=== PATIENT | male | born 1940 | race Caucasian/White ===

== ENCOUNTER → 2017-12-05 11:03 | Outpatient (CLI) | payer MEDICARE, OTHER, SELFPAY | PROVIDERS: Family Provider Family Medicine; PCP Family Medicine; Visit Provider Nurse Practitioner Acute Care | DX: G47.33 Obstructive sleep apnea (adult) (pediatric) (principal) | CPT/HCPCS: 98960; G0463 ==

== ENCOUNTER 2017-12-20 13:00 | Outpatient (RCR) | payer MEDICARE, OTHER, SELFPAY ==
--- NOTE | 2017-12-01 09:19 | HP.OTEVAL ---
Patient's Visit Information JADE CHAVIRA is a 77 year old M, referred to Occupational Therapy by Kell Crenshaw, JENC,POWER TOOL REPAIR TECHNICIAN.GUNNAR, with a diagnosis of left hand weakness. 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 pt unable to identify objects given to him for stereognosis - In-Hand Manipulation Finger to Palm Translation: Normal - Right, Severe - Left, Unable - Left Palm to Finger Translation: Normal - Right, Unable - Left Shift: Normal - Right, Severe - Left - DASH-Disabilities of Arm, Shoulder& Hand DASH Sum: 90 - Goals Goal:: pt will demo a increase in left installation service representative to 55# or greater to increase ind. with BADLS and IADSL. Pt will demo a increase in left later/tripod pinch by 4# to increase ind with bathing-dressing and work tasks by d/c Goal:: pt will demo the ability to manipulate fasteners at a PRASANTH level with ad. as needed by d/c Goal:: pt will demo understanding of visual compensation for lack of sensation of left hand for increase ind. with BADLS and IADLS by d/c - Rehabilitation General Assessment: pt demo decreased strenght in LUE due to hx of CVA- pt also demo decrease sensation limiting pts ability to hold onto objects. Therpay will challenge pts strength and ed. pt on visual compensatory raza. when using left hand with BADLS Rehabilitation Potential: Good - Anticipated Interventions Anticipated Interventions: Strengthening, Sensory Retraining, Modalities, Fine Motor Coord/Charles, Neuro Reeducation, Sensory Stimulation, Education re assistive Equipment - Visit Plan Frequency: 1-2x /Week Duration: 4 Weeks General Plan: OT will initiate increase in left UE strengthening to increase pts ind. with BADLS and IADLS- therapy will ed. pt on ad. eq and viusal compensation with BADLS and IADLS. TEXT: Thank you for the opportunity to evaluate your patient. For Medicare and Medicare HMO plans, please review the plan of care and approve it. It will need to be FAXED BACK to us at [phone] for Medicare purposes. Please let me know if there are questions or concerns regarding this plan of care. Physician Signature: Date:
--- NOTE | 2018-03-27 14:55 | HP.OT.NRP ---
HP - Discharge Summary - Patient Information JADE CHAVIRA was seen in my office for initial evaluation on 11/28/17. The following Plan of Care was established for this patient: Initial Frequency: 1-2x /Week Initial Duration: 4 Weeks Plan: cont POC - Anticipated Interventions Anticipated Interventions: Strengthening, Sensory Retraining, Modalities, Fine Motor Coord/Charles, Neuro Reeducation, Sensory Stimulation, Education re assistive Equipment, Education re Life-long lymphedema Management This patient was last seen in our office 12/20/17. Pertinent comments regarding their Occupational therapy will appear below: Pt was seen for 6 visits- pts states she did not see any changes in his abilities or sensation. pt d/c due to lack of progress At this point I will be discontinuing this patient from occupational therapy. I would be happy to see this patient again in the future if found appropriate by the physician. Thank you! Ritika Gipson, OTR/L, CHT
== END 2017-12-20 19:00 | disposition home or self-care (01) ==
LOC: OT 13:00
PROVIDERS: Family Provider Family Medicine; PCP Family Medicine; Visit Provider Nurse Practitioner Acute Care
DX: R53.1 Weakness (principal)
CPT/HCPCS: 97110; 97166; 97530

== ENCOUNTER 2018-02-25 16:34 | Emergency (ER) | payer MEDICARE, OTHER, SELFPAY ==
[2018-02-25 16:35] VITALS: BP 148/64; PULSE 79; RESP 18; TEMP 37.2; O2SAT 99; BMI 20.7
--- NOTE | 2018-02-25 17:00 | RAD_ITS ---
XR Hand Min 3 Views INDICATION: FALL RILEY, BRUISING AND SWELLING LEFT 3-5 METACARPAL AREA, UNABLE TO REMOVE RING COMPARISON: None TECHNIQUE: 3 views of the left hand FINDINGS: The osseous structures are intact and well aligned. Interphalangeal joint spaces are decreased with marginal osteophytes. Degenerative joint space narrowing is also present at the carpal bones and radiocarpal joint. No evidence of acute fracture. RAD/Hand Min 3 Views IMPRESSION: Degenerative changes. No evidence of acute fracture. at 1743 Reported and signed by: Lila Katz MD Electronically Signed: Lila Katz MD at 17:41 EDT Tel , Service support ,
--- NOTE | 2018-02-25 18:17 | ED.VISSUMM ---
- ER Visit Summary Date of Service: 02/25/18 Chief Complaint: Left hand swollen History of Present Illness: The patient is a [address] Rina Gupta. Reports that he has a history of a stroke and since that time his had problems with his balance. States that 2 days ago he lost his balance and fell. Cut himself his left hand. Reports that his left hand is now swollen. He has a dull pain that is 4-10 with movement 2 out of 10 at rest. He denies any blow to the head or loss of consciousness. No neck, back, shoulder, wrist, or hip pain. Review of systems: General: No fever, chills, cold sweats. Cardiovascular: No chest pain, palpitations. Respiratory: No cough, shortness of breath, dyspnea on exertion. Gastrointestinal: No abdominal pain, nausea, vomiting, diarrhea, melena, or hematochezia. Genitourinary: No dysuria, frequency, hematuria. Skin: No rash. Neuro: No headache, numbness, weakness. Physical Examination: Vitals: Stable. Afebrile. Neck: No vertebral tenderness. Full ROM without difficulty. Cleared by NEXUS criteria. Back: No vertebral tenderness. General: A&O x 3. NAD. Cardiovascular exam: Regular rate and rhythm, no murmur, rub or gallop. Respiratory exam: Chest nontender. No crepitus. Clear to auscultation bilaterally. No wheezes or stridor. Abdominal exam: Soft, nontender, nondistended, normal bowel sounds. No pain in RUQ or LUQ specifically. No peritoneal signs. Extremity: Moderate soft tissue swelling and contusion to the dorsum of his left hand. It is minimally tender to palpation. He is neurovascular intact distally. Test Results: X-ray is negative. Emergency Department Course and Treatment: Patient refused pain medications. Treatment Plan: Patient be discharged instructions to ice and elevate the area. Follow-up his primary care physician 1 week if not improving. Return to the emergency department for any worsening symptoms. Disposition: To home in improved and stable condition. Impression: 1. Mechanical fall. 2. Left hand contusion. This note was generated with [employer] software. It may contain incorrect words, spelling, and punctuation that were not noted in review of the chart prior to signing ED Disposition - Plan for ED Patient: Disposition: Home or Assisted Living Chief Complaint: Upper Extremity Injury Instructions: ED Contusion Hand Referrals: London Gupta MD [Primary Care Provider] - 1 Week if not improving
[2018-02-25 18:37] VITALS: PULSE 82; RESP 17; O2SAT 97
== END 2018-02-25 18:38 | disposition home or self-care (01) ==
LOC: ED 17:21
PROVIDERS: Emergency Provider Emergency Medicine; Family Provider Family Medicine; PCP Family Medicine
DX: S60.222A Contusion of left hand, initial encounter (principal); I69.998 Other sequelae following unspecified cerebrovascular disease; I62.9 Nontraumatic intracranial hemorrhage, unspecified; I25.10 Atherosclerotic heart disease of native coronary artery without angina pectoris; M35.3 Polymyalgia rheumatica; Z79.02 Long term (current) use of antithrombotics/antiplatelets; Z79.4 Long term (current) use of insulin; Z79.899 Other long term (current) drug therapy; W18.30XA Fall on same level, unspecified, initial encounter; Y93.89 Activity, other specified; Y92.89 Other specified places as the place of occurrence of the external cause; Y99.8 Other external cause status
CPT/HCPCS: 73130; 99282

== ENCOUNTER → 2018-10-03 10:05 | Outpatient (CLI) | payer MEDICARE, OTHER, SELFPAY ==
[2018-09-24 11:35] VITALS: BMI 21.9
[2018-10-03 11:41] LABS: Absolute Lymphocyte Count 0.86 X10^3/ul (0.83-4.51); Absolute Neutrophil Count 4.4 X10^3/uL (2.0-7.7); Basophil# 0.02 X10^3/uL; Basophil% 0.3 % (0-1); Eosinophil# 0.14 X10^3/uL; Eosinophils% 2.4 % (0-5); Hematocrit 40.7 % (40-54); Hemoglobin 13.9 g/dl (13.0-16.5); Lymphocyte # 0.86 X10^3/ul (4.0); Lymphocyte % 14.6 % (19-41); Mean Corp Hgb Conc 34.2 g/gl (32-36); Mean Corpuscular Hgb 30.8 pg (27.0-32.0); Mean Corpuscular Volume 90.2 fL (80-94); Monocyte# 0.41 X10^3/uL; Neutrophil # 4.44 X10^3/uL (2.7-7.7); Neutrophil % 75.4 % (47-70); Platelet Count 177 K/mm3 (150-450); RBC Distribution Width SD 42.3 fl (35.1-43.9); Red Blood Count 4.51 M/mm3 (4.6-6.2); White Blood Count 5.9 K/mm3 (4.4-11.0)
[2018-10-03 11:45] LABS: POSITIVE COUNT NO; POSITIVE DIFFERENTIAL NO; POSITIVE MORPHOLOGY NO
[2018-10-03 12:06] LABS: ALB/GLOB Ratio 1.1 RATIO (0.9-2.4); AST(SGOT) 23 U/L (15-37); Alanine Aminotransfer ALT/SGPT 23 U/L (16-61); Albumin, Serum 3.5 g/dL (3.2-5.0); Alkaline Phosphatase 98 U/L (45-117); Anion Gap 8 (5-15); BUN 21 mg/dL (7-18); BUN/Creat Ratio 22.1 RATIO (10-20); Bilirubin, Direct 0.19 mg/dL (0.00-0.30); Calcium,Total 8.8 mg/dL (8.5-10.1); Chloride 101 mmol/L (98-107); Cholesterol 161 mg/dL (200); Creatinine, Serum 0.95 mg/dL (0.70-1.30); EST Glomerular Filtration Rate 81 mL/min (>60); Est Glom Filt Rate - Afr Amer 98 mL/min (>60); Globulin 3.3 g/dL (2.2-4.2); Glucose 97 mg/dL (74-106); High Density Lipoprotein 50 mg/dL; Potassium 4.3 mmol/L (3.5-5.1); Protein, Total 6.8 g/dL (6.4-8.2); Sodium Level 139 mmol/L (136-145); Triglycerides 90 mg/dL; Very Low Density Lipoprotein 18 mg/dL (5-40)
--- OUTSIDE RECORDS SUMMARY | 2018-11-28 18:35 | XMS RPT_ITS ---
:1940 Author Organization OHIP Support Name Relationship Address Phone CAIT DAVID Unavailable [address] + [place] [phone] CAIT, ADRYAN Unavailable Unavailable + S Unavailable Unavailable Unavailable CAIT, DAVID Unavailable [address] + [place] [phone] CAITMIKE GABRIELITH Unavailable NA + [place], [place] R Unavailable Unavailable Unavailable CAIT, DAVID Unavailable [address] + [place] [phone] CAITMIKE GABRIELITH Unavailable NA + [place], [place] R Unavailable Unavailable Unavailable CAIT, DAVID Unavailable [address] + [place] [address] CAITMIKE GABRIELITH Unavailable NA + [place], [place] R Unavailable Unavailable Unavailable CAIT, DAVID Unavailable [address] + [place] [address] CAIT, ADRYAN Unavailable NA + [place], [place] R Unavailable Unavailable Unavailable CAIT, DAVID Unavailable [address] + [place] [phone] CAIT, ADRYAN Unavailable NA + [place], [place] R Unavailable Unavailable Unavailable CAIT, DAVID Unavailable [address] + [place] [phone] CAITMIKE GABRIELITH Unavailable NA + [place], [place] R Unavailable Unavailable Unavailable CAIT, DAVID Unavailable [address] + [place] [phone] CAITMIKE GABRIELITH Unavailable / + [place] [phone] R Unavailable Unavailable Unavailable CAIT, DAVID Unavailable [address] + [place] [address] ADRYAN CHAVIRA Unavailable / + [place] [address] R Unavailable Unavailable Unavailable Care Team Providers Name Role Phone Kell Crenshaw LONG TERM CARE PHARMACIST-C Attending Unavailable Alonso, London Primary Care Unavailable Den, Kell LONG TERM CARE PHARMACIST-C Referring Unavailable DenKell LONG TERM CARE PHARMACIST-C Attending Unavailable Alonso, London Primary Care Unavailable Den, Radiant LONG TERM CARE PHARMACIST-C Referring Unavailable Yunior Payton Attending Unavailable Ritika Cruz Attending Unavailable Alonso, London Referring Unavailable Alonso, London Primary Care Unavailable Kell Crenshaw LONG TERM CARE PHARMACIST-C Attending Unavailable Alonso, London Primary Care Unavailable Edgardo Flynn Attending Unavailable Alonso, London Referring Unavailable Alonso, London Primary Care Unavailable Dm Grajeda Attending Unavailable Ritika Cruz Attending Unavailable Alonso, London Referring Unavailable Ritika Cruz M Attending Unavailable Ritika Cruz Referring Unavailable Alonso, London Primary Care Unavailable PROBLEMS PROBLEMS DATE TYPE CONDITION / CODE ATTENDING STATUS SOURCE 10/03/2018 Unknown I25.810 - Cruz, Active [place] [facility] coronary artery Hospital bypass graft(s) Repository without angina pectoris / I25.810(ICD-10) 10/03/2018 Unknown I10 - Essential Cruz, Active [place] (primary) [facility] hypertension / Hospital I10(ICD-10) Repository 10/03/2018 Unknown E78.5 - Cruz, Active [place] Hyperlipidemia, [facility] unspecified / Hospital E78.5(ICD-10) Repository 10/03/2018 Unknown G45.9 - Transient Cruz, Active [place] cerebral ischemic [facility] attack, unspecified / Hospital G45.9(ICD-10) Repository 03/28/2018 Unknown R53.1 - Weakness / DenKell Active [place] R53.1(ICD-10) LONG TERM CARE PHARMACIST-C [facility] Hospital Repository PROCEDURES PROCEDURES No Procedure Records FoundRESULTS RESULTS CBC W/DIFF, AUTOMATED Collected: 10/03/2018 Status: F Source: [place] 10:19 AM [facility] REPOSITORY Order Comment: CANT ORDER LIVER AND CMP TOGETHER BID ORDERED TYPE CODE TESTS RESULT OUT OF RANGE REFERENCE UNITS LAB L100.1000 4.4-11.0 K/mm3 Normal WBC 5.9 LAB L100.1200 4.6-6.2 M/mm3 Low RBC 4.51 LAB L100.1300 13.0-16.5 g/dl Normal HGB 13.9 LAB L100.1400 40-54 % Normal HCT 40.7 LAB L100.1500 80-94 fL Normal MCV 90.2 LAB L100.1600 27.0-32.0 pg Normal MCH 30.8 LAB L100.1700 32-36 g/gl Normal MCHC 34.2 LAB L100.1810 11.6-14.6 % Normal RDW CV 13.0 LAB L100.1820 35.1-43.9 fl Normal RDW SD 42.3 LAB L100.1900 150-450 K/mm3 Normal PLT 177 LAB L100.2000 6.2-12.0 fl Normal MPV 10.0 LAB L100.2100 47-70 % High NEUT% 75.4 LAB L100.2200 19-41 % Low LY% 14.6 LAB L100.2300 0-10 % Normal MONO% 7.0 LAB L100.2400 0-5 % Normal EO% 2.4 LAB L100.2500 0-1 % Normal BASO% 0.3 LAB L100.2550 0.0-0.9 % Normal IM GRAN % 0.300 Result Comment: IG% - Immature Granulocytes (promyelocytes, myelocytes and metamyelocytes) > 1% indicates that a LEFT SHIFT is Present. LAB L100.2620 2.0-7.7 X10 3/uL Normal Absolute Neut 4.4 LAB L100.2720 0.83-4.51 X10 3/ul Normal Absolute Lymph 0.86 Performed By: #### L100.0100 #### [facility] [address] [place], [address] COMPREHENSIVE METABOLIC Collected: 10/03/2018 Status: F Source: [place] 10:19 AM [facility] REPOSITORY Order Comment: CANT ORDER LIVER AND CMP TOGETHER BID ORDERED TYPE CODE TESTS RESULT OUT OF RANGE REFERENCE UNITS LAB L501.0100 74-106 mg/dL Normal GLU 97 Result Comment: Please note revised GLUCOSE reference range effective 2017. LAB L501.1000 7-18 mg/dL High BUN 21 LAB L501.1100 0.70-1.30 mg/dL Normal CREAT,SERUM 0.95 Result Comment: The validity of the calculated GFR AND GFRAA in patients over 70 years has not been determined. Clinical correlation is essential. LAB L501.1110 >60 mL/min Normal EST GFR 81 Result Comment: Non- GFR Calc LAB L501.1115 >60 mL/min Normal EST GFR - AA 98 Result Comment: GFR Calc LAB L501.1300 10-20 RATIO High BUN/CRE 22.1 LAB L501.1500 6.4-8.2 g/dL T Normal PROT 6.8 LAB L501.1800 3.2-5.0 g/dL Normal ALB 3.5 LAB L501.1950 2.2-4.2 g/dL Normal GLOB 3.3 LAB L501.2000 0.9-2.4 RATIO Normal A/G 1.1 LAB L501.2200 8.5-10.1 mg/dL CA Normal 8.8 LAB L501.4100 15-37 U/L Normal AST 23 LAB L501.4305 45-117 U/L Normal ALK P 98 LAB L501.4405 16-61 U/L Normal ALT 23 LAB L501.4600 0.20-1.00 mg/dL T Normal BILI 0.90 LAB L501.5300 136-145 mmol/L NA Normal 139 LAB L501.5600 3.5-5.1 mmol/L K Normal 4.3 LAB L501.5900 98-107 mmol/L CL Normal 101 LAB L501.6100 21.0-32.0 mmol/L Normal CO2 30.0 LAB L501.6200 5-15 Normal GAP 8 Performed By: #### L500.4050, L500.4100, L501.4700 #### [facility] [address] [place], [place], [id number] LIPID PROFILE Collected: 10/03/2018 Status: F Source: [place] 10:19 AM [facility] REPOSITORY Order Comment: CANT ORDER LIVER AND CMP TOGETHER BID ORDERED TYPE CODE TESTS RESULT OUT OF RANGE REFERENCE UNITS LAB L501.4900 200 mg/dL Normal CHOL 161 Result Comment: <200 mg/dL Desirable 200-240 mg/dL Borderline >240 mg/dL High Risk LAB L501.5000 mg/dL Normal TRIG 90 Result Comment: The drugs N-Acetylcysteine and Metamizole may falsely depress this assay. Serum Triglycerides Reference Interval Normal <150 mg/dL Borderline high 150 - 199 mg/dL High 200 - 499 mg/dL Very High > or = 500 mg/dL LAB L501.6400 mg/dL Normal HDL 50 Result Comment: The drugs N-Acetylcysteine and Metamizole may falsely depress this assay. Reference Range HDL <40 mg/dL Low HDL Cholesterol HDL >or= 60 mg/dL High HDL Cholesterol LAB L501.6500 0-130 mg/dL Normal LDL 93 LAB L501.6600 5-40 mg/dL Normal VLDL 18 Performed By: #### L500.4050, L500.4100, L501.4700 #### [facility] [address] [place], [address] BILIRUBIN, DIRECT Collected: 10/03/2018 Status: F Source: [place] 10:19 AM [facility] REPOSITORY Order Comment: CANT ORDER LIVER AND CMP TOGETHER BID ORDERED TYPE CODE TESTS RESULT OUT OF RANGE REFERENCE UNITS LAB L501.4700 0.00-0.30 mg/dL Normal D BILI 0.19 Performed By: #### L500.4050, L500.4100, L501.4700 #### [facility] [address] [place], [address] CARDIOLOGY VISIT Observed: 09/24/2018 Status: F Source: [place] REPORT 1:08 PM [facility] REPOSITORY [facility] [address] [place] [address] OFFICE VISIT Date of Service: 09/24/18 MR#: [id number] Acct: [id number] Name: JADE CHAVIRA Rep #: [id number] : 1940 Provider: Ritika Cruz Age/Sex: 78/M Location: [facility] Status: Signed HPI HPI Details: JADE CHAVIRA, is a 78 M who presents to the office today for a cardiovascular followup. Patient has a history of coronary artery disease with bypass surgery in 2013. He had an WOLF to the LAD, SVG sequential to the intermediate ramus and circumflex OM system, he had an SVG to the RCA. He also has a history of hyperlipidemia.TIA and diabetes. He does not have any chest discomfort/heaviness/tightness. 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 He does not have any worsening symptoms of shortness of breath. He denies any PND. He does not have any orthopnea. He does not have any symptoms of congestive heart failure. He does not have any palpitations that he is aware of. He does not have any lightheadedness or dizziness. He does not have any near-syncope or syncope. He does not have any lower extremity edema. He does not have any symptoms of claudication. Intake Vital Signs09/24/18 Height 5 ft 9 in 09/24/18 Weight: 149 lb 09/24/18 Body Mass Index (BMI) 21.9 09/24/18 Blood Pressure 134/78 H 09/24/18 Blood Pressure Location Lt brachial Intake Visit Reasons: 9 M Oil Paint Shader Required: No Accompanied by: Is patient in pain?: No Allergies codeine Allergy (Verified 09/24/18 11:36) Hives gabapentin Allergy (Verified 09/24/18 11:36) Rash hydrocodone bitartrate [From Vicodin] Allergy (Verified 09/24/18 11:36) Rash oxycodone [From OxyContin] Allergy (Verified 09/24/18 11:36) Rash oxycodone HCl [From Percocet] Allergy (Verified 09/24/18 11:36) Hives Penicillins [PCN] Allergy (Verified 09/24/18 11:36) Rash Sulfa (Sulfonamide Antibiotics) Allergy (Verified 09/24/18 11:36) Rash tramadol Allergy (Verified 09/24/18 11:36) Unknown glyburide Adverse Reaction (Verified 09/24/18 11:36) Diarrhea metformin Adverse Reaction (Verified 09/24/18 11:36) Diarrhea Medications Multivitamin [Daily Multiple Vitamin] 1 ea PO DAILY 01/05/16 [History Confirmed 09/24/18] Clopidogrel Bisulfate [Plavix] 75 mg PO DAILY #90 tab 02/01/16 [Rx Confirmed 09/24/18] Pramipexole Di-HCl [Mirapex] 0.5 mg PO QHS 08/20/16 [History Confirmed 09/24/18] Calcium Carbonate/Vitamin D3 [Calcium 600-Vit D3 200 Tablet] 2 ea PO DAILY 09/28/16 [History Confirmed 09/24/18] Insulin Glargine [Lantus SoloStar Pen] 8 units SC DAILY 09/28/16 [History Confirmed 09/24/18] alfalfa tablet 1 tab PO .QD 11/29/17 [History Confirmed 09/24/18] carvedilol 3.125 mg tablet 3.125 mg PO BID #180 tab 12/13/17 [Rx Confirmed 09/24/18] prednisone 5 mg tablet 5 mg PO DAILY tab 12/13/17 [History Confirmed 09/24/18] PFSH Medical History Premature ventricular contractions (Chronic) TIA (transient ischemic attack) (Chronic) DM type 2 (diabetes mellitus, type 2) (Chronic) CAD (coronary artery disease) (Chronic) CVA (cerebral vascular accident) (Chronic) Dyslipidemia (Chronic) Surgical History Presence of aortocoronary bypass graft (Chronic) Family History Father No problems noted. Social History Smoking Status: Never smoker alcohol intake: never substance use type: does not use caffeine: No what type of physical activity do you participate in: other details: PT frequency: 1-2 times per week duration: 30-45 minutes/day seatbelt use: always do you feel safe at home: Yes ROS Const Const: Negative for weakness, fatigue, fever(s) or headache(s) Eyes Eyes: Negative for blind spots, loss of peripheral vision or transient loss of vision ENT ENT: Negative for headache(s), dizziness, tinnitus or Nosebleed/epistaxis Cardio Chest Pain: No Palpitations: No Edema: None Muscle aches with walking: None Resp Respiratory: Negative for SOB with activity, SOB at rest, SOB orthopnea\SOB lying down or Cough GI GI: Negative nausea, vomiting, heartburn or vomiting blood/hematemesis : Negative for hematuria Musc Musc: Negative for muscle aches/ myalgia Neuro Neuro: Negative for weakness, headache(s), dizziness, near syncope, syncope, lightheadedness or orthostatic symptoms Randal Hematologic/Lymphatic: Negative for easy bleeding Endo Endo: Negative for fatigue Cardiology Exam Const Appearance: cooperative, no acute distress and well developed Orientation: alert, awake and oriented x3 Head Head: normocephalic and atraumatic Mouth: moist mucous membranes Eyes General: appearance normal, both eyes and all related structures Conjunctivae: conjunctivae normal Pupils: PERRL EOM: EOM intact bilaterally Neck Neck: normal visual inspection, no lymphadenopathy and no JVD Carotids: Negative bruit Neck Mass: Negative Neck mass Chest Chest inspection: normal inspection of the chest, symmetric chest movement and midline sternotomy incision Auscultation: Bilateral: Clear to Auscultation Cardio Palpation: normal PMI Rate: regular rate Rhythm: regular rhythm Heart sounds: S1 normal and S2 normal; negative rub, gallop or murmur GI GI: normal to inspection, soft, no hepatosplenomegaly and bowel sounds present; negative tender Neuro General: alert, awake, oriented x3, CN's II-XI intact bilaterally and moves all extremities left sided weakness Extremities Pulses: Normal: Right Posterior Tibial Pulse, Left Posterior Tibial Pulse, Right Radial Pulse, Left Radial Pulse Lower Extremity Edema: None: Bilateral Psych Psychological: normal affect Supplemental Info MARIA GUADALUPE in 2016 demonstrated Segmental dysfunction with preserved ejection fraction (see wall motion). The estimated ejection fraction is 55 %. Sigmoid septum. The left atrium is mildly enlarged. Mild diffuse mitral valve thickening. Mild-Moderate (1-2+) mitral valve insufficiency. Mild tricuspid valve insufficiency. Mild diffuse aortic valve thickening. Mild (1+) pulmonic valve insufficiency. Bubble contrast study negative for right to left interatrial shunt. Mild atherosclerosis of the descending aorta. No obvious intracardiac mass lesion / thrombus identified. Assessment AND Plan 1. CAD (coronary artery disease) I25.810 CABG LAD to WOLF, SVG to RCA, SVG to lateral and ramus branches of CFX 06/19 Plan Stable, from a cardiac standpoint patient does not have any symptoms of angina. We recommend that they continue with current aggressive medical management and risk factor modification. Orders Orders: 2. Transient cerebral ischemia, unspecified type G45.9 Plan Patient has not had any further recurrence. We will continue with current medications. Orders Orders: 3. HTN (hypertension) I10 Plan Blood pressure is well controlled on current medications, we do not recommend any changes at this time. Orders Orders: 4. Dyslipidemia E78.5 Plan Patient is currently not on any lipid-lowering medication. He will continue with his current dietary control. We will continue to monitor with periodic lipids. Orders Orders: Plan Detail Additional Comments Thank you for allowing us to participate in patient's plan of care, if you have any questions please do not hesitate to call. This note was generated using a voice recognition system and there may be incorrect words, spelling or punctuation errors that were not noted when reviewing the office note prior to saving. Follow Up 6 Months (MMM) 1 Year (PFM) Coding Level of Care Code Off vis,est,level 3 Diagnoses CAD (coronary artery disease) I25.810 Coronary Disease-Associated Artery/Lesion type: bypass graft [place] vs. transplanted heart: [place] heart Associated angina: angina presence unspecified Transient cerebral ischemia, unspecified type G45.9 Transient cerebral ischemia type: unspecified HTN (hypertension) I10 Hypertension type: essential hypertension Hypertension goal: less than 140/90 Dyslipidemia E78.5 Coding Level of Care Code Off vis,est,level 3 Diagnoses CAD (coronary artery disease) I25.810 Coronary Disease-Associated Artery/Lesion type: bypass graft [place] vs. transplanted heart: [place] heart Associated angina: angina presence unspecified Transient cerebral ischemia, unspecified type G45.9 Transient cerebral ischemia type: unspecified HTN (hypertension) I10 Hypertension type: essential hypertension Hypertension goal: less than 140/90 Dyslipidemia E78.5 09/24/18 1308 <Electronically signed by Ritika MENG> Date Ritika MENG Cosigner Signature: Date (if applicable) CC: [place] Gupta MD OT D/C OF NON Observed: 03/27/2018 Status: F Source: [place] [facility] PT 3:48 PM [facility] REPOSITORY [facility] Occupational Therapy [facility] [place] [address] Fax REHABILITATION SERVICES DISCHARGE SUMMARY MR#: [id number] Acct: [id number] Name: JADE CHAVIRA Rep #: [id number] : 1940 77 From: Ritika Gipson OTR/Yahir, CHT Referring Dr.: VIVEK Crenshaw Status: REG RCR Eval Date: Discharge Date: HP - Discharge Summary - Patient Information JADE CHAVIRA was seen in my office for initial evaluation on 11/28/17. The following Plan of Care was established for this patient: Initial Frequency: 1-2x /Week Initial Duration: 4 Weeks Plan: cont POC - Anticipated Interventions Anticipated Interventions: Strengthening, Sensory Retraining, Modalities, Fine Motor Coord/Charles, Neuro Reeducation, Sensory Stimulation, Education re assistive Equipment, Education re Life-long lymphedema Management This patient was last seen in our office 12/20/17. Pertinent comments regarding their Occupational therapy will appear below: Pt was seen for 6 visits- pts states she did not see any changes in his abilities or sensation. pt d/c due to lack of progress At this point I will be discontinuing this patient from occupational therapy. I would be happy to see this patient again in the future if found appropriate by the physician. Thank you! Ritika Gipson OTR/Yahir, CHT <Electronically signed by Ritika GREY/Yahir, CHT> 03/27/18 1548 CC: VIVEK Crenshaw; London Gupta MK Signed EMERGENCY DEPARTMENT Observed: 02/26/2018 Status: F Source: [place] SUMMARY 12:16 AM [facility] Medical Records Department [address] [place] [address] Emergency Department Summary 02/25/18 1817 MR#: [id number] Acct: [id number] Name: JADE CHAVIRA Rep #: [id number] : 1940 77 From: Dm Grajeda MD PCP: London Gupta Status: DEP ER - ER Visit Summary Date of Service: 02/25/18 Chief Complaint: Left hand swollen History of Present Illness: The patient is a [address] Rina Gupta. Reports that he has a history of a stroke and since that time his had problems with his balance. States that 2 days ago he lost his balance and fell. Cut himself his left hand. Reports that his left hand is now swollen. He has a dull pain that is 4-10 with movement 2 out of 10 at rest. He denies any blow to the head or loss of consciousness. No neck, back, shoulder, wrist, or hip pain. Review of systems: General: No fever, chills, cold sweats. Cardiovascular: No chest pain, palpitations. Respiratory: No cough, shortness of breath, dyspnea on exertion. Gastrointestinal: No abdominal pain, nausea, vomiting, diarrhea, melena, or hematochezia. Genitourinary: No dysuria, frequency, hematuria. Skin: No rash. Neuro: No headache, numbness, weakness. Physical Examination: Vitals: Stable. Afebrile. Neck: No vertebral tenderness. Full ROM without difficulty. Cleared by NEXUS criteria. Back: No vertebral tenderness. General: A AND O x 3. NAD. Cardiovascular exam: Regular rate and rhythm, no murmur, rub or gallop. Respiratory exam: Chest nontender. No crepitus. Clear to auscultation bilaterally. No wheezes or stridor. Abdominal exam: Soft, nontender, nondistended, normal bowel sounds. No pain in RUQ or LUQ specifically. No peritoneal signs. Extremity: Moderate soft tissue swelling and contusion to the dorsum of his left hand. It is minimally tender to palpation. He is neurovascular intact distally. Test Results: X-ray is negative. Emergency Department Course and Treatment: Patient refused pain medications. Treatment Plan: Patient be discharged instructions to ice and elevate the area. Follow-up his primary care physician 1 week if not improving. Return to the emergency department for any worsening symptoms. Disposition: To home in improved and stable condition. Impression: 1. Mechanical fall. 2. Left hand contusion. This note was generated with [employer] dictation software. It may contain incorrect words, spelling, and punctuation that were not noted in review of the chart prior to signing ED Disposition - Plan for ED Patient: Disposition: Home or Assisted Living Chief Complaint: Upper Extremity Injury Instructions: ED Contusion Hand Referrals: London Gupta MD [Primary Care Provider] - 1 Week if not improving What to do if you have Problems For any increased pain, shortness of breath, bleeding, nausea or vomiting, chest pain, or any unexpected problems, contact your Primary Care Provider. Call [facility] ([phone]) or report to the closest Emergency Room. Call 911 if necessary. 02/26/18 0016 <Electronically signed by Dm Grajeda MD> Date Dm Grajeda MD Cosigner Signature (If Indicated): Date CC: London Gupta HAND MIN 3 VIEWS Observed: 02/25/2018 Status: F Source: [place] 5:01 PM [facility] REPOSITORY [facility] Imaging Services [address] [place] [address] Hand Min 3 Views MR#: [id number] Acct: [id number] Name: JADE CHAVIRA Rep #: [id number] : 1940 M 77 From: Lila Katz MD PCP: London Gupta Status: REG ER Study: Hand Min 3 Views Date of Exam: 02/25/18 Exam# [id number] Ordering Dr: Dm Grajeda MD XR Hand Min 3 Views INDICATION: FALL MONDAY, BRUISING AND SWELLING LEFT 3-5 METACARPAL AREA, UNABLE TO REMOVE RING COMPARISON: None TECHNIQUE: 3 views of the left hand FINDINGS: The osseous structures are intact and well aligned. Interphalangeal joint spaces are decreased with marginal osteophytes. Degenerative joint space narrowing is also present at the carpal bones and radiocarpal joint. No evidence of acute fracture. RAD/Hand Min 3 Views IMPRESSION: Degenerative changes. No evidence of acute fracture. at 1743 Reported and signed by: Lila Katz MD Electronically Signed: Lila Katz MD at 17:41 EDT Tel , Service support , CC: Dm Grajeda MD; London Gupta Allergist/Pediatric Pulmonologist: Signed CARDIOLOGY VISIT Observed: 12/14/2017 Status: F Source: [place] REPORT 11:18 AM [facility] REPOSITORY [facility] [address] [place] [address] OFFICE VISIT Date of Service: 12/13/17 MR#: [id number] Acct: [id number] Name: JADE CHAVIRA Rep #: [id number] : 1940 Provider: Ritika Cruz Age/Sex: 77/M Location: [facility] Status: Signed HPI HPI Details: JADE CHAVIRA, is a 77 M who presents to the office today for a cardiovascular followup. Patient has a history of coronary artery disease with bypass surgery in 2013. He had an WOLF to the LAD, SVG sequential to the intermediate ramus and circumflex OM system, he had an SVG to the RCA. He also has a history of hyperlipidemia and diabetes. MARIA GUADALUPE in 2016 demonstrated Segmental dysfunction with preserved ejection fraction (see wall motion). The estimated ejection fraction is 55 %. Sigmoid septum. The left atrium is mildly enlarged. Mild diffuse mitral valve thickening. Mild-Moderate (1-2+) mitral valve insufficiency. Mild tricuspid valve insufficiency. Mild diffuse aortic valve thickening. Mild (1+) pulmonic valve insufficiency. Bubble contrast study negative for right to left interatrial shunt. Mild atherosclerosis of the descending aorta. No obvious intracardiac mass lesion / thrombus identified. From a cardiac standpoint, patient is doing well. He does not have any chest discomfort/heaviness/tightness. His exercise tolerance is stable for his age. 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 He does not have any worsening symptoms of shortness of breath. He denies any PND. He does not have any orthopnea. He does not have any symptoms of congestive heart failure. He does not have any palpitations that he is aware of. He does not have any lightheadedness or dizziness. He does not have any near-syncope or syncope. He does not have any lower extremity edema. He does not have any symptoms of claudication. Intake Vital Signs12/13/17 Weight: 151 lb 12/13/17 Blood Pressure 110/70 12/13/17 Blood Pressure Location Lt brachial 12/13/17 Blood Pressure Position Sitting Intake Visit Reasons: 6 M FU Oil Paint Shader Required: No Accompanied by: Is patient in pain?: No Allergies codeine Allergy (Verified 12/12/17 23:27) Hives gabapentin Allergy (Verified 12/12/17 23:27) Rash hydrocodone bitartrate [From Vicodin] Allergy (Verified 12/12/17 23:27) Rash oxycodone [From OxyContin] Allergy (Verified 12/12/17 23:27) Rash oxycodone HCl [From Percocet] Allergy (Verified 12/12/17 23:27) Hives Penicillins [PCN] Allergy (Verified 12/12/17 23:27) Rash Sulfa (Sulfonamide Antibiotics) Allergy (Verified 12/12/17 23:27) Rash tramadol Allergy (Verified 12/12/17 23:27) Unknown glyburide Adverse Reaction (Verified 12/12/17 23:27) Diarrhea metformin Adverse Reaction (Verified 12/12/17 23:27) Diarrhea Medications Multivitamin [Daily Multiple Vitamin] 1 ea PO DAILY 01/05/16 [History Confirmed 11/29/17] Clopidogrel Bisulfate [Plavix] 75 mg PO DAILY #90 tab 02/01/16 [Rx Confirmed 11/29/17] Pramipexole Di-HCl [Mirapex] 0.5 mg PO QHS 08/20/16 [History Confirmed 11/29/17] Calcium Carbonate/Vitamin D3 [Calcium 600-Vit D3 200 Tablet] 2 ea PO DAILY 09/28/16 [History Confirmed 12/13/17] Insulin Glargine [Lantus SoloStar Pen] 12 units SC DAILY 09/28/16 [History Confirmed 12/13/17] Acetaminophen [Tylenol Tablet] 650 mg PO Q6H #90 tab 10/14/16 [Rx Confirmed 12/13/17] alfalfa tablet tab PO .QD 11/29/17 [History Confirmed 11/29/17] carvedilol 3.125 mg tablet 3.125 mg PO BID #180 tab 12/13/17 [Rx Confirmed 12/13/17] prednisone 5 mg tablet 7.5 mg PO DAILY tab 12/13/17 [History Confirmed 12/13/17] Ejection fraction %: 55 to 59 PFSH Medical History Premature ventricular contractions (Chronic) TIA (transient ischemic attack) (Chronic) DM type 2 (diabetes mellitus, type 2) (Chronic) CAD (coronary artery disease) (Chronic) CVA (cerebral vascular accident) (Chronic) Dyslipidemia (Chronic) Surgical History Presence of aortocoronary bypass graft (Chronic) Family History Father No problems noted. Social History Smoking Status: Never smoker alcohol intake: never substance use type: does not use caffeine: No what type of physical activity do you participate in: other details: PT frequency: 1-2 times per week duration: 30-45 minutes/day seatbelt use: always do you feel safe at home: Yes ROS Const Const: Negative for weakness, fatigue, fever(s) or headache(s) Eyes Eyes: Negative for blind spots, loss of peripheral vision or transient loss of vision ENT ENT: Negative for headache(s), Negative for dizziness, Negative for tinnitus, Negative for Nosebleed/epistaxis Cardio Chest Pain: No Palpitations: Positive for No Edema: None Muscle aches with walking: None Resp Respiratory: Negative for SOB with activity, SOB at rest or SOB orthopnea\SOB lying down GI GI: Negative nausea, vomiting, heartburn or vomiting blood/hematemesis : Negative for hematuria Musc Musc: Negative for muscle aches/ myalgia Neuro Neuro: Negative for weakness, Negative for headache(s), Negative for dizziness, Negative for near syncope, Negative for syncope, Negative for lightheadedness Randal Hematologic/Lymphatic: Negative for easy bleeding Endo Endo: Negative for fatigue Cardiology Exam Const Appearance: cooperative, no acute distress and well developed Orientation: alert, awake and oriented x3 Head Head: normocephalic and atraumatic Mouth: moist mucous membranes Eyes General: appearance normal, both eyes and all related structures Conjunctivae: conjunctivae normal Pupils: PERRL EOM: EOM intact bilaterally Neck Neck: normal visual inspection, no lymphadenopathy and no JVD Carotids: Negative bruit Neck Mass: Negative Neck mass Chest Chest inspection: normal inspection of the chest, symmetric chest movement and midline sternotomy incision Auscultation: Bilateral: Clear to Auscultation Cardio Palpation: normal PMI Rate: regular rate Rhythm: regular rhythm Heart sounds: S1 normal and S2 normal; negative rub, gallop or murmur GI GI: normal to inspection, soft, no hepatosplenomegaly and bowel sounds present; negative tender Neuro General: alert, awake, oriented x3, CN's II-XI intact bilaterally and moves all extremities Extremities Pulses: Normal: Right Posterior Tibial Pulse, Left Posterior Tibial Pulse, Right Radial Pulse, Left Radial Pulse Lower Extremity Edema: None: Bilateral Psych Psychological: normal affect Assessment AND Plan 1. CAD (coronary artery disease) I25.810 CABG LAD to WOLF, SVG to RCA, SVG to lateral and ramus branches of CFX 06/19 Plan - YUSRA Montes De Oca Stable, from a cardiac standpoint patient does not have any symptoms of angina. We recommend that they continue with current aggressive medical management and risk factor modification. 2. Dyslipidemia E78.5 Plan - YUSRA Montes De Oca Recent lipid profile demonstrates total cholesterol 184, HDL 56, LDL 99. We will continue to monitor through routine labs. 3. Transient cerebral ischemia, unspecified type G45.9 Plan - YUSRA Montes De Oca Patient has not had any further recurrence. We will continue with current medications. Plan Detail Other Medications New: Additional Comments - YUSRA Montes De Oca The above patient was discussed with Dr. Flynn, he agrees with plan of care. Thank you for allowing us to participate in patient's plan of care, if you have any questions please do not hesitate to call. This note was generated using a voice recognition system and there may be incorrect words, spelling or punctuation errors that were not noted when reviewing the office note prior to saving. Follow Up 9 Months (PFM) Coding Level of Care Code Off vis,est,level 3 Diagnoses CAD (coronary artery disease) I25.810 Associated angina: angina presence unspecified Coronary Disease-Associated Artery/Lesion type: bypass graft [place] vs. transplanted heart: [place] heart Dyslipidemia E78.5 Transient cerebral ischemia, unspecified type G45.9 Transient cerebral ischemia type: unspecified Coding Level of Care Code Off vis,est,level 3 Diagnoses CAD (coronary artery disease) I25.810 Associated angina: angina presence unspecified Coronary Disease-Associated Artery/Lesion type: bypass graft [place] vs. transplanted heart: [place] heart Dyslipidemia E78.5 Transient cerebral ischemia, unspecified type G45.9 Transient cerebral ischemia type: unspecified 12/13/17 1150 <Electronically signed by Ritika MENG> Date Ritika MENG 12/14/17 1118<Electronically signed by Edgardo Flynn MD> Cosigner Signature: Date (if applicable) Edgardo Flynn MD CC: London Gupta OT GENERAL EVALUATION Observed: 12/01/2017 Status: F Source: [place] 9:25 AM [facility] REPOSITORY [facility] Occupational Therapy Health[address] [place] [address] Fax REHABILITATION SERVICES INITIAL EVALUATION MR#: [id number] Acct: [id number] Name: JADE CHAVIRA Rep #: [id number] : 1940 77 From: Ritika GREY/L, CHT Referring Dr.: VIVEK Crenshaw Status: REG RCR Insurance: MEDICARE PART A B Eval Date: STANDARD LIFE ACCIDENT Patient's Visit Information JADE CHAVIRA is a 77 year old M, referred to Occupational Therapy by JEN IreneC,LONG TERM CARE PHARMACIST.ALBERTO, with a diagnosis of left hand weakness. 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 pt unable to identify objects given to him for stereognosis - In-Hand Manipulation Finger to Palm Translation: Normal - Right, Severe - Left, Unable - Left Palm to Finger Translation: Normal - Right, Unable - Left Shift: Normal - Right, Severe - Left - DASH-Disabilities of Arm, Shoulder AND Hand DASH Sum: 90 - Goals Goal:: pt will demo a increase in left modern dancer to 55# or greater to increase ind. with BADLS and IADSL. Pt will demo a increase in left later/tripod pinch by 4# to increase ind with bathing-dressing and work tasks by d/c Goal:: pt will demo the ability to manipulate fasteners at a PRASANTH level with ad. as needed by d/c Goal:: pt will demo understanding of visual compensation for lack of sensation of left hand for increase ind. with BADLS and IADLS by d/c - Rehabilitation General Assessment: pt demo decreased strenght in LUE due to hx of CVA- pt also demo decrease sensation limiting pts ability to hold onto objects. Therpay will challenge pts strength and ed. pt on visual compensatory raza. when using left hand with BADLS Rehabilitation Potential: Good - Anticipated Interventions Anticipated Interventions: Strengthening, Sensory Retraining, Modalities, Fine Motor Coord/Charles, Neuro Reeducation, Sensory Stimulation, Education re assistive Equipment - Visit Plan Frequency: 1-2x /Week Duration: 4 Weeks General Plan: OT will initiate increase in left UE strengthening to increase pts ind. with BADLS and IADLS- therapy will ed. pt on ad. eq and viusal compensation with BADLS and IADLS. TEXT: Thank you for the opportunity to evaluate your patient. For Medicare and Medicare HMO plans, please review the plan of care and approve it. It will need to be FAXED BACK to us at [phone] for Medicare purposes. Please let me know if there are questions or concerns regarding this plan of care. Physician Signature: Date: <Electronically signed by Ritika GREY/Yahir, CHT> 12/01/17 0925 CC: VIVEK Crenshaw; London Gupta MK Signed For Medicare only, by signing this I certify the plan of care. Physicians Signature Date ALLERGIES ALLERGIES DATE TYPE / CODE NAME / CODE REACTION SEVERITY SOURCE 09/24/2018 Drug hydrocodone Rash Unknown [place] Allergy/416 bitartrate/[id number] [facility] 044656([place] [address] 09/24/2018 Drug oxycodone Hives Unknown [place] Allergy/416 HCl/[id number](RXN Community 592141([facility] ED [facility]) Repository 09/24/2018 Drug Penicillins/U59256 Rash Unknown [place] Allergy/416 0476(RXNORM) [facility] 176333([facility] ED CT) Repository 09/24/2018 Drug Sulfa (Sulfonamide Rash Unknown [place] Allergy/416 Antibiotics)/F0010 Community 441120([facility] 16[facility] Rep[facility] 09/24/2018 Drug glyburide/Y4702280 Diarrhea Unknown [place] Allergy/416 12(RXNORM) Community 339335([facility] ED CT) Repository 09/24/2018 Drug codeine/[id number] Hives Unknown [place] Allergy/416 (RXNORM) Community 950449([facility] ED CT) Repository 09/24/2018 Drug oxycodone/V4531059 Rash Unknown [place] Allergy/416 58(RXNORM) [facility] 922100([facility] ED CT) Repository 09/24/2018 Drug tramadol/[id number] Unknown Unknown [place] Allergy/416 0(RXNORM) Community 289126([facility] ED CT) Repository 09/24/2018 Drug gabapentin/O490966 Rash Unknown [place] Allergy/416 415(RXNORM) Community 448426([facility] ED CT) Repository 09/24/2018 Drug metformin/M1225149 Diarrhea Unknown [place] Allergy/416 34(RXNORM) [facility] 368985([facility] ED CT) Repository ENCOUNTERS ENCOUNTERS ADMIT/DISCHARGE ACCOUNT ADMITTING ENCOUNTER LOCATION SOURCE NUMBER CLASS 10/03/2018 [id number] Ambulatory [place] 9 [facility] ing:LAB Repository 09/24/2018 [id number] Ambulatory BMSBuilding:B [place] 4 [facility] Repository 09/24/2018/ [id number] Ambulatory BMSBuilding:B [place] 8 5 [facility] Repository 02/25/2018/ [id number] Emergency [place] 8 1 [facility] ing:ED Repository 12/20/2017/ [id number] Ambulatory [place] 8 9 [facility] ing:OT Repository 12/20/2017 [id number] Ambulatory [place] 3 [facility] ing:SL Repository 12/13/2017/ [id number] Ambulatory BMSBuilding:B [place] 8 3 [facility] Repository 12/12/2017 [id number] Ambulatory BMSBuilding:B [place] 9 [facility] Repository 12/05/2017 [id number] Ambulatory [place] 8 [facility] ing:SL Repository PAYERS PAYERS ENCOUNTER GUARANTOR PAYER SUBSCRIBER SOURCE 10/03/2018 JADE [id number] Primary JADE D [place] TR Insurance:MEDICARE EBERLYDOB: [address], PART A BPolicy [id number] [place] [address]Ucg: Number: Repository [id number] () Date:2018-10-03 10/03/2018 Secondary JADE D [place] Insurance:STANDARD EBERLYDOB: [facility] LIFE ACCIDENTPolicy [id number] Hospital Number: Repository [id number] Date:0780-62-86[address]X [address]KLLCURT[address] [address]MC: 10/03/2018 Tertiary NOT GIVENUNK [place] Insurance:SELF PAY [facility] Number: Effective Repository Date:2018-10-03 09/24/2018 JADE D [id number] Primary JADE D [place] TR Insurance:MEDICARE EBERLYDOB: [address] [id number] [place] [address]Uad: Number: Repository [id number] (HP) Date:2017-12-13 09/24/2018 Secondary JADE D [place] Insurance:STANDARD EBERLYDOB: [facility] 2084-26-17QUY Hospital Number: Repository [id number] Date:3736-32-81[address], [place] [address]GG: 09/24/2018 Tertiary NOT GIVENUNK [place] Insurance:SELF PAY [facility] Number: Effective Repository Date:2017-12-13 09/24/2018 JADE D [id number] Primary JADE D [place] TR Insurance:MEDICARE EBERLYDOB: [address] [id number] [place] [address]Yyl: Number: Repository [id number] (HP) Date:2018-02-12 09/24/2018 Secondary JADE D [place] Insurance:STANDARD EBERLYDOB: [facility] [id number] Hospital Number: Repository [id number] Date:5873-09-31[address], [place] [address]AI: 09/24/2018 Tertiary NOT GIVENUNK [place] Insurance:SELF PAY [facility] Number: Effective Repository Date:2018-09-24 02/25/2018 JADE D [id number] Primary JADE D [place] TR Insurance:MEDICARE EBERLYDOB: [address] [id number] [place] [address]Kgz: Number: Repository [id number] (HP) Date:2018-02-25 02/25/2018 Secondary JADE D [place] Insurance:STANDARD EBERLYDOB: Community LIFE ACCIDENTPolicy [id number] Hospital Number: Repository [id number] Date:9930-57-76[address], [place] [address]DY: 02/25/2018 Tertiary NOT GIVENUNK [place] Insurance:SELF PAY [facility] Number: Effective Repository Date:2018-02-25 12/20/2017 JADE [place] [id number] Primary JADE D [place] TR Insurance:MEDICARE EBERLYDOB: [address] [id number] [address]Tel: Number: Repository [id number] (HP) Date:2003-04-06 12/20/2017 Secondary JADE D [place] Insurance:STANDARD EBERLYDOB: [facility] [id number] Hospital Number: Repository [id number] Date:7574-01-90QV [address], [place] [address]LN: 12/20/2017 Tertiary NOT GIVENUNK [place] Insurance:SELF PAY [facility] Number: Effective Repository Date:2017-11-24 12/20/2017 JADE D [id number] Primary JADE D [place] TR Insurance:MEDICARE EBERLYDOB: [address] [id number] [facility] [address]Spc: Number: Repository [id number] (HP) Date:2017-12-19 12/20/2017 Secondary JADE D [place] Insurance:STANDARD EBERLYDOB: [facility] [id number] Hospital Number: Repository [id number] Date:8362-82-60FS [address]KK[place], [place] [address]PS: 12/20/2017 Tertiary NOT GIVENUNK [place] Insurance:SELF PAY [facility] Number: Effective Repository Date:2017-12-19 12/13/2017 JADE D [id number] Primary JADE D [place] TR Insurance:MEDICARE EBERLYDOB: [address] [id number] Mexico Rehabilitation Center [address]Bic: Number: Repository [id number] (HP) Date:2017-10-10 12/13/2017 Secondary JADE D [place] Insurance:STANDARD EBERLYDOB: [facility] [id number] Hospital Number: Repository [id number] Date:6816-98-73[address]LHGCURTIS PÉREZ [address]EJ: 12/13/2017 Tertiary NOT GIVENUNK [place] Insurance:SELF PAY [facility] Number: Effective Repository Date:2017-10-10 12/12/2017 Jade D [id number] Primary Jade D [place] Tr Insurance:MEDICARE EberlyDOB: [address] PART A [facility] [id number] Mexico Rehabilitation Center [address]Ese: Number: Repository [id number] (HP) Date:2017-12-12 12/12/2017 Secondary Jade D [place] Insurance:STANDARD EberlyDOB: [facility] [id number] Hospital Number: Repository [id number] Date:3933-92-19[address] [address]LR: 12/12/2017 Tertiary NOT GIVENUNK [place] Insurance:SELF PAY [facility] Number: Effective Repository Date:2017-12-12 12/05/2017 Jade D [id number] Primary Jade D [place] Tr Insurance:MEDICARE EberlyDOB: [address] PART A [facility] [id number] [place] [address]Ntb: Number: Repository [id number] (HP) Date:2017-11-27 12/05/2017 Secondary Jade D [place] Insurance:STANDARD EberlyDOB: [facility] [id number] Hospital Number: Repository [id number] Date:3462-03-47OD [address]USR CURTIS LOPEZ [address]XL: 12/05/2017 Tertiary NOT GIVENUNK [place] Insurance:SELF PAY [facility] Number: Effective Repository Date:2017-11-27
== END ==
PROVIDERS: Family Provider Family Medicine; PCP Family Medicine; Referring Provider Physician Assistant Medical; Visit Provider Physician Assistant Medical
DX: I10 Essential (primary) hypertension (principal); I25.810 Atherosclerosis of coronary artery bypass graft(s) without angina pectoris; E78.5 Hyperlipidemia, unspecified; G45.9 Transient cerebral ischemic attack, unspecified
CPT/HCPCS: 36415; 80053; 80061; 82248; 85025

== ENCOUNTER → 2019-01-10 10:52 | Outpatient (CLI) | payer MEDICARE, OTHER, SELFPAY ==
[2019-01-10 10:47] VITALS: BMI 21.9
--- NOTE | 2019-01-10 10:54 | RAD_ITS ---
STUDY: X-RAY CHEST REASON FOR EXAM: Male, 78 years old. Several month history of wheezing. TECHNIQUE: PA and lateral views of the chest. COMPARISON: Comparison is made with prior study dated March 28, 2016. FINDINGS: There is elevation of the right hemidiaphragm. The lungs are clear and expanded. There is no demonstrated pleural abnormality. Sternal cerclage wires and vascular clips are present from a prior sternotomy and coronary artery bypass graft procedure (CABG). Normal mediastinum and wilber. Normal visualized pulmonary arteries. There is atherosclerotic calcification of the aortic arch with tortuosity. There are degenerative changes of the visualized thoracic spine. Normal visualized ribs, clavicles, and shoulders. There is no demonstrated abnormality of the visualized soft tissue structures of the upper abdomen. RAD/Chest PA and Lateral IMPRESSION: Stable elevation of the right hemidiaphragm. No acute abnormality is seen. Electronically Signed: Mil Munoz, at 11:29 EST , Service support ,
== END ==
PROVIDERS: Family Provider Family Medicine; PCP Family Medicine; Referring Provider Physician Assistant; Visit Provider Physician Assistant
DX: R05 Cough (principal)
CPT/HCPCS: 71046

== ENCOUNTER 2019-03-18 16:53 | Observation (INO) | payer MEDICARE, OTHER, SELFPAY ==
[2019-01-10 10:47] VITALS: BMI 21.9
[2019-03-18] VITALS (11 sets, daily range): BP systolic 155–178; BP diastolic 81–106; PULSE 70–82; RESP 14–24; TEMP 36.4–36.5; O2SAT 96–98; BMI 21.4; BMI 22.4
--- NOTE | 2019-03-18 17:09 | ED.RN ---
lt sided deficits from previous stroke.
--- NOTE | 2019-03-18 17:34 | RAD_ITS ---
STUDY: X-RAY CHEST REASON FOR EXAM: Male, 78 years old. There are no symptoms. TECHNIQUE: Single AP portable view of the chest. COMPARISON: PA and lateral chest x-ray January 10, 2019. FINDINGS: Minor elevation of the right diaphragm unchanged. Small calcified granuloma versus pulmonary vessel seen end-on again noted in the inferolateral right base. No new consolidating infiltrate. The lungs are clear and expanded. There is no demonstrated pleural abnormality. Normal size heart. Sternal cerclage wires and vascular clips are present from a prior sternotomy and coronary artery bypass graft procedure (CABG). Normal mediastinum and wilber. Normal visualized pulmonary arteries. There is stable minor atherosclerotic calcification of the aortic arch. There are stable degenerative changes of the visualized thoracic spine. 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 Surgical clips of prior cholecystectomy again project in the right upper quadrant of the abdomen. RAD/Chest 1 View IMPRESSION: Stable x-ray examination of the chest since March 2016, as described. Electronically Signed: Kem Bland MD at 18:07 EDT , Service support ,
--- NOTE | 2019-03-18 17:34 | CT_ITS ---
STUDY: CT BRAIN WITHOUT CONTRAST REASON FOR EXAM: Male, 78 years old. Fall one week ago. Now with dizziness. RADIATION DOSAGE (If Supplied By Facility): CTDIvol = ( 44.99 ) mGy, DLP = ( 779.24 ) mGycm TECHNIQUE: Transaxial CT imaging of the brain was performed without administration of intravenous contrast material. Individualized dose optimization techniques were used for this CT. COMPARISON: Noncontrast CT brain April 17, 2017. FINDINGS: Normal soft tissue structures. Normal calvarium. There are atherosclerotic calcifications of the cavernous segments of the bilateral internal carotid arteries. There is mild cerebral atrophy with widening of the extra-axial spaces and ventricular dilatation. There are areas of decreased attenuation within the white matter tracts of the supratentorial brain, more conspicuous than on previous exam, consistent with microvascular disease changes. Old lacunar infarct now present in the right periventricular white matter extending into the neck of the caudate nucleus and upper margin of the right lentiform nucleus. Normal left basal ganglia and bilateral thalami. Normal brainstem. Stable old infarct in the posterior left cerebral hemisphere. There is no intracranial hemorrhage. There are no findings of an acute ischemic infarction. Normal visualized paranasal sinuses. CT/Brain/Head without Contrast IMPRESSION: 1. Chronic involutional changes of the brain, with progression of chronic microvascular ischemic change since previous study. 2. Additional small zone of chronic ischemic change now present, extending from the neck of the right caudate nucleus through the supraventricular white matter into the upper right lentiform nucleus. 3. Stable old infarct in the posterior left cerebral hemisphere. Electronically Signed: Kem Bland MD at 18:45 EDT , Service support ,
--- NOTE | 2019-03-18 17:34 | EKG12_ITS ---
Test Reason : NEURO Blood Pressure : / mmHG Vent. Rate : 078 BPM Atrial Rate : 078 BPM P-R Int : 184 ms QRS Dur : 124 ms QT Int : 384 ms P-R-T Axes : 050 -27 045 degrees QTc Int : 437 ms Sinus rhythm with marked sinus arrhythmia Non-specific intra-ventricular conduction delay Borderline ECG Confirmed by HILARY SOL, LUIS ARMANDO ([id number]), greeting card editor LIZ ANTON ([id number]) on 03/20/2019 1:34:37 PM Referred By: Raymundo Farrell Confirmed By:LUIS ARMANDO RICHARD MD
--- NOTE | 2019-03-18 17:35 | ED.VISSUMM ---
- ER Visit Summary Date of Service: 03/18/19 Chief Complaint: Stroke-like symptoms History of Present Illness: The patient is a 78 M presenting with strokelike symptoms. Patient states he had a stroke 3 years ago and has had similar complaints since yesterday. He states when he tries to walk he feels off balance. He states he is falling to the left side. He is having trouble getting words out. He fell a week ago. He was not seen after the fall. He is on Plavix. Denies chest pain or shortness of breath. Denies other complaints. Physical Examination: Vitals are stable. Patient is afebrile. Alert no acute distress. HEENT exam ecchymosis mid forehead Neck is supple , nontender Lungs are clear and equal bilaterally. Heart is regular rate and rhythm. Abdomen is soft nontender nondistended. Extremities are unremarkable. Skin is warm and dry. No focal neurologic deficit. NIH 0 Remainder of exam is unremarkable. Emergency Department Course and Treatment: CBC, chemistries unremarkable other than glucose 170, BUN 30. Troponin is negative. Chest x-ray shows no acute process. CT head shows chronic involutional changes of the brain, with progression of chronic microvascular ischemic change since previous study. Additional small zone of chronic ischemic change now present, extending from the neck of the right caudate nucleus through the supraventricular white matter into the upper right lentiform nucleus. Stable old infarct in the posterior left cerebral hemisphere. Discussed with the hospitalist for admission. Disposition: Admission Impression: Ataxia, expressive aphasia This note was generated with [employer] dictation software. It may contain incorrect words, spelling, and punctuation that were not noted in review of the chart prior to signing ED Disposition - Plan for ED Patient: Referrals: London Gupta MD [Primary Care Provider] -
[2019-03-18 17:51] LABS: Bedside Glucose 173 mg/dL (70-110)
[2019-03-18 18:13] LABS: Absolute Lymphocyte Count 0.78 X10^3/ul (0.83-4.51); Absolute Neutrophil Count 4.2 X10^3/uL (2.0-7.7); Basophil# 0.02 X10^3/uL; Basophil% 0.4 % (0-1); Eosinophil# 0.09 X10^3/uL; Eosinophils% 1.7 % (0-5); Hemoglobin 13.1 g/dl (13.0-16.5); Lymphocyte # 0.78 X10^3/ul (4.0); Lymphocyte % 14.4 % (19-41); Mean Corp Hgb Conc 33.6 g/gl (32-36); Mean Corpuscular Hgb 29.4 pg (27.0-32.0); Mean Corpuscular Volume 87.6 fL (80-94); Mean Platelet Vol. 9.6 fl (6.2-12.0); Monocyte# 0.31 X10^3/uL; Monocyte% 5.7 % (0-10); Neutrophil # 4.21 X10^3/uL (2.7-7.7); Neutrophil % 77.4 % (47-70); POSITIVE COUNT NO; POSITIVE DIFFERENTIAL NO; POSITIVE MORPHOLOGY NO; Platelet Count 211 K/mm3 (150-450); RBC Distribution Width CV 13.3 % (11.6-14.6); RBC Distribution Width SD 42.7 fl (35.1-43.9); Red Blood Count 4.45 M/mm3 (4.6-6.2); White Blood Count 5.4 K/mm3 (4.4-11.0)
[2019-03-18 18:35] LABS: Anion Gap 3 (5-15); BUN 30 mg/dL (7-18); BUN/Creat Ratio 26.8 RATIO (10-20); Calcium,Total 8.8 mg/dL (8.5-10.1); Chloride 107 mmol/L (98-107); Creatinine, Serum 1.12 mg/dL (0.70-1.30); EST Glomerular Filtration Rate 67 mL/min (>60); Est Glom Filt Rate - Afr Amer 81 mL/min (>60); Estimated Creatinine Clearance 48.94 ml/min; Glucose 170 mg/dL (74-106); Potassium 4.2 mmol/L (3.5-5.1); Sodium Level 140 mmol/L (136-145)
[2019-03-18 18:42] LABS: Prothrombin Time (Protime)PT. 13.4 SECONDS (11.7-14.9)
[2019-03-18 18:43] LABS: Partial Thromboplast Time 28.1 Seconds (24.1-36.2)
--- NOTE | 2019-03-18 18:44 | ED.RN ---
three zero nih's, ok to d/c per .
--- NOTE | 2019-03-18 20:03 | HP.PCM_ITS ---
Problem List (1) Stroke-like symptoms Status: Acute History of Present Illness Date of Admission: 03/18/19 Chief Complaint: IMBALANCE AND WORD FINDING DIFFICULTY The patient is a 78 year old M with a significant history of CAD s/p CABG; HTN; DM; CVA and restless leg syndrome who presents with word finding difficulty; and imbalance of his feet. His symptoms started a day before presentation. Also per his family he is having difficulty in writing. Per patient his symptoms is reminiscent of a stroke he had 3 years ago. Past Medical History Past Medical History (Chronic Problems): Chronic Problems (Last Reviewed 03/18/19 @ 20:41 by Raymundo Farrell MD) Presence of aortocoronary bypass graft (Chronic) CABG LAD to WOLF, SVG to RCA, SVG to lateral and ramus branches of CFX 8/14 Abnormal result of cardiovascular function study (Chronic) Stress test Premature ventricular contractions (Chronic) Encounter for long-term (current) use of other medications (Chronic) TIA (transient ischemic attack) (Chronic) Osteoporosis (Chronic) Hip pain, chronic (Chronic) DM type 2 (diabetes mellitus, type 2) (Chronic) CAD (coronary artery disease) (Chronic) CABG LAD to WOLF, SVG to RCA, SVG to lateral and ramus branches of CFX 8/14 S/P CABG x 4 (Chronic) HTN (hypertension) (Chronic) PMR (polymyalgia rheumatica) (Chronic) CVA (cerebral vascular accident) (Chronic) January of 2016 with extension in March of 2016 Rib fractures (Chronic) anterior left 4th and 5th ribs Left acetabular fracture (Chronic) Dyslipidemia (Chronic) Normochromic normocytic anemia (Chronic) Steroid dependent (Chronic) Medical History: Medical History (Last Reviewed 03/18/19 @ 20:41 by Raymundo Farrell MD) Premature ventricular contractions (Chronic) I49.3 TIA (transient ischemic attack) (Chronic) G45.9 DM type 2 (diabetes mellitus, type 2) (Chronic) E11.9 CAD (coronary artery disease) (Chronic) I25.10 CABG LAD to WOLF, SVG to RCA, SVG to lateral and ramus branches of CFX 8/14 CVA (cerebral vascular accident) (Chronic) I63.9 January of 2016 with extension in March of 2016 Dyslipidemia (Chronic) E78.5 Difficulty balancing R29.818 Fatigue R53.83 Heart disease I51.9 SOB (shortness of breath) R06.02 Shoulder pain M25.519 Allergies codeine Allergy (Verified 03/18/19 16:56) Hives gabapentin Allergy (Verified 03/18/19 16:56) Rash hydrocodone bitartrate [From Vicodin] Allergy (Verified 03/18/19 16:56) Rash oxycodone [From OxyContin] Allergy (Verified 03/18/19 16:56) Rash oxycodone HCl [From Percocet] Allergy (Verified 03/18/19 16:56) Hives Penicillins [PCN] Allergy (Verified 03/18/19 16:56) Rash Sulfa (Sulfonamide Antibiotics) Allergy (Verified 03/18/19 16:56) Rash tramadol Allergy (Verified 03/18/19 16:56) Unknown glyburide Adverse Reaction (Verified 03/18/19 16:56) Diarrhea metformin Adverse Reaction (Verified 03/18/19 16:56) Diarrhea Home Medications: Ambulatory Orders Medication Instructions Recorded Insulin Glargine [Lantus SoloStar 7 units SC DAILY 09/28/16 Pen] alfalfa tablet 1 tab PO BID 11/29/17 Calcium Carbonate/Vitamin D3 1 tab PO BID MDD bones 03/18/19 [Calcium 600-Vit D3 200 Tablet] Carvedilol [Coreg] 3.125 mg PO BID 03/18/19 Clopidogrel Bisulfate [Plavix] 75 mg PO DAILY 03/18/19 Multivitamin [Daily Татьяна] 1 tab PO DAILY 03/18/19 Pramipexole Di-HCl [Mirapex] 1.5 mg PO QHS 03/18/19 Prednisone 5 mg PO DAILY 03/18/19 Surgical History: Surgical History (Last Reviewed 03/18/19 @ 20:41 by Raymundo Farrell MD) Presence of aortocoronary bypass graft (Chronic) Z95.1 CABG LAD to WOLF, SVG to RCA, SVG to lateral and ramus branches of CFX 06/19 Surgical History: cholecystectomy, coronary bypass surgery, total hip arthroplasty - left x 2, - - right partial lung removal Psychiatric History: No pertinent psych hx Lives: Spouse/ Significant Other Smoking Status: Never smoker Alcohol: None - *Family History Maternal Family History: Family History (Last Updated 03/18/19 @ 20:41 by Raymundo Farrell MD) Father No problems noted. Sister Leukemia Paternal Family History: Family History (Last Updated 03/18/19 @ 20:41 by Raymundo Farrell MD) Father No problems noted. Sister Leukemia Review of Systems Constitutional: Reports: Fatigue. Denies: Chills, Fever, Weight Change HEENT: Denies: Head Aches, Sinus Congestion, Sinus Drainage Cardiovascular: Denies: Chest Pain, Palpitations Respiratory: Denies: Cough, Shortness of breath at rest, Sputum production Gastrointestinal: Denies: Abdominal Pain, Nausea, Vomiting Genitourinary: Denies: Dysuria Musculoskeletal: Denies: Joint Pain, Joint Tenderness Skin: Denies: Rash, Wounds Neurological: Reports: Change in Speech - Now resolved, Incoordination. Denies: Focal weakness, Numbness, Tingling Psychiatric: Denies: Anxiety, Depression, Homicidal Ideations, Suicidal Ideations Hematologic/ Lymphatic: Denies: Easy Bruising, Easy Bleeding VTE Information - Inpt Only VTE Present on Admission: No VTE Mechan Device Prophylaxis: None VTE Pharm Prophylaxis ordered?: Yes Patient Problems: Active and Suspected Problems (Last Reviewed 03/18/19 @ 20:41 by Raymundo Farrell MD) Stroke-like symptoms (Acute) - Physical Exam General: Alert, Oriented x3, Cooperative HEENT: Atraumatic, PERRLA, EOMI, Normocephalic Neck: Supple, No JVD, Negative Carotid Bruits Lungs: Clear to auscultation, Normal air movement Cardiovascular: Regular rate, No murmurs Abdomen: Bowel Sounds Present, Soft, Non Tender Extremities: No edema, Capillary Refill Less than 3 Seconds Skin: No rashes, No breakdown Musculoskeletal: No Tenderness to Palpation of Joints or Extremities Neurological: Cranial nerves II-XII grossly intact, Motor Exam 5/5 strength t hroughout, - - No dysmetria Psych/Mental Status: Normal Affect, Appropriate Vital Signs Temp Pulse Resp BP Pulse Ox 97.7 F L 81 22 H 163/97 H 98 03/18/19 16:54 03/18/19 18:30 03/18/19 18:30 03/18/19 18:04 03/18/19 19:04 Oxygen Delivery Method Room Air Weight: 65.771 kg Body Mass Index (BMI) 21.4 Finger Stick Blood Glucose 173 Laboratory Tests Past 24 Hrs 03/18/19 03/18/19 03/18/19 17:58 17:58 17:58 WBC 5.4 RBC 4.45 L Hgb 13.1 Hct 39.0 L MCV 87.6 MCH 29.4 MCHC 33.6 RDW 13.3 RDW Differential 42.7 Plt Count 211 MPV 9.6 Immature Gran % (Auto) 0.400 Neut % (Auto) 77.4 H Lymph % (Auto) 14.4 L [place] % (Auto) 5.7 Eos % (Auto) 1.7 Baso % (Auto) 0.4 Absolute Neuts (auto) 4.2 Absolute Lymphs (auto) 0.78 L Total Counted Not Reportable PT 13.4 INR 1.0 APTT 28.1 Sodium 140 Potassium 4.2 Chloride 107 Carbon Dioxide 30.0 Anion Gap 3 L BUN 30 H Creatinine 1.12 Estim Creat Clear Calc 48.94 Est GFR (MDRD) Af Amer 81 Est GFR (MDRD) Non-Af 67 BUN/Creatinine Ratio 26.8 H Glucose 170 H Calcium 8.8 Troponin I < 0.015 POC Glucose 03/18/19 17:47 POC Glucose 173 H Assessment/Plan All Active Problems (Last Reviewed 03/18/19 @ 20:41 by Raymundo Farrell MD) Stroke-like symptoms (Acute) Bronchitis (Acute) Nausea & vomiting (Resolved) numbness on left side of neck (Resolved) The patient is a 78 year old M with a significant history of CAD s/p CABG; HTN; DM; CVA and restless leg syndrome who presents with word finding difficulty; and imbalance of his feet and difficulty writing. Stroke-like symptoms NINDS NIH Scale was 0 CT of the head showed chronic involutional changes of the brain; with additional small zone of chronic ischemic change now presents. Also with stable old infarcts in posterior left cerebral hemisphere. -Check Hba1c, Lipid level Physical therapy, occupational therapy to work with patient. N.p.o. until beds ortiz swallow eval. Patient on Plavix but not on aspirin. He stated that he was told not to be taking aspirin. We will start patient on aspirin for now since on Plavix he has continued to have ischemic changes. Not on statin. Will start patient on Lipitor. 40mg daily. Patient is a known patient of Dr. Sanders will consult Dr. Sanders, neurologist. Patient is outside window of permissive hypertension. MRI/MRAM of head; brain; and neck. Echocardiogram ordered. Diabetes mellitus On presentation his blood glucose was within goal. Continue home Lantus. Accu-Chek q. before meals at bedtime. Hypertension On presentation his blood pressure was not within goal. Coreg continued Trend blood pressure and adjust blood pressure medication PMR Low-dose prednisone continued. DVT prophylaxis Subcutaneous heparin. Code Visit OBSV E&M: 19038 Initial observation care L3
--- NOTE | 2019-03-18 20:55 | ECHOCS_ITS ---
Reason For Study: TIA/CVA Procedure This was a 2D Doppler, Color Flow transthoracic echocardiogram. The study was technically difficult. Contrast injection was performed. Exam performed portable in patient room. Left Ventricle Normal LV size. Sigmoid septum. Segmental dysfunction with preserved ejection fraction (see wall motion). The estimated ejection fraction is 60 %. No evidence for diastolic dysfunction. Infero- Basal: Akinetic. Mid-Inferior: Hypokinetic. Mid-inferoseptal : Hypokinetic. Mid-anteroseptal : Hypokinetic. Right Ventricle Normal RV size. Normal systolic function. Atria Normal left atrium. Normal right atrium. No doppler evidence for ASD. Mitral Valve There is no mitral annular calcification. Anterior leaflet diffuse mitral valve thickening. Trivial mitral valve insufficiency. Tricuspid Valve Normal tricuspid valve. Trivial tricuspid valve insufficiency. Right ventricular systolic pressure estimated to be 21 mmHg. Aortic Valve Trisinus/trileaflet aortic valve. Mild focal aortic valve thickening. Pulmonic Valve The pulmonic valve is not well visualized. Trivial pulmonic valve insufficiency. Great Vessels Normal sized aortic root. Pericardium/Pleural No pericardial effusion. Medication Diluted definity 3ml given slow IV push to enhance endocardial definition. MMode/2D Measurements & Calculations LVIDd: 4.2 cm IVSd: 1.2 cm Ao root diam: 3.1 cm LVIDs: 3.0 cm LVPWd: 1.0 cm RVDd: 4.1 cm FS: 28.1 % LAV(MOD-bp): 31.6 ml LVAd ap4: 35.3 cm2 SV(MOD-sp4): 63.9 ml LAV(MOD-bp) Indexed: 17.5 ml/m2 EDV(MOD-sp4): 116.2 ml LAV(MOD-sp2): 47.3 ml EDV(sp4-el): 127.2 ml LAV(MOD-sp4): 20.6 ml LVAs ap4: 21.6 cm2 ESV(MOD-sp4): 52.3 ml ESV(sp4-el): 54.5 ml EF(MOD-sp4): 55.0 % EF(sp4-el): 57.1 % SV(sp4-el): 72.7 ml LA A4 area: 10.8 cm2 LA dimension(2D): 3.2 cm RA A4 area: 10.0 cm2 Time Measurements MV dec time: 0.16 sec Doppler Measurements & Calculations MV E max carlos alberto: 49.5 cm/sec Lat Peak E' Carlos Alberto: 14.7 cm/sec Med Peak E' Carlos Alberto: 6.0 cm/sec MV A max carlos alberto: 69.5 cm/sec E/E' lat: 3.4 E/E' med: 8.2 MV E/A: 0.71 Ao V2 max: 124.5 cm/sec LV V1 max: 79.6 cm/sec PA V2 max: 87.9 cm/sec Ao max P.2 mmHg LV V1 max P.5 mmHg PI dec slope: 114.4 cm/sec2 TR max carlos alberto: 214.0 cm/sec TR max P.3 mmHg Interpretation Summary The study was technically difficult. Contrast injection was performed. Segmental dysfunction with preserved ejection fraction (see wall motion). The estimated ejection fraction is 60 %. Sigmoid septum. Anterior leaflet diffuse mitral valve thickening. Trivial mitral valve insufficiency. Trivial tricuspid valve insufficiency. Mild focal aortic valve thickening. Trivial pulmonic valve insufficiency. Right ventricular systolic pressure estimated to be 21 mmHg. No evidence for diastolic dysfunction. Ordering Physician: Raymundo Farrell Referring Physician: DAX CASTAÑEDA Performed By: Erinn Vásquez RDCS
[2019-03-18 21:25] LABS: Hemoglobin A1c 7.2 % (4.2-6.3)
[2019-03-18] MEDS: Carvedilol 3.125 MG TABLET PO (22:03)
[2019-03-18] MEDS: Atorvastatin Calcium 40 MG Tablet PO (22:03)
[2019-03-18] MEDS: Pramipexole Di-HCl 0.5 MG Tablet 1.5 MG PO (22:03)
[2019-03-18] MEDS: Heparin Injection (Vial) 5,000 UNIT/ML VIAL 5000 UNIT SC (22:03)
[2019-03-18 22:15] LABS: Bedside Glucose 112 mg/dL (70-110)
[2019-03-19] VITALS (10 sets, daily range): BP systolic 124–168; BP diastolic 74–90; PULSE 65–78; RESP 16; TEMP 36.3–36.7; O2SAT 93–98; BMI 22.4
[2019-03-19 06:58] LABS: Cholesterol 159 mg/dL (200); High Density Lipoprotein 48 mg/dL; Triglycerides 84 mg/dL; Very Low Density Lipoprotein 17 mg/dL (5-40)
[2019-03-19 07:05] LABS: Bedside Glucose 103 mg/dL (70-110)
--- NOTE | 2019-03-19 08:30 | MRI_ITS ---
STUDY: MRA OF THE HEAD WITHOUT CONTRAST REASON FOR EXAM: Male, 78 years old. CVA TECHNIQUE: 3-D vigl-sk-cbrawb (TOF) imaging was performed with MIPs. The study was performed unenhanced. COMPARISON: MRA 01/05/2016. FINDINGS: Normal bilateral petrous carotid arteries. Normal right cavernous carotid artery with a normal supraclinoid bifurcation. Normal left cavernous carotid artery with a normal supraclinoid bifurcation. Normal right A1 segments of the anterior cerebral artery. Normal left A1 segments of the anterior cerebral artery. Normal intact anterior communicating artery (ACOM). Normal bilateral A2 segments of the anterior cerebral arteries. Normal right M1 and M2 segments of the middle cerebral arteries, with a normal M1 bifurcation. There is focal high-grade stenosis of the left M1 segment with reconstitution of the left M1 bifurcation, M2 and M3 segments, though these appear somewhat diminutive in size/demonstrating slower flow when compared to the right side. 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 Normal right posterior communicating artery (PCOM). Normal left posterior communicating artery (PCOM). Normal bilateral vertebral arteries. Normal basilar artery with a normal basilar bifurcation. The visualized bilateral superior cerebellar (SCA) arteries are normal. Normal bilateral P1, P2 and visualized P3 segments of the posterior cerebral arteries. There is no demonstrated aneurysm of the [place] of [place]. There is no major vessel occlusion or hemodynamically significant stenosis. There is no demonstrated abnormality of the visualized brain. 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 These findings are new since 2016. 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 Electronically Signed: Maru Mendoza, at 10:04 EDT Tel , Service support ,
--- NOTE | 2019-03-19 08:30 | MRI_ITS ---
STUDY: MRA NECK WITH AND WITHOUT CONTRAST REASON FOR EXAM: Male, 78 years old. CVA TECHNIQUE: 3-D cutd-or-gtvgmh (TOF) imaging was performed in an 1.5 T MRI scanner. 13 IV Dotarem was administered for the contrast enhanced images. COMPARISON: None. FINDINGS: RIGHT CAROTID ARTERIES: Normal right common carotid artery (CCA). Normal right common carotid bulb. Normal origin of the right internal carotid (ICA) artery without a hemodynamically significant stenosis. There is tortuous elongation of the cervical portion of the right internal carotid artery without stenosis. Normal origin of the right external carotid artery (ECA). LEFT CAROTID ARTERIES: Normal left common carotid artery (CCA). Normal left common carotid bulb. Normal origin of the left internal carotid (ICA) artery without a hemodynamically significant stenosis. Normal visualized cervical portion of the left internal carotid artery. Normal origin of the left external carotid artery (ECA). VERTEBRAL ARTERIES: Normal antegrade flow within the bilateral vertebral artery without a hemodynamically significant stenosis. The right vertebral artery is dominant. MRI/MRA Neck WITH and W/O Contrast IMPRESSION: Normal bilateral cervical carotid and vertebral arteries. Electronically Signed: Maru Mendoza, at 10:15 EDT Tel , Service support ,
--- NOTE | 2019-03-19 08:30 | MRI_ITS ---
We are attempting to reach an attending provider to discuss findings. An addendum with communication details will be sent when the communication is complete. STUDY: MRI BRAIN WITHOUT CONTRAST REASON FOR EXAM: Male, 78 years old. CVA TECHNIQUE: Standardized multiplanar fat and water weighted pulse sequences were obtained. COMPARISON: CT head 03/18/2019 and brain MRI 03/29/2016. FINDINGS: There is a 2.8 x 0.7 cm region of restricted diffusion in the left frontoparietal lobe periventricular white matter corresponding to the left MCA vascular territory. There are additional punctate foci of restricted diffusion in the left parietal lobe periventricular white matter and the left internal capsule anterior limb. No intracranial hemorrhage. There is mild cerebral atrophy with widening of the extra-axial spaces and ventricular dilatation. There are multiple white matter hyperintensities, distributed throughout the deep white matter tracts of the cerebral hemispheres, consistent with moderate chronic white matter ischemic changes. Again seen is chronic infarct and encephalomalacia of the inferior left cerebellum. Chronic, small right basal ganglia lacunar infarcts. Normal bilateral basal ganglia. Normal thalami. There is no extra-axial fluid accumulation. Normal flow voids within the major intracranial circulation suggesting patency by spin echo criteria. Normal sella turcica, pituitary gland, infundibular stalk, optic chiasm and hypothalamus. Normal tectal plate and pineal gland. Normal midbrain, dhara and medulla. Normal cerebellum. Normal basal cisterns. Normal bilateral temporal bones. Normal bilateral internal auditory canals. No demonstrated orbital abnormality, within the constraints of a routine brain study. Normal visualized paranasal sinuses. Normal calvarium and skull base. Normal visualized soft tissue structures. Normal visualized upper cervical spine. MRI/Brain without Contrast IMPRESSION: 2.8 x 0.7 cm acute infarct in the left frontoparietal lobe periventricular white matter corresponding to the left MCA vascular territory. There are additional punctate foci of acute infarct in the left parietal lobe periventricular white matter and the left internal capsule anterior limb. No intracranial hemorrhage. Stable chronic findings described above. Electronically Signed: Maru Mendoza, at 9:49 EDT Tel , Service support ,
--- NOTE | 2019-03-19 10:22 | PCM.CONS.GEN ---
Reason for Consult Date of Consultation: 03/19/19 Reason for Consultation: cva History of Present Illness: The patient is a 78 year old M admitted as below. at bedside reports he has had some abnormal walking and confusion since tues, one week ago. also tired. fell off ladder several days prior to symptom onset, but was normal for several days. takes plavix per admit note:The patient is a 78 year old M with a significant history of CAD s/p CABG; HTN; DM; CVA and restless leg syndrome who presents with word finding difficulty; and imbalance of his feet. His symptoms started a day before presentation. Also per his family he is having difficulty in writing. Per patient his symptoms is reminiscent of a stroke he had 3 years ago Past Medical History Past Medical History (Chronic Problems): Chronic Problems (Last Reviewed 03/18/19 @ 20:41 by Raymundo Farrell MD) Presence of aortocoronary bypass graft (Chronic) CABG LAD to WOLF, SVG to RCA, SVG to lateral and ramus branches of CFX 06/19 Abnormal result of cardiovascular function study (Chronic) Stress test Premature ventricular contractions (Chronic) Encounter for long-term (current) use of other medications (Chronic) TIA (transient ischemic attack) (Chronic) Osteoporosis (Chronic) Hip pain, chronic (Chronic) DM type 2 (diabetes mellitus, type 2) (Chronic) CAD (coronary artery disease) (Chronic) CABG LAD to WOLF, SVG to RCA, SVG to lateral and ramus branches of CFX 06/19 S/P CABG x 4 (Chronic) HTN (hypertension) (Chronic) PMR (polymyalgia rheumatica) (Chronic) CVA (cerebral vascular accident) (Chronic) January of 2016 with extension in March of 2016 Rib fractures (Chronic) anterior left 4th and 5th ribs Left acetabular fracture (Chronic) Dyslipidemia (Chronic) Normochromic normocytic anemia (Chronic) Steroid dependent (Chronic) Medical History: Medical History (Last Reviewed 03/18/19 @ 20:41 by Raymundo Farrell MD) Premature ventricular contractions (Chronic) I49.3 TIA (transient ischemic attack) (Chronic) G45.9 DM type 2 (diabetes mellitus, type 2) (Chronic) E11.9 CAD (coronary artery disease) (Chronic) I25.10 CABG LAD to WOLF, SVG to RCA, SVG to lateral and ramus branches of CFX 06/19 CVA (cerebral vascular accident) (Chronic) I63.9 January of 2016 with extension in March of 2016 Dyslipidemia (Chronic) E78.5 Difficulty balancing R29.818 Fatigue R53.83 Heart disease I51.9 SOB (shortness of breath) R06.02 Shoulder pain M25.519 Allergies codeine Allergy (Verified 03/18/19 16:56) Hives gabapentin Allergy (Verified 03/18/19 16:56) Rash hydrocodone bitartrate [From Vicodin] Allergy (Verified 03/18/19 16:56) Rash oxycodone [From OxyContin] Allergy (Verified 03/18/19 16:56) Rash oxycodone HCl [From Percocet] Allergy (Verified 03/18/19 16:56) Hives Penicillins [PCN] Allergy (Verified 03/18/19 16:56) Rash Sulfa (Sulfonamide Antibiotics) Allergy (Verified 03/18/19 16:56) Rash tramadol Allergy (Verified 03/18/19 16:56) Unknown glyburide Adverse Reaction (Verified 03/18/19 16:56) Diarrhea metformin Adverse Reaction (Verified 03/18/19 16:56) Diarrhea Home Medications: Ambulatory Orders Medication Instructions Recorded Insulin Glargine [Lantus SoloStar 7 units SC DAILY 09/28/16 Pen] alfalfa tablet 1 tab PO BID 11/29/17 Calcium Carbonate/Vitamin D3 1 tab PO BID MDD bones 03/18/19 [Calcium 600-Vit D3 200 Tablet] Carvedilol [Coreg] 3.125 mg PO BID 03/18/19 Clopidogrel Bisulfate [Plavix] 75 mg PO DAILY 03/18/19 Multivitamin [Daily Татьяна] 1 tab PO DAILY 03/18/19 Pramipexole Di-HCl [Mirapex] 1.5 mg PO QHS 03/18/19 Prednisone 5 mg PO DAILY 03/18/19 Surgical History: Surgical History (Last Reviewed 03/18/19 @ 20:41 by Raymundo Farrell MD) Presence of aortocoronary bypass graft (Chronic) Z95.1 CABG LAD to WOLF, SVG to RCA, SVG to lateral and ramus branches of CFX 06/19 Surgical History: cholecystectomy, coronary bypass surgery, total hip arthroplasty - left x 2, - - right partial lung removal Psychiatric History: No pertinent psych hx Lives: Spouse/ Significant Other Smoking Status: Never smoker Tobacco Use: Non-smoker Alcohol: None - *Family History Maternal Family History: Family History (Last Reviewed 03/19/19 @ 11:27 by Aime Sanders MD) Father No problems noted. Sister Leukemia History Items: No pertinent history - in her 80's Paternal Family History: Family History (Last Reviewed 03/19/19 @ 11:27 by Aime Sanders MD) Father No problems noted. Sister Leukemia History Items: No pertinent history - age 99 Review of Systems Constitutional: Denies: Chills, Fever, Weight Change HEENT: Denies: Head Aches, Sinus Congestion, Sinus Drainage Cardiovascular: Denies: Chest Pain, Palpitations Respiratory: Denies: Cough, Shortness of breath at rest, Sputum production Gastrointestinal: Denies: Abdominal Pain, Nausea, Vomiting Genitourinary: Denies: Dysuria Musculoskeletal: Denies: Joint Pain, Joint Tenderness Skin: Denies: Rash, Wounds Neurological: Denies: Numbness, Tingling, Focal weakness Psychiatric: Denies: Anxiety, Depression, Homicidal Ideations, Suicidal Ideations Hematologic/ Lymphatic: Denies: Easy Bruising, Easy Bleeding Patient Problems: Active and Suspected Problems (Last Reviewed 03/18/19 @ 20:41 by Raymundo Farrell MD) Stroke-like symptoms (Acute) - Physical Exam General: Alert, Oriented x3, Cooperative HEENT: Atraumatic, PERRLA, EOMI, Normocephalic Neck: Supple, No JVD, Negative Carotid Bruits Lungs: Clear to auscultation, Normal air movement Cardiovascular: Regular rate, No murmurs Abdomen: Bowel Sounds Present, Soft, Non Tender Extremities: No edema, Capillary Refill Less than 3 Seconds Skin: No rashes, No breakdown Musculoskeletal: No Tenderness to Palpation of Joints or Extremities Neurological: Cranial nerves II-XII grossly intact, - - mild aphasia, and minimal left weakness Psych/Mental Status: Normal Affect, Appropriate Vital Signs Temp Pulse Resp BP Pulse Ox 36.3 C L 78 16 131/81 H 98 03/19/19 10:14 03/19/19 10:14 03/19/19 10:14 03/19/19 10:14 05/14/19 10:14 Oxygen Delivery Method Room Air Weight: 66.8 kg Body Mass Index (BMI) 22.4 Finger Stick Blood Glucose 173 Intake and Output for Last 24 Hours 03/17/19 03/18/19 03/19/19 23:59 23:59 23:59 Intake Total 240 / 240 Balance 240 / 240 Laboratory Tests Past 24 Hrs 03/18/19 03/18/19 03/18/19 17:58 17:58 17:58 WBC 5.4 RBC 4.45 L Hgb 13.1 Hct 39.0 L MCV 87.6 MCH 29.4 MCHC 33.6 RDW 13.3 RDW Differential 42.7 Plt Count 211 MPV 9.6 Immature Gran % (Auto) 0.400 Neut % (Auto) 77.4 H Lymph % (Auto) 14.4 L [place] % (Auto) 5.7 Eos % (Auto) 1.7 Baso % (Auto) 0.4 Absolute Neuts (auto) 4.2 Absolute Lymphs (auto) 0.78 L Total Counted Not Reportable PT 13.4 INR 1.0 APTT 28.1 Sodium 140 Potassium 4.2 Chloride 107 Carbon Dioxide 30.0 Anion Gap 3 L BUN 30 H Creatinine 1.12 Estim Creat Clear Calc 48.94 Est GFR (MDRD) Af Amer 81 Est GFR (MDRD) Non-Af 67 BUN/Creatinine Ratio 26.8 H Glucose 170 H Hemoglobin A1c Calcium 8.8 Troponin I < 0.015 Triglycerides Cholesterol LDL Cholesterol VLDL Cholesterol HDL Cholesterol 03/18/19 03/19/19 17:58 05:35 WBC RBC Hgb Hct MCV MCH MCHC RDW RDW Differential Plt Count MPV Immature Gran % (Auto) Neut % (Auto) Lymph % (Auto) [place] % (Auto) Eos % (Auto) Baso % (Auto) Absolute Neuts (auto) Absolute Lymphs (auto) Total Counted PT INR APTT Sodium Potassium Chloride Carbon Dioxide Anion Gap BUN Creatinine Estim Creat Clear Calc Est GFR (MDRD) Af Amer Est GFR (MDRD) Non-Af BUN/Creatinine Ratio Glucose Hemoglobin A1c 7.2 H Calcium Troponin I Triglycerides 84 Cholesterol 159 LDL Cholesterol 94 VLDL Cholesterol 17 HDL Cholesterol 48 POC Glucose 03/19/19 03/18/19 03/18/19 06:55 22:09 17:47 POC Glucose 103 112 H 173 H mri reviewed, acute left subcortical infarct, mra shows left mca stenosis/occlusion. mri/a 2016 doesnt show left mca stenosis Assessment/Plan All Active Problems (Last Reviewed 03/18/19 @ 20:41 by Raymundo Farrell MD) Stroke-like symptoms (Acute) Bronchitis (Acute) Nausea & vomiting (Resolved) numbness on left side of neck (Resolved) right mca infarct, right mca stenosis on mra, sx onset continue plavix allow bp to rise pt/ot/sp consider rehab
[2019-03-19] MEDS: predniSONE 5 MG Tablet PO (10:31)
[2019-03-19] MEDS: Heparin Injection (Vial) 5,000 UNIT/ML VIAL 5000 UNIT SC (10:31)
[2019-03-19] MEDS: Carvedilol 3.125 MG TABLET PO (10:31)
[2019-03-19] MEDS: Aspirin 81 MG TAB.CHEW PO (10:31)
[2019-03-19] MEDS: Multivitamins,Therapeutic Tablet 1 TABLET PO (10:31)
[2019-03-19] MEDS: Calcium Carb/Vitamin D 1 TABLET Tablet PO (10:32)
[2019-03-19] MEDS: Clopidogrel Bisulfate 75 MG Tablet PO (10:32)
--- NOTE | 2019-03-19 10:56 | CASEMGMT ---
Patient has a Healthcare POA and Healthcare LW on file. Denise MILLER SPECIAL DELIVERY CARRIER
[2019-03-19 11:46] LABS: Bedside Glucose 166 mg/dL (70-110)
--- NOTE | 2019-03-19 12:47 | CHAPLAIN ---
Type of Pastoral Visit _x__ Initial Visit ___ Follow-up Visit ___ On-call Visit ___ General Patient Visit ___ Spiritual Assessment ___ Family Conference ___ Bereavement ___ Rapid Response ___ Code Blue ___ Other (describe below) Pastoral Care Referral From _x__ Patient ___ Family ___ Nurse ___ Physician ___ Rim Technician ___ Lodging Facilities Manager ___ Other (describe below) Sacrament/Intervention _x__ Active listening ___ Anointing ___ Mandaen ___ Bereavement ___ Communion _x__ Harriett exploration ___ _x__ Life review _x__ Prayer ___ Reconciliation ___ Sacrament of Sick ___ Supportive presence ___ Wedding ___ Other (describe below) Pastoral Comments
--- NOTE | 2019-03-19 13:08 | CASEMGMT ---
NELLI spoke with patient about his discharge plan. He said he plans on going home at discharge. NELLI spoke with him about the Inpatient Rehab Unit and he said he wants to go home and do his own rehab. His said he is very active at home. Denise MILLER MSW
--- NOTE | 2019-03-19 14:17 | CASEMGMT ---
SW completed a PHQ9 with patient as he had a confirmed Stroke. Patient scored a 4 which indicates minimal depression. 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 Denise MILLER MSW
--- NOTE | 2019-03-19 16:17 | PCM.PN.HOSP ---
Patient Problems: Active and Suspected Problems (Last Reviewed 03/18/19 @ 20:41 by Raymundo Farrell MD) Stroke-like symptoms (Acute) Subjective: Feels good. No further symptoms. Vitals/I&O's: Vital Signs Temp Pulse Resp BP Pulse Ox 36.6 C 67 16 124/74 H 94 03/19/19 14:15 03/19/19 14:15 03/19/19 14:15 03/19/19 14:15 03/19/19 14:15 Oxygen Delivery Method Room Air Weight: 66.8 kg Body Mass Index (BMI) 22.4 Finger Stick Blood Glucose 173 Intake and Output for Last 24 Hours 03/17/19 03/18/19 03/19/19 23:59 23:59 23:59 Intake Total 480 / 480 Balance 480 / 480 General: Alert, No apparent distress HEENT: Atraumatic, Normocephalic Oral: Moist Mucosa, No Gingival or Mucosal Lesions/ Ulcerations Neck: No Nodes, Thyroid Normal Size and Texture Lungs: Clear to auscultation, Normal air movement, No rhonchi, No wheeze Cardiovascular: Regular rate, Regular Rhythm, Normal S1, Normal S2, No murmurs Abdomen: Bowel Sounds Present, Soft, Non Tender, Non-Distended, No Hepato-splenomegaly Extremities: No edema, No Calf Tenderness Skin: No rashes, No breakdown Musculoskeletal: No Tenderness to Palpation of Joints or Extremities, No Muscle Wasting Psych/Mental Status: Normal Affect, Appropriate Laboratory Results 03/18/19 17:47: POC Glucose 173 H 03/18/19 17:58: WBC 5.4, RBC 4.45 L, Hgb 13.1, Hct 39.0 L, MCV 87.6, MCH 29.4, MCHC 33.6, RDW 13.3, RDW Differential 42.7, Plt Count 211, MPV 9.6, Immature Gran % (Auto) 0.400, Neut % (Auto) 77.4 H, Lymph % (Auto) 14.4 L, [place] % (Auto) 5.7, Eos % (Auto) 1.7, Baso % (Auto) 0.4, Absolute Neuts (auto) 4.2, Absolute Lymphs (auto) 0.78 L, Total Counted Not Reportable 03/18/19 17:58: PT 13.4, INR 1.0, APTT 28.1 03/18/19 17:58: Sodium 140, Potassium 4.2, Chloride 107, Carbon Dioxide 30.0, Anion Gap 3 L, BUN 30 H, Creatinine 1.12, Estim Creat Clear Calc 48.94, Est GFR (MDRD) Af Amer 81, Est GFR (MDRD) Non-Af 67, BUN/Creatinine Ratio 26.8 H, Glucose 170 H, Calcium 8.8, Troponin I < 0.015 03/18/19 17:58: Hemoglobin A1c 7.2 H 03/18/19 22:09: POC Glucose 112 H 03/19/19 05:35: Triglycerides 84, Cholesterol 159, LDL Cholesterol 94, VLDL Cholesterol 17, HDL Cholesterol 48 03/19/19 06:55: POC Glucose 103 03/19/19 11:37: POC Glucose 166 H Current Medications Acetaminophen (Tylenol) 650 mg PO Q6H PRN PRN PRN Reason: Mild pain 1-3/Temp > 100.7 F Aspirin (Aspirin, Baby) 81 mg PO DAILY@0800 [facility] Last Admin: 03/19/19 10:31 Dose: 81 mg Atorvastatin Calcium (Lipitor) 40 mg PO QHS [facility] Last Admin: 03/18/19 22:03 Dose: 40 mg Calcium/Vitamin D (Os-Duarte 500mg + D) 1 tablet PO BID [facility] Last Admin: 03/19/19 10:32 Dose: 1 tablet Carvedilol (Coreg) 3.125 mg PO BID [facility] Last Admin: 03/19/19 10:31 Dose: 3.125 mg Clopidogrel Bisulfate (Plavix) 75 mg PO DAILY [facility] Last Admin: 03/19/19 10:32 Dose: 75 mg Dextrose (D50w Syringe) 0 gm IV X1 PRN; Protocol PRN Reason: Hypoglycemia Glucagon () 1 mg IM .X1 PRN PRN Reason: Hypoglycemia Heparin Sodium (Porcine) (Heparin Na) 5,000 unit SC Q12 [facility] Last Admin: 03/19/19 10:31 Dose: 5,000 unit Insulin Glargine (Lantus (Bkc)) 7 units SC DAILY [facility] Last Admin: 03/19/19 10:32 Dose: 7 units Multivitamins (Multivitamin) 1 tablet PO DAILY@0800 [facility] Last Admin: 03/19/19 10:31 Dose: 1 tablet Pramipexole Dihydrochloride (Mirapex) 1.5 mg PO QHS [facility] Last Admin: 03/18/19 22:03 Dose: 1.5 mg [facility] () [facility] Last Admin: 03/19/19 10:31 Dose: 5 mg Prochlorperazine Edisylate (Compazine Iv) 5 mg IV Q4H PRN PRN PRN Reason: Breakthrough Nausea/Vomiting Sodium Chloride () 5 - 15 ml IV UD PRN PRN Reason: SALINE FLUSH Medical Necessity - Tobacco Use Smoking Status: Never smoker Tobacco Use: Non-smoker Assessment/Plan All Active Problems (Last Reviewed 03/18/19 @ 20:41 by Raymundo Farrell MD) Stroke-like symptoms (Acute) Bronchitis (Acute) Nausea & vomiting (Resolved) numbness on left side of neck (Resolved) 1. Acute left MCA CVA noted high-grade stenosis on left M1 segment already on clopidogrel. On ASA plus HIS (for age) await on echocardiogram seen by therapy, no additional therapy needs at this time. follow up with neurology as outpt. 2. DM2 fair control continue Lantus 3. VTE proph: SQ heparin Code Visit Inpatient E&M: 91124 Subs Hosp L2
--- NOTE | 2019-03-19 16:23 | PN_ITS ---
Patient Problems: Active and Suspected Problems (Last Reviewed 03/18/19 @ 20:41 by Raymundo Farrell MD) Stroke-like symptoms (Acute) Subjective: Feels good. No further symptoms. Vitals/I&O's: Vital Signs Temp Pulse Resp BP Pulse Ox 36.6 C 67 16 124/74 H 94 03/19/19 14:15 03/19/19 14:15 03/19/19 14:15 03/19/19 14:15 03/19/19 14:15 Oxygen Delivery Method Room Air Weight: 66.8 kg Body Mass Index (BMI) 22.4 Finger Stick Blood Glucose 173 Intake and Output for Last 24 Hours 03/17/19 03/18/19 03/19/19 23:59 23:59 23:59 Intake Total 480 / 480 Balance 480 / 480 General: Alert, No apparent distress HEENT: Atraumatic, Normocephalic Oral: Moist Mucosa, No Gingival or Mucosal Lesions/ Ulcerations Neck: No Nodes, Thyroid Normal Size and Texture Lungs: Clear to auscultation, Normal air movement, No rhonchi, No wheeze Cardiovascular: Regular rate, Regular Rhythm, Normal S1, Normal S2, No murmurs Abdomen: Bowel Sounds Present, Soft, Non Tender, Non-Distended, No Hepato- splenomegaly Extremities: No edema, No Calf Tenderness Skin: No rashes, No breakdown Musculoskeletal: No Tenderness to Palpation of Joints or Extremities, No Muscle Wasting Psych/Mental Status: Normal Affect, Appropriate Laboratory Results 03/18/19 17:47: POC Glucose 173 H 03/18/19 17:58: WBC 5.4, RBC 4.45 L, Hgb 13.1, Hct 39.0 L, MCV 87.6, MCH 29.4, MCHC 33.6, RDW 13.3, RDW Differential 42.7, Plt Count 211, MPV 9.6, Immature Gran % (Auto) 0.400, Neut % (Auto) 77.4 H, Lymph % (Auto) 14.4 L, [place] % (Auto) 5.7, Eos % (Auto) 1.7, Baso % (Auto) 0.4, Absolute Neuts (auto) 4.2, Absolute Lymphs (auto) 0.78 L, Total Counted Not Reportable 03/18/19 17:58: PT 13.4, INR 1.0, APTT 28.1 03/18/19 17:58: Sodium 140, Potassium 4.2, Chloride 107, Carbon Dioxide 30.0, Anion Gap 3 L, BUN 30 H, Creatinine 1.12, Estim Creat Clear Calc 48.94, Est GFR (MDRD) Af Amer 81, Est GFR (MDRD) Non-Af 67, BUN/Creatinine Ratio 26.8 H, Glucose 170 H, Calcium 8.8, Troponin I < 0.015 03/18/19 17:58: Hemoglobin A1c 7.2 H 03/18/19 22:09: POC Glucose 112 H 03/19/19 05:35: Triglycerides 84, Cholesterol 159, LDL Cholesterol 94, VLDL Cholesterol 17, HDL Cholesterol 48 03/19/19 06:55: POC Glucose 103 03/19/19 11:37: POC Glucose 166 H Current Medications Acetaminophen (Tylenol) 650 mg PO Q6H PRN PRN PRN Reason: Mild pain 1-3/Temp > 100.7 F Aspirin (Aspirin, Baby) 81 mg PO DAILY@0800 [facility] Last Admin: 03/19/19 10:31 Dose: 81 mg Atorvastatin Calcium (Lipitor) 40 mg PO QHS [facility] Last Admin: 03/18/19 22:03 Dose: 40 mg Calcium/Vitamin D (Os-[place] 500mg + D) 1 tablet PO BID [facility] Last Admin: 03/19/19 10:32 Dose: 1 tablet Carvedilol (Coreg) 3.125 mg PO BID [facility] Last Admin: 03/19/19 10:31 Dose: 3.125 mg Clopidogrel Bisulfate (Plavix) 75 mg PO DAILY [facility] Last Admin: 03/19/19 10:32 Dose: 75 mg Dextrose (D50w Syringe) 0 gm IV X1 PRN; Protocol PRN Reason: Hypoglycemia Glucagon () 1 mg IM .X1 PRN PRN Reason: Hypoglycemia Heparin Sodium (Porcine) (Heparin Na) 5,000 unit SC Q12 [facility] Last Admin: 03/19/19 10:31 Dose: 5,000 unit Insulin Glargine (Lantus (Bkc)) 7 units SC DAILY [facility] Last Admin: 03/19/19 10:32 Dose: 7 units Multivitamins (Multivitamin) 1 tablet PO DAILY@0800 [facility] Last Admin: 03/19/19 10:31 Dose: 1 tablet Pramipexole Dihydrochloride (Mirapex) 1.5 mg PO QHS [facility] Last Admin: 03/18/19 22:03 Dose: 1.5 mg [facility] () [facility] Admin: 03/19/19 10:31 Dose: 5 mg Prochlorperazine Edisylate (Compazine Iv) 5 mg IV Q4H PRN PRN PRN Reason: Breakthrough Nausea/Vomiting Sodium Chloride () 5 - 15 ml IV UD PRN PRN Reason: SALINE FLUSH Medical Necessity - Tobacco Use Smoking Status: Never smoker Tobacco Use: Non-smoker Assessment/Plan All Active Problems (Last Reviewed 03/18/19 @ 20:41 by Raymundo Farrell MD) Stroke-like symptoms (Acute) Bronchitis (Acute) Nausea & vomiting (Resolved) numbness on left side of neck (Resolved) 1. Acute left MCA CVA * noted high-grade stenosis on left M1 segment * already on clopidogrel. On ASA plus HIS (for age) * await on echocardiogram * seen by therapy, no additional therapy needs at this time. * follow up with neurology as outpt. 2. DM2 * fair control * continue Lantus 3. VTE proph: SQ heparin Code Visit Inpatient E&M: 35678 Subs Hosp L2
--- NOTE | 2019-03-19 16:44 | DCINST_ITS ---
- Discharge Diagnoses Current Active Problems: Current Active and Chronic Problems (Last Reviewed 03/18/19 @ 20:41 by Raymundo Farrell MD) Stroke-like symptoms (Acute) You will use the following diet at home:: Calorie/Carbohydrate Controlled (specify 1200, 1400, etc) - 1800, Cardiac Your food should be the consistency of: Regular Your liquids should be the consistency of: Regular/Thin Call your doctor if you observe: Fever of 101 or Higher, Inability to urinate, Shortness of breath, - - trouble speaking, unsteadiness, unilateral weakness. Allergies/Adverse Reactions: Allergies codeine Allergy (Verified 03/18/19 16:56) Hives gabapentin Allergy (Verified 03/18/19 16:56) Rash hydrocodone bitartrate [From Vicodin] Allergy (Verified 03/18/19 16:56) Rash oxycodone [From OxyContin] Allergy (Verified 03/18/19 16:56) Rash oxycodone HCl [From Percocet] Allergy (Verified 03/18/19 16:56) Hives Penicillins [PCN] Allergy (Verified 03/18/19 16:56) Rash Sulfa (Sulfonamide Antibiotics) Allergy (Verified 03/18/19 16:56) Rash tramadol Allergy (Verified 03/18/19 16:56) Unknown glyburide Adverse Reaction (Verified 03/18/19 16:56) Diarrhea metformin Adverse Reaction (Verified 03/18/19 16:56) Diarrhea Medications to take at Discharge Insulin Glargine [Lantus SoloStar Pen] 7 units SC DAILY 09/28/16 alfalfa tablet 1 tab PO BID 11/29/17 Calcium Carbonate/Vitamin D3 [Calcium 600-Vit D3 200 Tablet] 1 tab PO BID MDD bones 03/18/19 Carvedilol [Coreg (Beta Zenon)] 3.125 mg PO BID 03/18/19 Clopidogrel Bisulfate [Plavix] 75 mg PO DAILY 03/18/19 Multivitamin [Daily Татьяна] 1 tab PO DAILY 03/18/19 Pramipexole Di-HCl [Mirapex] 1.5 mg PO QHS 03/18/19 Prednisone 5 mg PO DAILY 03/18/19 Aspirin [Aspirin, Baby] 81 mg PO DAILY@0800 tab.chew 03/19/19 Atorvastatin Calcium [Lipitor] 40 mg PO QHS #30 tablet 03/19/19 The following prescriptions were given: Atorvastatin Calcium [Lipitor] 40 mg PO QHS #30 tablet Primary Care Physician: London Gupta MD [Primary Care Provider] - Within 2 Weeks Test Results: Test results from this visit will be discussed in further detail at your follow- up appointment, if applicable. Please Follow Up With: Aime Sanders MD - neurology follow up for CVA When: 4-6 weeks Proposed Discharge Date: 03/19/19
--- NOTE | 2019-03-19 16:44 | PCM.DC.SUM ---
Discharge Date and Diagnosis - Problem List Patient Problems: Active and Suspected Problems (Last Reviewed 03/18/19 @ 20:41 by Raymundo Farrell MD) CVA (cerebral vascular accident) (Acute) Stroke-like symptoms (Acute) Date of Admission: 03/18/19 Date of Discharge: 03/19/19 - Primary Discharge Diagnosis Active and Suspected Problems (Last Reviewed 03/18/19 @ 20:41 by Raymundo Farrell MD) CVA (cerebral vascular accident) (Acute) Stroke-like symptoms (Acute) Acute Left MCA CVA - Secondary Discharge Diagnosis Chronic Problems (Last Reviewed 03/18/19 @ 20:41 by Raymundo Farrell MD) Presence of aortocoronary bypass graft (Chronic) CABG LAD to WOLF, SVG to RCA, SVG to lateral and ramus branches of CFX 06/19 Abnormal result of cardiovascular function study (Chronic) Stress test Premature ventricular contractions (Chronic) Encounter for long-term (current) use of other medications (Chronic) TIA (transient ischemic attack) (Chronic) Osteoporosis (Chronic) Hip pain, chronic (Chronic) DM type 2 (diabetes mellitus, type 2) (Chronic) CAD (coronary artery disease) (Chronic) CABG LAD to WOLF, SVG to RCA, SVG to lateral and ramus branches of CFX 06/19 S/P CABG x 4 (Chronic) HTN (hypertension) (Chronic) PMR (polymyalgia rheumatica) (Chronic) CVA (cerebral vascular accident) (Chronic) January of 2016 with extension in March of 2016 Rib fractures (Chronic) anterior left 4th and 5th ribs Left acetabular fracture (Chronic) Dyslipidemia (Chronic) Normochromic normocytic anemia (Chronic) Steroid dependent (Chronic) Hospital Course and Treatment Imaging Results: 03/19/19 08:30 Brain without Contrast [MRI] Routine MRA Head ONLY without Contrast [MRI] Routine MRA Neck WITH and W/O Contrast [MRI] Routine Clinical Impression(s) from Imaging Studies Brain CT 03/18/19 17:34 IMPRESSION: 1. Chronic involutional changes of the brain, with progression of chronic microvascular ischemic change since previous study. 2. Additional small zone of chronic ischemic change now present, extending from the neck of the right caudate nucleus through the supraventricular white matter into the upper right lentiform nucleus. 3. Stable old infarct in the posterior left cerebral hemisphere. Electronically Signed: Kem Bland MD at 18:45 EDT , Service support , Chest X-Ray 03/18/19 17:34 IMPRESSION: Stable x-ray examination of the chest since March 2016, as described. Electronically Signed: Kem Bland MD at 18:07 EDT , Service support , Brain MRI 03/19/19 08:30 IMPRESSION: 2.8 x 0.7 cm acute infarct in the left frontoparietal lobe periventricular white matter corresponding to the left MCA vascular territory. There are additional punctate foci of acute infarct in the left parietal lobe periventricular white matter and the left internal capsule anterior limb. No intracranial hemorrhage. Stable chronic findings described above. Electronically Signed: Maru Mendoza, at 9:49 EDT Tel , Service support , ADDENDUM: 03/19/19 0956 IMPRESSION: 2.8 x 0.7 cm acute infarct in the left frontoparietal lobe periventricular white matter corresponding to the left MCA vascular territory. There are additional punctate foci of acute infarct in the left parietal lobe periventricular white matter and the left internal capsule anterior limb. No intracranial hemorrhage. Stable chronic findings described above. N.B. : The above information has been verbally conveyed by Maru Mendoza to Anjel Hughes RN, on 03/19/2019 09:49:57 (ET). Electronically Signed: Maru Mendoza at 9:49 EDT Tel , Service support , Head MRA 03/19/19 08:30 IMPRESSION: There is focal high-grade stenosis of the left M1 segment with reconstitution of the left M1 bifurcation, M2 and M3 segments, though these appear somewhat diminutive in size/demonstrating slower flow when compared to the right side. These findings are new since 2015. 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 Electronically Signed: Maru Mendoza, at 10:04 EDT Tel , Service support , Neck MRA 03/19/19 08:30 IMPRESSION: Normal bilateral cervical carotid and vertebral arteries. Electronically Signed: Maru Mendoza, at 10:15 EDT Tel , Service support , Aime Sanders MD: neurology Operations: None Procedures: 2-D Echocardiogram Summary of Care Provided: The patient is a 78 year old M presents with unsteadiness and expressive aphasia. Patient was admitted underwent a stroke work-up. MRI showed left MCA distribution stroke. MRA showed high-grade stenosis of the M1 segment. Seen by neurology as well as physical and occupational therapy. Therapies recommended return to home as patient's symptoms have likely resolved. Patient was on Plavix prior to arrival. Atorvastatin has been added and sent to his pharmacy and patient will continue with aspirin. Patient will need to follow-up with neurology next 4 to 6 weeks. At that time as this dictation echocardiogram has not been yet completed we will follow that up and if any acute abnormalities then will contact the patient for further instructions. [] Patient Problems: Active and Suspected Problems (Last Reviewed 03/18/19 @ 20:41 by Raymundo Farrell MD) CVA (cerebral vascular accident) (Acute) Stroke-like symptoms (Acute) - Physical Exam Vital Signs Temp Pulse Resp BP Pulse Ox 36.6 C 67 16 124/74 H 94 03/19/19 14:15 03/19/19 14:15 03/19/19 14:15 03/19/19 14:15 03/19/19 14:15 Oxygen Delivery Method Room Air Weight: 66.8 kg Body Mass Index (BMI) 22.4 Finger Stick Blood Glucose 173 Intake and Output for Last 24 Hours 03/17/19 03/18/19 03/19/19 23:59 23:59 23:59 Intake Total 480 / 480 Balance 480 / 480 Laboratory Tests Past 24 Hrs 03/18/19 03/18/19 03/18/19 17:58 17:58 17:58 WBC 5.4 RBC 4.45 L Hgb 13.1 Hct 39.0 L MCV 87.6 MCH 29.4 MCHC 33.6 RDW 13.3 RDW Differential 42.7 Plt Count 211 MPV 9.6 Immature Gran % (Auto) 0.400 Neut % (Auto) 77.4 H Lymph % (Auto) 14.4 L Schleicher % (Auto) 5.7 Eos % (Auto) 1.7 Baso % (Auto) 0.4 Absolute Neuts (auto) 4.2 Absolute Lymphs (auto) 0.78 L Total Counted Not Reportable PT 13.4 INR 1.0 APTT 28.1 Sodium 140 Potassium 4.2 Chloride 107 Carbon Dioxide 30.0 Anion Gap 3 L BUN 30 H Creatinine 1.12 Estim Creat Clear Calc 48.94 Est GFR (MDRD) Af Amer 81 Est GFR (MDRD) Non-Af 67 BUN/Creatinine Ratio 26.8 H Glucose 170 H Hemoglobin A1c Calcium 8.8 Troponin I < 0.015 Triglycerides Cholesterol LDL Cholesterol VLDL Cholesterol HDL Cholesterol 03/18/19 03/19/19 17:58 05:35 WBC RBC Hgb Hct MCV MCH MCHC RDW RDW Differential Plt Count MPV Immature Gran % (Auto) Neut % (Auto) Lymph % (Auto) Schleicher % (Auto) Eos % (Auto) Baso % (Auto) Absolute Neuts (auto) Absolute Lymphs (auto) Total Counted PT INR APTT Sodium Potassium Chloride Carbon Dioxide Anion Gap BUN Creatinine Estim Creat Clear Calc Est GFR (MDRD) Af Amer Est GFR (MDRD) Non-Af BUN/Creatinine Ratio Glucose Hemoglobin A1c 7.2 H Calcium Troponin I Triglycerides 84 Cholesterol 159 LDL Cholesterol 94 VLDL Cholesterol 17 HDL Cholesterol 48 POC Glucose 03/19/19 03/19/19 03/18/19 11:37 06:55 22:09 POC Glucose 166 H 103 112 H 03/18/19 17:47 POC Glucose 173 H Discharge Diet: Low fat/ Low Cholesterol, 1800 Calorie Control Diet Discharge Activity: Return to Normal Activity Call your doctor if you observe: Fever of 101 or Higher, Inability to urinate, Shortness of breath, - - trouble speaking, unsteadiness, unilateral weakness. Home Medications: Medications to take at Discharge Insulin Glargine [Lantus SoloStar Pen] 7 units SC DAILY 09/28/16 alfalfa tablet 1 tab PO BID 11/29/17 Calcium Carbonate/Vitamin D3 [Calcium 600-Vit D3 200 Tablet] 1 tab PO BID MDD bones 03/18/19 Carvedilol [Coreg (Beta Zenon)] 3.125 mg PO BID 03/18/19 Clopidogrel Bisulfate [Plavix] 75 mg PO DAILY 03/18/19 Multivitamin [Daily Татьяна] 1 tab PO DAILY 03/18/19 Pramipexole Di-HCl [Mirapex] 1.5 mg PO QHS 03/18/19 Prednisone 5 mg PO DAILY 03/18/19 Aspirin [Aspirin, Baby] 81 mg PO DAILY@0800 tab.chew 03/19/19 Atorvastatin Calcium [Lipitor] 40 mg PO QHS #30 tablet 03/19/19 Following Prescrptions Were Given to Patient: Atorvastatin Calcium [Lipitor] 40 mg PO QHS #30 tablet Primary Care Physician: London Gupta MD [Primary Care Provider] - Within 2 Weeks Please Follow Up With: Aime Sanders MD - neurology follow up for CVA When: 4-6 weeks Disposition: Home Minutes spent on discharge:: 28 Patient Condition:: Good Medical Necessity - Tobacco Use Smoking Status: Never smoker Tobacco Use: Non-smoker Meaningful Use Info Meaningful Use Diagnoses (Choose all that apply): Ischemic CVA - CVA Therapy Assessed for PT,OT and/or ST?: Yes - Ischemic Stroke Antithrombotic order at d/c?: Yes Dx of Atrial fib/flutter?: No Anticoagulant at discharge?: No Reason anticoagulant not ordered: Procedure not Indicated Statins at discharge?: Yes Primary Dx Acute Ischemic CVA?: Yes IV tPA ordered during stay?: No Reason IV t-PA not ordered: Procedure not Indicated Code Visit OBSV E&M: 61979 Observation care discharge
--- NOTE | 2019-03-19 16:48 | DS.PCM_ITS ---
Discharge Date and Diagnosis - Problem List Patient Problems: Active and Suspected Problems (Last Reviewed 03/18/19 @ 20:41 by Raymundo Farrell MD) CVA (cerebral vascular accident) (Acute) Stroke-like symptoms (Acute) Date of Admission: 03/18/19 Date of Discharge: 03/19/19 - Primary Discharge Diagnosis Active and Suspected Problems (Last Reviewed 03/18/19 @ 20:41 by Raymundo Farrell MD) CVA (cerebral vascular accident) (Acute) Stroke-like symptoms (Acute) Acute Left MCA CVA - Secondary Discharge Diagnosis Chronic Problems (Last Reviewed 03/18/19 @ 20:41 by Raymundo Farrell MD) Presence of aortocoronary bypass graft (Chronic) CABG LAD to WOLF, SVG to RCA, SVG to lateral and ramus branches of CFX 06/19 Abnormal result of cardiovascular function study (Chronic) Stress test Premature ventricular contractions (Chronic) Encounter for long-term (current) use of other medications (Chronic) TIA (transient ischemic attack) (Chronic) Osteoporosis (Chronic) Hip pain, chronic (Chronic) DM type 2 (diabetes mellitus, type 2) (Chronic) CAD (coronary artery disease) (Chronic) CABG LAD to WOLF, SVG to RCA, SVG to lateral and ramus branches of CFX 06/19 S/P CABG x 4 (Chronic) HTN (hypertension) (Chronic) PMR (polymyalgia rheumatica) (Chronic) CVA (cerebral vascular accident) (Chronic) January of 2016 with extension in March of 2016 Rib fractures (Chronic) anterior left 4th and 5th ribs Left acetabular fracture (Chronic) Dyslipidemia (Chronic) Normochromic normocytic anemia (Chronic) Steroid dependent (Chronic) Hospital Course and Treatment Imaging Results: 03/19/19 08:30 Brain without Contrast [MRI] Routine MRA Head ONLY without Contrast [MRI] Routine MRA Neck WITH and W/O Contrast [MRI] Routine Clinical Impression(s) from Imaging Studies Brain CT 03/18/19 17:34 IMPRESSION: 1. Chronic involutional changes of the brain, with progression of chronic microvascular ischemic change since previous study. 2. Additional small zone of chronic ischemic change now present, extending from the neck of the right caudate nucleus through the supraventricular white matter into the upper right lentiform nucleus. 3. Stable old infarct in the posterior left cerebral hemisphere. Electronically Signed: Kem Bland MD at 18:45 EDT , Service support , Chest X-Ray 03/18/19 17:34 IMPRESSION: Stable x-ray examination of the chest since March 2016, as described. Electronically Signed: Kem Bland MD at 18:07 EDT , Service support , Brain MRI 03/19/19 08:30 IMPRESSION: 2.8 x 0.7 cm acute infarct in the left frontoparietal lobe periventricular white matter corresponding to the left MCA vascular territory. There are additional punctate foci of acute infarct in the left parietal lobe periventricular white matter and the left internal capsule anterior limb. No intracranial hemorrhage. Stable chronic findings described above. Electronically Signed: Maru Mendoza, at 9:49 EDT Tel , Service support , ADDENDUM: 03/19/19 0956 IMPRESSION: 2.8 x 0.7 cm acute infarct in the left frontoparietal lobe periventricular white matter corresponding to the left MCA vascular territory. There are additional punctate foci of acute infarct in the left parietal lobe periventricular white matter and the left internal capsule anterior limb. No intracranial hemorrhage. Stable chronic findings described above. N.B. : The above information has been verbally conveyed by Maru Mendoza to Anjel Hughes RN, on 03/19/2019 09:49:57 (ET). Electronically Signed: Maru Mendoza at 9:49 EDT Tel , Service support , Head MRA 03/19/19 08:30 IMPRESSION: There is focal high-grade stenosis of the left M1 segment with reconstitution of the left M1 bifurcation, M2 and M3 segments, though these appear somewhat diminutive in size/demonstrating slower flow when compared to the right side. These findings are new since 2015. 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 Electronically Signed: Maru Mendoza, at 10:04 EDT Tel , Service support , Neck MRA 03/19/19 08:30 IMPRESSION: Normal bilateral cervical carotid and vertebral arteries. Electronically Signed: Maru Mendoza, at 10:15 EDT Tel , Service support , Aime Sanders MD: neurology Operations: None Procedures: 2-D Echocardiogram Summary of Care Provided: The patient is a 78 year old M presents with unsteadiness and expressive aphasia. Patient was admitted underwent a stroke work-up. MRI showed left MCA distribution stroke. MRA showed high-grade stenosis of the M1 segment. Seen by neurology as well as physical and occupational therapy. Therapies recommended return to home as patient's symptoms have likely resolved. Patient was on Plavix prior to arrival. Atorvastatin has been added and sent to his pharmacy and patient will continue with aspirin. Patient will need to follow-up with neurology next 4 to 6 weeks. At that time as this dictation echocardiogram has not been yet completed we will follow that up and if any acute abnormalities then will contact the patient for further instructions. [] Patient Problems: Active and Suspected Problems (Last Reviewed 03/18/19 @ 20:41 by Raymundo Farrell MD) CVA (cerebral vascular accident) (Acute) Stroke-like symptoms (Acute) - Physical Exam Vital Signs Temp Pulse Resp BP Pulse Ox 36.6 C 67 16 124/74 H 94 03/19/19 14:15 03/19/19 14:15 03/19/19 14:15 03/19/19 14:15 03/19/19 14:15 Oxygen Delivery Method Room Air Weight: 66.8 kg Body Mass Index (BMI) 22.4 Finger Stick Blood Glucose 173 Intake and Output for Last 24 Hours 03/17/19 03/18/19 03/19/19 23:59 23:59 23:59 Intake Total 480 / 480 Balance 480 / 480 Laboratory Tests Past 24 Hrs 03/18/19 03/18/19 03/18/19 17:58 17:58 17:58 WBC 5.4 RBC 4.45 L Hgb 13.1 Hct 39.0 L MCV 87.6 MCH 29.4 MCHC 33.6 RDW 13.3 RDW Differential 42.7 Plt Count 211 MPV 9.6 Immature Gran % (Auto) 0.400 Neut % (Auto) 77.4 H Lymph % (Auto) 14.4 L [place] % (Auto) 5.7 Eos % (Auto) 1.7 Baso % (Auto) 0.4 Absolute Neuts (auto) 4.2 Absolute Lymphs (auto) 0.78 L Total Counted Not Reportable PT 13.4 INR 1.0 APTT 28.1 Sodium 140 Potassium 4.2 Chloride 107 Carbon Dioxide 30.0 Anion Gap 3 L BUN 30 H Creatinine 1.12 Estim Creat Clear Calc 48.94 Est GFR (MDRD) Af Amer 81 Est GFR (MDRD) Non-Af 67 BUN/Creatinine Ratio 26.8 H Glucose 170 H Hemoglobin A1c Calcium 8.8 Troponin I < 0.015 Triglycerides Cholesterol LDL Cholesterol VLDL Cholesterol HDL Cholesterol 03/18/19 03/19/19 17:58 05:35 WBC RBC Hgb Hct MCV MCH MCHC RDW RDW Differential Plt Count MPV Immature Gran % (Auto) Neut % (Auto) Lymph % (Auto) [place] % (Auto) Eos % (Auto) Baso % (Auto) Absolute Neuts (auto) Absolute Lymphs (auto) Total Counted PT INR APTT Sodium Potassium Chloride Carbon Dioxide Anion Gap BUN Creatinine Estim Creat Clear Calc Est GFR (MDRD) Af Amer Est GFR (MDRD) Non-Af BUN/Creatinine Ratio Glucose Hemoglobin A1c 7.2 H Calcium Troponin I Triglycerides 84 Cholesterol 159 LDL Cholesterol 94 VLDL Cholesterol 17 HDL Cholesterol 48 POC Glucose 03/19/19 03/19/19 03/18/19 11:37 06:55 22:09 POC Glucose 166 H 103 112 H 03/18/19 17:47 POC Glucose 173 H Discharge Diet: Low fat/ Low Cholesterol, 1800 Calorie Control Diet Discharge Activity: Return to Normal Activity Call your doctor if you observe: Fever of 101 or Higher, Inability to urinate, Shortness of breath, - - trouble speaking, unsteadiness, unilateral weakness. Home Medications: Medications to take at Discharge Insulin Glargine [Lantus SoloStar Pen] 7 units SC DAILY 09/28/16 alfalfa tablet 1 tab PO BID 11/29/17 Calcium Carbonate/Vitamin D3 [Calcium 600-Vit D3 200 Tablet] 1 tab PO BID MDD bones 03/18/19 Carvedilol [Coreg (Beta Zenon)] 3.125 mg PO BID 03/18/19 Clopidogrel Bisulfate [Plavix] 75 mg PO DAILY 03/18/19 Multivitamin [Daily Татьяна] 1 tab PO DAILY 03/18/19 Pramipexole Di-HCl [Mirapex] 1.5 mg PO QHS 03/18/19 Prednisone 5 mg PO DAILY 03/18/19 Aspirin [Aspirin, Baby] 81 mg PO DAILY@0800 tab.chew 03/19/19 Atorvastatin Calcium [Lipitor] 40 mg PO QHS #30 tablet 03/19/19 Following Prescrptions Were Given to Patient: Atorvastatin Calcium [Lipitor] 40 mg PO QHS #30 tablet Primary Care Physician: London Gupta MD [Primary Care Provider] - Within 2 Weeks Please Follow Up With: Aime Sanders MD - neurology follow up for CVA When: 4-6 weeks Disposition: Home Minutes spent on discharge:: 28 Patient Condition:: Good Medical Necessity - Tobacco Use Smoking Status: Never smoker Tobacco Use: Non-smoker Meaningful Use Info Meaningful Use Diagnoses (Choose all that apply): Ischemic CVA - CVA Therapy Assessed for PT,OT and/or ST?: Yes - Ischemic Stroke Antithrombotic order at d/c?: Yes Dx of Atrial fib/flutter?: No Anticoagulant at discharge?: No Reason anticoagulant not ordered: Procedure not Indicated Statins at discharge?: Yes Primary Dx Acute Ischemic CVA?: Yes IV tPA ordered during stay?: No Reason IV t-PA not ordered: Procedure not Indicated Code Visit OBSV E&M: 53826 Observation care discharge
[2019-03-19 17:56] LABS: Bedside Glucose 217 mg/dL (70-110)
== END 2019-03-19 16:44 | disposition home or self-care (01) ==
LOC: ED 17:59 → PCU 20:34
PROVIDERS: Admitting Provider Hospitalist; Emergency Provider Emergency Medicine; Family Provider Family Medicine; PCP Family Medicine; Referring Provider Hospitalist
DX: I63.9 Cerebral infarction, unspecified (principal); R47.01 Aphasia; R27.0 Ataxia, unspecified; I25.10 Atherosclerotic heart disease of native coronary artery without angina pectoris; Z95.1 Presence of aortocoronary bypass graft; I10 Essential (primary) hypertension; E11.9 Type 2 diabetes mellitus without complications; G25.81 Restless legs syndrome; Z79.4 Long term (current) use of insulin; Z79.02 Long term (current) use of antithrombotics/antiplatelets; Z79.899 Other long term (current) drug therapy; E78.5 Hyperlipidemia, unspecified; M35.3 Polymyalgia rheumatica; Z79.52 Long term (current) use of systemic steroids
CPT/HCPCS: 36415; 70450; 70544; 70549; 70551; 71045; 80048; 80061; 82962; 83036; 84484; 85025; 85610; 85730; 92523; 92610; 93005; 93306; 96372; 97163; 97166; 99218; 99285; A9575; Q9957; A4216; C8929; G0378

== ENCOUNTER 2019-04-01 09:17 | Observation (INO) | payer MEDICARE, OTHER, SELFPAY ==
[2019-03-19 13:53] VITALS: BMI 22.4
[2019-04-01] VITALS (11 sets, daily range): BP systolic 123–162; BP diastolic 77–98; PULSE 58–89; RESP 12–18; TEMP 36.4–36.9; O2SAT 93–99; BMI 22.0; BMI 21.9
--- NOTE | 2019-04-01 09:52 | ED.VISSUMM ---
- ER Visit Summary Date of Service: 04/01/19 Chief Complaint: [] History of Present Illness: The patient is a 78 M [] Physical Examination: [] Test Results: [] Emergency Department Course and Treatment: [] Treatment Plan: [] Disposition: [] Impression: [] This note was generated with [employer] dictation software. It may contain incorrect words, spelling, and punctuation that were not noted in review of the chart prior to signing ED Disposition - Plan for ED Patient: Referrals: London Gupta MD [Primary Care Provider] -
--- NOTE | 2019-04-01 09:54 | CT_ITS ---
STUDY: CT BRAIN WITHOUT CONTRAST REASON FOR EXAM: Male, 78 years old. Weakness, balance issues RADIATION DOSAGE (If Supplied By Facility): CTDIvol = ( 44.99 ) mGy, DLP = ( 779.24 ) mGycm TECHNIQUE: Transaxial CT imaging of the brain was performed without administration of intravenous contrast material. Individualized dose optimization techniques were used for this CT. COMPARISON: 03/18/2019 FINDINGS: Normal soft tissue structures. Normal calvarium. There is mild cerebral atrophy with widening of the extra-axial spaces and ventricular dilatation. There are areas of decreased attenuation within the white matter tracts of the supratentorial brain, consistent with microvascular disease changes. Old right caudate nucleus infarct Normal brainstem. Normal cerebellum. There is no intracranial hemorrhage. There are no findings of an acute ischemic infarction. Normal visualized paranasal sinuses. CT/Brain/Head without Contrast IMPRESSION: Chronic involutional changes of the brain. No acute hemorrhage or significant interval change Electronically Signed: Kem Hampton MD at 10:40 EDT , Service support ,
--- NOTE | 2019-04-01 09:55 | EKG12_ITS ---
Test Reason : WEAKNESS Blood Pressure : / mmHG Vent. Rate : 074 BPM Atrial Rate : 074 BPM P-R Int : 172 ms QRS Dur : 132 ms QT Int : 404 ms P-R-T Axes : 039 -26 036 degrees QTc Int : 448 ms Sinus rhythm with Premature atrial complexes Non-specific intra-ventricular conduction block Abnormal ECG Confirmed by HILARY SOL, LUIS ARMANDO ([id number]), offline editor LIZ ANTON ([id number]) on 04/03/2019 9:20:16 AM Referred By: Sunitha Granados Confirmed By:LUIS ARMANDO RICHARD MD
--- NOTE | 2019-04-01 09:56 | ED.DCSUM_ITS ---
- ER Visit Summary Date of Service: 04/01/19 Chief Complaint: [] History of Present Illness: The patient is a 78 M [] Physical Examination: [] Test Results: [] Emergency Department Course and Treatment: [] Treatment Plan: [] Disposition: [] Impression: [] This note was generated with [employer] dictation software. It may contain incorrect words, spelling, and punctuation that were not noted in review of the chart prior to signing ED Disposition - Plan for ED Patient: Referrals: London Gupta MD [Primary Care Provider] -
[2019-04-01 10:03] LABS: Absolute Lymphocyte Count 0.82 X10^3/ul (0.83-4.51); Absolute Neutrophil Count 5.5 X10^3/uL (2.0-7.7); Basophil# 0.01 X10^3/uL; Basophil% 0.1 % (0-1); Eosinophil# 0.13 X10^3/uL; Eosinophils% 1.9 % (0-5); Hematocrit 39.8 % (40-54); Hemoglobin 13.4 g/dl (13.0-16.5); Lymphocyte # 0.82 X10^3/ul (4.0); Mean Corp Hgb Conc 33.7 g/gl (32-36); Mean Corpuscular Hgb 29.7 pg (27.0-32.0); Mean Corpuscular Volume 88.2 fL (80-94); Mean Platelet Vol. 9.8 fl (6.2-12.0); Monocyte# 0.33 X10^3/uL; Monocyte% 4.8 % (0-10); Neutrophil # 5.53 X10^3/uL (2.7-7.7); Neutrophil % 81.1 % (47-70); Platelet Count 183 K/mm3 (150-450); RBC Distribution Width CV 13.6 % (11.6-14.6); RBC Distribution Width SD 43.6 fl (35.1-43.9); Red Blood Count 4.51 M/mm3 (4.6-6.2); White Blood Count 6.8 K/mm3 (4.4-11.0)
[2019-04-01 10:04] LABS: POSITIVE COUNT NO; POSITIVE DIFFERENTIAL NO; POSITIVE MORPHOLOGY NO
[2019-04-01 10:22] LABS: ALB/GLOB Ratio 1.2 RATIO (0.9-2.4); AST(SGOT) 27 U/L (15-37); Alanine Aminotransfer ALT/SGPT 28 U/L (16-61); Albumin, Serum 3.5 g/dL (3.2-5.0); Alkaline Phosphatase 106 U/L (45-117); Anion Gap 6 (5-15); BUN 22 mg/dL (7-18); BUN/Creat Ratio 20.4 RATIO (10-20); Calcium,Total 8.6 mg/dL (8.5-10.1); Chloride 105 mmol/L (98-107); Creatinine, Serum 1.08 mg/dL (0.70-1.30); EST Glomerular Filtration Rate 70 mL/min (>60); Est Glom Filt Rate - Afr Amer 84 mL/min (>60); Estimated Creatinine Clearance 50.75 ml/min; Glucose 226 mg/dL (74-106); Potassium 3.9 mmol/L (3.5-5.1); Protein, Total 6.5 g/dL (6.4-8.2); Sodium Level 142 mmol/L (136-145)
--- NOTE | 2019-04-01 12:54 | HP.PCM_ITS ---
History of Present Illness Date of Admission: 04/01/19 Chief Complaint: unsteady gait The patient is a 78 year old M with past medical history as listed including a recent acute left MCA distribution CVA about 2 weeks ago. Was admitted through the ED on 04/01/2019 with a complaint of unsteady gait. According to patient and , symptoms started yesterday where they realize he was unstable on his feet and had an unsteady gait. He did not have any blurred vision, lightheadedness or dizziness, any chest pain, any nausea or vomiting. He did not seem to favor one particular side during ambulation. On his , he also had some mild weakness in his right upper extremity was eating yesterday but that subsequently resolved. Due to his recent stroke, they decided to come in for further work- up. Vitals in the ED showed blood pressure of 153/98 but was otherwise normal. CBC and BMP were unremarkable. Brain CT was negative. EKG showed no acute ST changes. He is being admitted to be managed for dysequilibrium and possible worsening stroke.[] Past Medical History Past Medical History (Chronic Problems): Chronic Problems (Last Reviewed 03/18/19 @ 20:41 by Raymundo Farrell MD) Presence of aortocoronary bypass graft (Chronic) CABG LAD to WOLF, SVG to RCA, SVG to lateral and ramus branches of CFX 06/19 Abnormal result of cardiovascular function study (Chronic) Stress test Premature ventricular contractions (Chronic) Encounter for long-term (current) use of other medications (Chronic) TIA (transient ischemic attack) (Chronic) Osteoporosis (Chronic) Hip pain, chronic (Chronic) DM type 2 (diabetes mellitus, type 2) (Chronic) CAD (coronary artery disease) (Chronic) CABG LAD to WOLF, SVG to RCA, SVG to lateral and ramus branches of CFX 06/19 S/P CABG x 4 (Chronic) HTN (hypertension) (Chronic) PMR (polymyalgia rheumatica) (Chronic) CVA (cerebral vascular accident) (Chronic) January of 2016 with extension in March of 2016 Rib fractures (Chronic) anterior left 4th and 5th ribs Left acetabular fracture (Chronic) Dyslipidemia (Chronic) Normochromic normocytic anemia (Chronic) Steroid dependent (Chronic) Medical History: Medical History (Last Reviewed 03/18/19 @ 20:41 by Raymundo Frarell MD) Premature ventricular contractions (Chronic) I49.3 TIA (transient ischemic attack) (Chronic) G45.9 DM type 2 (diabetes mellitus, type 2) (Chronic) E11.9 CAD (coronary artery disease) (Chronic) I25.10 CABG LAD to WOLF, SVG to RCA, SVG to lateral and ramus branches of CFX 06/19 CVA (cerebral vascular accident) (Chronic) I63.9 January of 2016 with extension in March of 2016 Dyslipidemia (Chronic) E78.5 Difficulty balancing R29.818 Fatigue R53.83 Heart disease I51.9 SOB (shortness of breath) R06.02 Shoulder pain M25.519 Allergies codeine Allergy (Verified 04/01/19 09:21) Hives gabapentin Allergy (Verified 04/01/19 09:21) Rash hydrocodone bitartrate [From Vicodin] Allergy (Verified 04/01/19 09:21) Rash oxycodone [From OxyContin] Allergy (Verified 04/01/19 09:21) Rash oxycodone HCl [From Percocet] Allergy (Verified 04/01/19 09:21) Hives Penicillins [PCN] Allergy (Verified 04/01/19 09:21) Rash Sulfa (Sulfonamide Antibiotics) Allergy (Verified 04/01/19 09:21) Rash tramadol Allergy (Verified 04/01/19 09:21) Unknown glyburide Adverse Reaction (Verified 04/01/19 09:21) Diarrhea metformin Adverse Reaction (Verified 04/01/19 09:21) Diarrhea Home Medications: Ambulatory Orders Medication Instructions Recorded Insulin Glargine [Lantus SoloStar 7 units SC DAILY 09/28/16 Pen] alfalfa tablet 1 tab PO BID 11/29/17 Calcium Carbonate/Vitamin D3 1 tab PO BID MDD bones 03/18/19 [Calcium 600-Vit D3 200 Tablet] Carvedilol [Coreg (Beta Zenon)] 3.125 mg PO BID 03/18/19 Clopidogrel Bisulfate [Plavix] 75 mg PO DAILY 03/18/19 Multivitamin [Daily Татьяна] 1 tab PO DAILY 03/18/19 Pramipexole Di-HCl [Mirapex] 1.5 mg PO QHS 03/18/19 Prednisone 5 mg PO DAILY 03/18/19 Aspirin [Aspirin, Baby] 81 mg PO DAILY@0800 tab.chew 03/19/19 Atorvastatin Calcium [Lipitor] 40 mg PO QHS #30 tablet 03/19/19 Surgical History: Surgical History (Last Reviewed 03/18/19 @ 20:41 by Raymundo Farrell MD) Presence of aortocoronary bypass graft (Chronic) Z95.1 CABG LAD to WOLF, SVG to RCA, SVG to lateral and ramus branches of CFX 06/19 Surgical History: cholecystectomy, coronary bypass surgery, total hip arthroplasty - left x 2, - - right partial lung removal Psychiatric History: No pertinent psych hx Smoking Status: Never smoker - *Family History Maternal Family History: Family History (Last Reviewed 03/19/19 @ 11:27 by Aime Sanders MD) Father No problems noted. Sister Leukemia History Items: No pertinent history - in her 80's Paternal Family History: Family History (Last Reviewed 03/19/19 @ 11:27 by Aime Sanders MD) Father No problems noted. Sister Leukemia History Items: No pertinent history - age 99 Review of Systems Constitutional: Denies: Chills, Fever, Malaise, Weakness, Weight Change, Fatigue Eyes: Denies: Blurred vision, Vision Change HEENT: Denies: Head Aches, Sinus Congestion, Sinus Drainage Cardiovascular: Denies: Chest Pain, Edema, Palpitations Respiratory: Denies: Cough, Shortness of Breath, Shortness of breath at rest, Shortness of breath upon exertion, Sputum production Gastrointestinal: Denies: Abdominal Pain, Nausea, Vomiting Genitourinary: Denies: Dysuria Musculoskeletal: Denies: Joint Pain, Joint Tenderness Skin: Denies: Rash, Wounds Neurological: Reports: Balance problems, Incoordination. Denies: Blurred vision, Double vision, Change in Speech, Slurred speech, Confusion, Difficulty swallowing, Focal weakness, Numbness, Tingling, Tremor, Seizures Psychiatric: Denies: Anxiety, Depression, Homicidal Ideations, Suicidal Ideations Hematologic/ Lymphatic: Denies: Easy Bruising, Easy Bleeding VTE Information - Inpt Only VTE Present on Admission: No VTE Pharm Prophylaxis ordered?: Yes - Physical Exam General: Alert, Oriented x3, Cooperative, No apparent distress HEENT: Atraumatic, PERRLA, EOMI, Normocephalic Oral: Moist Mucosa Neck: Supple, No JVD, Negative Carotid Bruits Lungs: Clear to auscultation, Normal air movement, No rhonchi, No wheeze, No rales Cardiovascular: Regular rate, Regular Rhythm, Normal S1, Normal S2, No murmurs Abdomen: Bowel Sounds Present, Soft, Non Tender, Non-Distended, No Hepato- splenomegaly Extremities: No clubbing, No cyanosis, No edema, Capillary Refill Less than 3 Seconds Skin: No rashes, No breakdown Musculoskeletal: No Tenderness to Palpation of Joints or Extremities Lymphatic: No Cervical, Supraclavicular, or Inguinal Adenopathy Neurological: Cranial nerves II-XII grossly intact, Deep Tendon Reflexes 2+/4 and Symmetrical, Motor Exam 5/5 strength throughout, Sensory exam intact to light touch and pain, Coordination normal - NIHSS was 0 during review Psych/Mental Status: Normal Affect, Appropriate, Alert and oriented to time, place, person, mood and affect Vital Signs Temp Pulse Resp BP Pulse Ox 98.4 F 74 18 153/98 H 99 04/01/19 09:18 04/01/19 11:44 04/01/19 11:44 04/01/19 11:44 04/01/19 11:44 Oxygen Delivery Method Room Air Weight: 145 lb Body Mass Index (BMI) 22.0 Finger Stick Blood Glucose 173 Laboratory Tests Past 24 Hrs 04/01/19 04/01/19 09:35 09:35 WBC 6.8 RBC 4.51 L Hgb 13.4 Hct 39.8 L MCV 88.2 MCH 29.7 MCHC 33.7 RDW 13.6 RDW Differential 43.6 Plt Count 183 MPV 9.8 Immature Gran % (Auto) 0.100 Neut % (Auto) 81.1 H Lymph % (Auto) 12.0 L [place] % (Auto) 4.8 Eos % (Auto) 1.9 Baso % (Auto) 0.1 Absolute Neuts (auto) 5.5 Absolute Lymphs (auto) 0.82 L Total Counted Not Reportable Sodium 142 Potassium 3.9 Chloride 105 Carbon Dioxide 31.0 Anion Gap 6 BUN 22 H Creatinine 1.08 Estim Creat Clear Calc 50.75 Est GFR (MDRD) Af Amer 84 Est GFR (MDRD) Non-Af 70 BUN/Creatinine Ratio 20.4 H Glucose 226 H Calcium 8.6 Total Bilirubin 0.80 AST 27 ALT 28 Alkaline Phosphatase 106 Total Protein 6.5 Albumin 3.5 Globulin 3.0 Albumin/Globulin Ratio 1.[address] 04/01/19 09:54 IMPRESSION: Chronic involutional changes of the brain. No acute hemorrhage or significant interval change Electronically Signed: Kem Hampton MD at 10:40 EDT , Service support , Assessment/Plan All Active Problems (Last Reviewed 03/18/19 @ 20:41 by Raymundo Farrell MD) CVA (cerebral vascular accident) (Acute) Stroke-like symptoms (Acute) Bronchitis (Acute) Nausea & vomiting (Resolved) numbness on left side of neck (Resolved) 6-year-old male admitted with a complaint of gait instability. 1. Gait imbalance, to r/o stroke * recently had a left MCA distribution stroke * now says he was unstable on his feet yesterday;' didnt have any falls * admit to PCU with telemetry * NIHSS was 0 during review * CT brain showed no acute intracranial process * Brain MRI done during previous admission on 03/19/2019 showed a 2.8 x 0.7 cm infarct in the left frontoparietal lobe and periventricular white matter corresponding to the left MCA vascular territory. There are additional punctate foci of acute infarct in the left parietal lobe periventricular white matter and left internal capsule anterior limb. * MRA of the head and neck showed focal high-grade stenosis of the left M1 segment with reconstitution of left M1 bifurcation, M2 and M3 segments those these are somewhat diminutive and not new. * Echo(03/19/19): EF of 60% with segmental dysfunction and preserved ejection fraction and inferobasal akinesia, mid inferior and mid inferoseptal and mid anteroseptal hypokinesia. * neurochecks * PT/OT ocnsult * for MRI of brain tomorrow * neurology consult * continue aspirin and plavix and high intensity statin * 2. Hypertension: On carvedilol 3.25 g twice daily 3. Polymyalgia rheumatica: Stable. On prednisone 5 mg daily. 4. Diabetes mellitus: On insulin lantus 7 units daily. Checks his at bedtime. Insulin sliding scale. DVT prophylaxis: lovenox Code Visit OBSV E&M: [id number] Initial observation care L3
[2019-04-01 17:35] LABS: Bedside Glucose 224 mg/dL (70-110)
[2019-04-01] MEDS: Insulin Lispro 100 UNIT/ML INSULN.PEN SQ ×2 (17:36→21:06)
[2019-04-01] MEDS: Calcium Carb/Vitamin D 1 TABLET Tablet PO (17:36)
[2019-04-01 19:34] LABS: Magnesium 1.9 mg/dL (1.6-2.6); Potassium 4.1 mmol/L (3.5-5.1)
[2019-04-01] MEDS: Carvedilol 3.125 MG TABLET PO (21:06)
[2019-04-01] MEDS: Atorvastatin Calcium 40 MG Tablet PO (21:07)
[2019-04-01] MEDS: Pramipexole Di-HCl 0.5 MG Tablet 1.5 MG PO (21:07)
[2019-04-01 22:00] LABS: Bedside Glucose 178 mg/dL (70-110)
[2019-04-02 02:05] VITALS: BP 131/81; PULSE 74; RESP 16; TEMP 37.1; O2SAT 93
[2019-04-02 02:58] VITALS: PULSE 70
[2019-04-02 05:41] LABS: Absolute Lymphocyte Count 1.13 X10^3/ul (0.83-4.51); Absolute Neutrophil Count 5.3 X10^3/uL (2.0-7.7); Basophil# 0.03 X10^3/uL; Basophil% 0.4 % (0-1); Eosinophil# 0.16 X10^3/uL; Eosinophils% 2.2 % (0-5); Hemoglobin 14.2 g/dl (13.0-16.5); Lymphocyte # 1.13 X10^3/ul (4.0); Lymphocyte % 15.7 % (19-41); Mean Corp Hgb Conc 34.6 g/gl (32-36); Mean Corpuscular Hgb 30.1 pg (27.0-32.0); Mean Corpuscular Volume 86.9 fL (80-94); Mean Platelet Vol. 9.8 fl (6.2-12.0); Monocyte# 0.53 X10^3/uL; Monocyte% 7.4 % (0-10); Neutrophil # 5.33 X10^3/uL (2.7-7.7); Neutrophil % 74.2 % (47-70); Platelet Count 195 K/mm3 (150-450); RBC Distribution Width CV 13.5 % (11.6-14.6); RBC Distribution Width SD 41.4 fl (35.1-43.9); Red Blood Count 4.72 M/mm3 (4.6-6.2); White Blood Count 7.2 K/mm3 (4.4-11.0)
[2019-04-02 05:50] LABS: Anion Gap 7 (5-15); BUN 22 mg/dL (7-18); BUN/Creat Ratio 20.4 RATIO (10-20); Calcium,Total 8.7 mg/dL (8.5-10.1); Chloride 105 mmol/L (98-107); Creatinine, Serum 1.08 mg/dL (0.70-1.30); EST Glomerular Filtration Rate 70 mL/min (>60); Est Glom Filt Rate - Afr Amer 84 mL/min (>60); Estimated Creatinine Clearance 50.43 ml/min; Glucose 122 mg/dL (74-106); Potassium 3.9 mmol/L (3.5-5.1); Sodium Level 141 mmol/L (136-145)
[2019-04-02 06:25] LABS: POSITIVE COUNT NO; POSITIVE DIFFERENTIAL NO; POSITIVE MORPHOLOGY NO
[2019-04-02 06:28] VITALS: BP 162/91; PULSE 72; RESP 18; TEMP 36.4; O2SAT 95
[2019-04-02 07:00] VITALS: PULSE 69
[2019-04-02 07:06] LABS: Bedside Glucose 134 mg/dL (70-110)
--- NOTE | 2019-04-02 08:15 | MRI_ITS ---
STUDY: MRI BRAIN WITHOUT CONTRAST REASON FOR EXAM: Male, 78 years old. Vertigo and unsteady gait TECHNIQUE: Standardized multiplanar fat and water weighted pulse sequences were obtained. COMPARISON: Brain MRI 03/19/2019. FINDINGS: Again seen is a linear region of restricted diffusion in the left frontoparietal lobe periventricular white matter corresponding to the left MCA vascular territory, not significantly changed from prior exam. Previously seen focus of restricted diffusion in the left parietal lobe periventricular white matter has mildly increased in size now measuring approximately 9 x 6 mm, previously 3 mm. Stable focus of restricted diffusion in the left internal capsule anterior limb. No intracranial hemorrhage. There is mild cerebral atrophy with widening of the extra-axial spaces and ventricular dilatation. There are multiple white matter hyperintensities, distributed throughout the deep white matter tracts of the cerebral hemispheres, consistent with moderate chronic white matter ischemic changes. Again seen is chronic infarct and encephalomalacia of the inferior left cerebellum. Chronic, small right basal ganglia lacunar infarcts. Normal bilateral basal ganglia. Normal thalami. There is no extra-axial fluid accumulation. Normal flow voids within the major intracranial circulation suggesting patency by spin echo criteria. Normal sella turcica, pituitary gland, infundibular stalk, optic chiasm and hypothalamus. Normal tectal plate and pineal gland. Normal midbrain, dhara and medulla. Normal cerebellum. Normal basal cisterns. Normal bilateral temporal bones. Normal bilateral internal auditory canals. No demonstrated orbital abnormality, within the constraints of a routine brain study. Normal visualized paranasal sinuses. Normal calvarium and skull base. Normal visualized soft tissue structures. Normal visualized upper cervical spine. MRI/Brain without Contrast IMPRESSION: Previously seen focus of acute infarct in the left parietal lobe periventricular white matter has mildly increased in size now measuring approximately 9 x 6 mm, previously 3 mm. Otherwise, no significant interval change in the previously seen regions of left frontoparietal and left internal capsule acute infarcts. No new acute infarct. No intracranial hemorrhage. Electronically Signed: Maru Mendoza, at 10:20 EDT Tel , Service support ,
[2019-04-02] MEDS: Carvedilol 3.125 MG TABLET PO (09:56)
[2019-04-02] MEDS: Multivitamins,Therapeutic Tablet 1 TABLET PO (09:56)
[2019-04-02] MEDS: predniSONE 5 MG Tablet PO (09:56)
[2019-04-02] MEDS: Calcium Carb/Vitamin D 1 TABLET Tablet PO (09:56)
[2019-04-02] MEDS: Aspirin 81 MG TAB.CHEW PO (09:56)
[2019-04-02] MEDS: Clopidogrel Bisulfate 75 MG Tablet PO (09:57)
[2019-04-02] MEDS: Enoxaparin 40 MG/0.4 ML Syringe SC (09:57)
[2019-04-02 10:00] VITALS: BP 135/71; PULSE 74; RESP 16; TEMP 36.4; O2SAT 96
[2019-04-02] MEDS: Insulin Lispro 100 UNIT/ML INSULN.PEN SQ (11:27)
--- NOTE | 2019-04-02 11:55 | CON.PCM_ITS ---
Reason for Consult Date of Consultation: 04/02/19 Reason for Consultation: confusion and right sided weakness History of Present Illness: The patient is a 78 year old M admitted with new confusion and right sided weakness. reports symptoms resolved, initially started monday, two days ago, persisted so came to the hospital by car yesterday due to persistent symptoms. 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 per admit note:The patient is a 78 year old M with past medical history as listed including a recent acute left MCA distribution CVA about 2 weeks ago. Was admitted through the ED on 04/01/2019 with a complaint of unsteady gait. According to patient and , symptoms started yesterday where they realize he was unstable on his feet and had an unsteady gait. He did not have any blurred vision, lightheadedness or dizziness, any chest pain, any nausea or vomiting. He did not seem to favor one particular side during ambulation. On his , he also had some mild weakness in his right upper extremity was eating yesterday but that subsequently resolved. Due to his recent stroke, they decided to come in for further work-up. Vitals in the ED showed blood pressure of 153/98 but was otherwise normal. CBC and BMP were unremarkable. Brain CT was negative. EKG showed no acute ST changes. He is being admitted to be managed for dysequilibrium and possible worsening stroke. Past Medical History Past Medical History (Chronic Problems): Chronic Problems (Last Reviewed 03/18/19 @ 20:41 by Raymundo Farrell MD) Presence of aortocoronary bypass graft (Chronic) CABG LAD to WOLF, SVG to RCA, SVG to lateral and ramus branches of CFX 06/19 Abnormal result of cardiovascular function study (Chronic) Stress test Premature ventricular contractions (Chronic) Encounter for long-term (current) use of other medications (Chronic) TIA (transient ischemic attack) (Chronic) Osteoporosis (Chronic) Hip pain, chronic (Chronic) DM type 2 (diabetes mellitus, type 2) (Chronic) CAD (coronary artery disease) (Chronic) CABG LAD to WOLF, SVG to RCA, SVG to lateral and ramus branches of CFX 06/19 S/P CABG x 4 (Chronic) HTN (hypertension) (Chronic) PMR (polymyalgia rheumatica) (Chronic) CVA (cerebral vascular accident) (Chronic) January of 2016 with extension in March of 2016 Rib fractures (Chronic) anterior left 4th and 5th ribs Left acetabular fracture (Chronic) Dyslipidemia (Chronic) Normochromic normocytic anemia (Chronic) Steroid dependent (Chronic) Medical History: Medical History (Last Reviewed 03/18/19 @ 20:41 by Raymundo Farrell MD) Premature ventricular contractions (Chronic) I49.3 TIA (transient ischemic attack) (Chronic) G45.9 DM type 2 (diabetes mellitus, type 2) (Chronic) E11.9 CAD (coronary artery disease) (Chronic) I25.10 CABG LAD to WOLF, SVG to RCA, SVG to lateral and ramus branches of CFX 06/19 CVA (cerebral vascular accident) (Chronic) I63.9 January of 2016 with extension in March of 2016 Dyslipidemia (Chronic) E78.5 Difficulty balancing R29.818 Fatigue R53.83 Heart disease I51.9 SOB (shortness of breath) R06.02 Shoulder pain M25.519 Allergies codeine Allergy (Verified 04/01/19 09:21) Hives gabapentin Allergy (Verified 04/01/19 09:21) Rash hydrocodone bitartrate [From Vicodin] Allergy (Verified 04/01/19 09:21) Rash oxycodone [From OxyContin] Allergy (Verified 04/01/19 09:21) Rash oxycodone HCl [From Percocet] Allergy (Verified 04/01/19 09:21) Hives Penicillins [PCN] Allergy (Verified 04/01/19 09:21) Rash Sulfa (Sulfonamide Antibiotics) Allergy (Verified 04/01/19 09:21) Rash tramadol Allergy (Verified 04/01/19 09:21) Unknown glyburide Adverse Reaction (Verified 04/01/19 09:21) Diarrhea metformin Adverse Reaction (Verified 04/01/19 09:21) Diarrhea Home Medications: Ambulatory Orders Medication Instructions Recorded Insulin Glargine [Lantus SoloStar 7 units SC DAILY 09/28/16 Pen] alfalfa tablet 1 tab PO BID 11/29/17 Calcium Carbonate/Vitamin D3 1 tab PO BID MDD bones 03/18/19 [Calcium 600-Vit D3 200 Tablet] Carvedilol [Coreg (Beta Zenon)] 3.125 mg PO BID 03/18/19 Clopidogrel Bisulfate [Plavix] 75 mg PO DAILY 03/18/19 Multivitamin [Daily Татьяна] 1 tab PO QODAY 03/18/19 Pramipexole Di-HCl [Mirapex] 1.5 mg PO QHS 03/18/19 Prednisone 5 mg PO DAILY 03/18/19 Aspirin [Aspirin, Baby] 81 mg PO DAILY@0800 tab.chew 03/19/19 Atorvastatin Calcium [Lipitor] 40 mg PO QHS #30 tablet 03/19/19 Surgical History: Surgical History (Last Reviewed 03/18/19 @ 20:41 by Raymundo Farrell MD) Presence of aortocoronary bypass graft (Chronic) Z95.1 CABG LAD to WOLF, SVG to RCA, SVG to lateral and ramus branches of CFX 06/19 Surgical History: cholecystectomy, coronary bypass surgery, total hip arthroplasty - left x 2, - - right partial lung removal Psychiatric History: No pertinent psych hx Smoking Status: Never smoker - *Family History Maternal Family History: Family History (Last Reviewed 04/02/19 @ 11:54 by Aime Sanders MD) Father No problems noted. Sister Leukemia History Items: No pertinent history - in her 80's Paternal Family History: Family History (Last Reviewed 04/02/19 @ 11:54 by Aime Sanders MD) Father No problems noted. Sister Leukemia History Items: No pertinent history - age 99 Review of Systems Constitutional: Denies: Chills, Fever, Weight Change HEENT: Denies: Head Aches, Sinus Congestion, Sinus Drainage Cardiovascular: Denies: Chest Pain, Palpitations Respiratory: Denies: Cough, Shortness of breath at rest, Sputum production Gastrointestinal: Denies: Abdominal Pain, Nausea, Vomiting Genitourinary: Denies: Dysuria Musculoskeletal: Denies: Joint Pain, Joint Tenderness Skin: Denies: Rash, Wounds Neurological: Denies: Numbness, Tingling, Focal weakness Psychiatric: Denies: Anxiety, Depression, Homicidal Ideations, Suicidal Ideations Hematologic/ Lymphatic: Denies: Easy Bruising, Easy Bleeding - Physical Exam General: Alert, Oriented x3, Cooperative, No apparent distress HEENT: Atraumatic, PERRLA, EOMI Neurological: Cranial nerves II-XII grossly intact Psych/Mental Status: Normal Affect Vital Signs Temp Pulse Resp BP Pulse Ox 36.4 C L 74 16 135/71 H 96 04/02/19 10:00 04/02/19 10:00 04/02/19 10:00 04/02/19 10:00 04/02/19 10:00 Oxygen Delivery Method Room Air Weight: 65.363 kg Body Mass Index (BMI) 21.9 Finger Stick Blood Glucose 173 Intake and Output for Last 24 Hours 03/31/19 04/01/19 04/02/19 23:59 23:59 23:59 Intake Total 360 / 360 Balance 360 / 360 Laboratory Tests Past 24 Hrs 04/01/19 04/02/19 04/02/19 19:10 05:20 05:20 WBC 7.2 RBC 4.72 Hgb 14.2 Hct 41.0 MCV 86.9 MCH 30.1 MCHC 34.6 RDW 13.5 RDW Differential 41.4 Plt Count 195 MPV 9.8 Immature Gran % (Auto) 0.100 Neut % (Auto) 74.2 H Lymph % (Auto) 15.7 L [place] % (Auto) 7.4 Eos % (Auto) 2.2 Baso % (Auto) 0.4 Absolute Neuts (auto) 5.3 Absolute Lymphs (auto) 1.13 Total Counted Not Reportable Sodium 141 Potassium 4.1 3.9 Chloride 105 Carbon Dioxide 29.0 Anion Gap 7 BUN 22 H Creatinine 1.08 Estim Creat Clear Calc 50.43 Est GFR (MDRD) Af Amer 84 Est GFR (MDRD) Non-Af 70 BUN/Creatinine Ratio 20.4 H Glucose 122 H Calcium 8.7 Magnesium 1.9 POC Glucose 04/02/19 04/01/19 04/01/19 06:35 21:02 17:01 POC Glucose 134 H 178 H 224 H Current Home Med List Medication Instructions Recorded Confirmed Type Insulin Glargine [Lantus SoloStar 7 units SC DAILY 09/28/16 04/01/19 History Pen] alfalfa tablet 1 tab PO BID 11/29/17 04/01/19 History Calcium Carbonate/Vitamin D3 1 tab PO BID MDD bones 03/18/19 04/01/19 History [Calcium 600-Vit D3 200 Tablet] Carvedilol [Coreg (Beta Zenon)] 3.125 mg PO BID 03/18/19 04/01/19 History Clopidogrel Bisulfate [Plavix] 75 mg PO DAILY 03/18/19 04/01/19 History Multivitamin [Daily Татьяна] 1 tab PO QODAY 03/18/19 04/01/19 History Pramipexole Di-HCl [Mirapex] 1.5 mg PO QHS 03/18/19 04/01/19 History Prednisone 5 mg PO DAILY 03/18/19 04/01/19 History Aspirin [Aspirin, Baby] 81 mg PO DAILY@0800 tab.chew 03/19/19 04/01/19 Rx Atorvastatin Calcium [Lipitor] 40 mg PO QHS #30 tablet 03/19/19 04/01/19 Rx Current Medications Aspirin 81 mg 04/02/19 08:00 04/02/19 09:56 Aspirin, Baby PO 81 mg DAILY@0800 JAVIER Administration Atorvastatin Calcium 40 mg 04/01/19 22:00 04/01/19 21:07 Lipitor PO 40 mg QHS JAVIER Administration Calcium/Vitamin D 1 tablet 04/01/19 17:00 04/02/19 09:56 [place] 500mg + D PO 1 tablet BIDCM JAVIER Administration Carvedilol 3.125 mg 04/01/19 22:00 04/02/19 09:56 Coreg PO 3.125 mg BID JAVIER Administration Clopidogrel Bisulfate 75 mg 04/02/19 10:00 04/02/19 09:57 Plavix PO 75 mg DAILY JAVIER Administration Dextrose 0 gm 04/01/19 13:59 D50w Syringe IV X1 PRN Hypoglycemia Protocol Enoxaparin Sodium 40 mg 04/02/19 10:00 04/02/19 09:57 Lovenox SC 40 mg DAILY@1000 JAVIER Administration Glucagon 1 mg 04/01/19 13:59 IM .X1 PRN Hypoglycemia Insulin Glargine 7 units 04/02/19 10:00 04/02/19 09:56 Lantus ([facility]) SC 7 units DAILY JAVIER Administration Insulin Human Lispro 0 unit 04/01/19 16:00 04/02/19 11:27 Humalog Kwikpen ([facility]) SQ 4 units ACHS JAVIER Administration Protocol Multivitamins 1 tablet 04/02/19 08:00 04/02/19 09:56 Multivitamin PO 1 tablet DAILY@0800 JAVIER Administration Pramipexole Dihydrochloride 1.5 mg 04/01/19 22:00 04/01/19 21:07 Mirapex PO 1.5 mg QHS JAVIER Administration Prednisone 5 mg 04/02/19 08:00 04/02/19 09:56 PO 5 mg DAILY@0800 JAVIER Administration Sodium Chloride 5 - 15 ml 04/01/19 14:00 IV UD PRN SALINE FLUSH mri reviewed, no change compared to mri 03/19 which showed a small left subcortical acute infarct Assessment/Plan All Active Problems (Last Reviewed 03/18/19 @ 20:41 by Raymundo Farrell MD) CVA (cerebral vascular accident) (Acute) Stroke-like symptoms (Acute) Bronchitis (Acute) Nausea & vomiting (Resolved) numbness on left side of neck (Resolved) subacute left subcortical infarct no change on mri compared to 03/19/19, suspect overexertion as trigger for remanifestation continue same meds (asa, plavix, statin) avoid overexertion pt/ot ok to dc if ambulating safely
[2019-04-02 12:10] LABS: Bedside Glucose 233 mg/dL (70-110)
--- NOTE | 2019-04-02 12:55 | CASEMGMT ---
ABDULAZIZ JAMES MANNEQUIN MOUNTER CM to room to meet with patient for initial transition planning/care coordination assessment. ABDULAZIZ JAMES introduced self and role at [facility]. Pt voices understanding and consents to assessment at this time. Pt sitting up in chair in room in no distress at this time. @ bedside. Pt is A/O at this time and answers all questions appropriately. Care providers, pharmacy, and demographics verified/updated at this time. PCP: Dr London Gupta Specialists: Tommy--neurology, Rina--cardiology Preferred Pharmacy: [facility] Insurance: MCR, [employer] Accidental Prescription Benefit: [employer] Living Will/HPOA: Has both LW and HCPOA, who is his daughter, Bee Steiner. LNOK: Living Arrangements: Lives with in old 3-story farmhouse with and attic and a basement. Pt states able to navigate stairs okay. Does not go up to the attic. assists pt with bathing/dressing, meals, cleaning, finances, medications, and appts. Transportation: DME: States has the following DME: shower chair, hand held shower, cane, walker, and glucometer which he states works well and he has all the needed supplies for it. Pt states no need for further DME at this time. HHC/SNF: Currently goes to [facility] for therapy 2-3 days/week. Pt wishes to return home and states has no concerns with going home at time of discharge and plans to continue out-pt therapy @ [facility]. CM to follow for any discharge planning/needs. Pt voices no further concerns/needs at this time. Advised pt to ask for CM if any further questions/concerns/needs arise. Voices understanding. PLAN: Home w/continuation of out-pt therapy @ [facility]. Suzy SUÁREZ RN, CM
--- NOTE | 2019-04-02 13:26 | DS.PCM_ITS ---
Discharge Date and Diagnosis Date of Admission: 04/01/19 Date of Discharge: 04/02/19 - Primary Discharge Diagnosis CVA - Secondary Discharge Diagnosis Chronic Problems (Last Reviewed 03/18/19 @ 20:41 by Raymundo Farrell MD) Presence of aortocoronary bypass graft (Chronic) CABG LAD to WOLF, SVG to RCA, SVG to lateral and ramus branches of CFX 06/19 Abnormal result of cardiovascular function study (Chronic) Stress test Premature ventricular contractions (Chronic) Encounter for long-term (current) use of other medications (Chronic) TIA (transient ischemic attack) (Chronic) Osteoporosis (Chronic) Hip pain, chronic (Chronic) DM type 2 (diabetes mellitus, type 2) (Chronic) CAD (coronary artery disease) (Chronic) CABG LAD to WOLF, SVG to RCA, SVG to lateral and ramus branches of CFX 06/19 S/P CABG x 4 (Chronic) HTN (hypertension) (Chronic) PMR (polymyalgia rheumatica) (Chronic) CVA (cerebral vascular accident) (Chronic) January of 2016 with extension in March of 2016 Rib fractures (Chronic) anterior left 4th and 5th ribs Left acetabular fracture (Chronic) Dyslipidemia (Chronic) Normochromic normocytic anemia (Chronic) Steroid dependent (Chronic) Hospital Course and Treatment Imaging Results: 04/02/19 08:15 Brain without Contrast [MRI] Urgent neurology- Dr Calderon Operations: None Procedures: None Summary of Care Provided: The patient is a 78 year old M with past medical history as listed including a recent acute left MCA distribution CVA about 2 weeks ago. Was admitted through the ED on 04/01/2019 with a complaint of unsteady gait. According to patient and , symptoms started yesterday where they realize he was unstable on his feet and had an unsteady gait. He did not have any blurred vision, lightheadedness or dizziness, any chest pain, any nausea or vomiting. He did not seem to favor one particular side during ambulation. On his , he also had some mild weakness in his right upper extremity was eating yesterday but that subsequently resolved. Due to his recent stroke, they decided to come in for further work- up. Vitals in the ED showed blood pressure of 153/98 but was otherwise normal. CBC and BMP were unremarkable. Brain CT was negative. EKG showed no acute ST changes. He was admitted to be managed for dysequilibrium and possible worsening stroke. Neurology was consulted and he got an MRI which showed increasing previously seen foci of acute infarct in the left parietal lobe which had increased from 3 mm to 9 x 6 mm. Neurology reviewed patient did not recommend any further management and wanted to continue current antiplatelets. He remained stable and was discharged home on 04/02/2019 with home health care and for outpatient physical therapy. He is follow-up with his primary care doctor and neurology within 1 week. Patient seen and examined prior to discharge. He had no complaints and said he was a bit unsteady on his feet still he had been able to go to the bathroom. Review of systems otherwise negative. Labs and vitals reviewed. Home medication reviewed and reconciled. o/e: Vital Signs Height 5 ft 8 in Weight: 144 lb 1.6 oz Weight in Pounds 144.1 lbs Pulse Ox 98 Temperature 97.6 F Pulse Rate 64 Respiratory Rate 18 Blood Pressure [BP] 123/77 Blood Pressure 146/83 Blood Pressure Position [BP] Semi-Fowlers Blood Pressure Position Sitting General: Alert, Oriented x3, Cooperative, No apparent distress HEENT: Atraumatic, PERRLA, EOMI, Normocephalic Oral: Moist Mucosa Neck: Supple, No JVD, Negative Carotid Bruits Lungs: Clear to auscultation, Normal air movement, No rhonchi, No wheeze, No rales Cardiovascular: Regular rate, Regular Rhythm, Normal S1, Normal S2, No murmurs Abdomen: Bowel Sounds Present, Soft, Non Tender, Non-Distended, No Hepato- splenomegaly Extremities: No clubbing, No cyanosis, No edema, Capillary Refill Less than 3 Seconds Skin: No rashes, No breakdown Musculoskeletal: No Tenderness to Palpation of Joints or Extremities Lymphatic: No Cervical, Supraclavicular, or Inguinal Adenopathy Neurological: Cranial nerves II-XII grossly intact, Deep Tendon Reflexes 2+/4 and Symmetrical, Motor Exam 5/5 strength throughout, Sensory exam intact to light touch and pain, Coordination normal - NIHSS was 0 during review Psych/Mental Status: Normal Affect, Appropriate, Alert and oriented to time, place, person, mood and affect Plan as above. He is to continue on his aspirin, Plavix and statin. - Physical Exam Vital Signs Temp Pulse Resp BP Pulse Ox 97.6 F L 74 16 135/71 H 96 04/02/19 10:00 04/02/19 10:00 04/02/19 10:00 04/02/19 10:00 04/02/19 10:00 Oxygen Delivery Method Room Air Weight: 144 lb 1.6 oz Body Mass Index (BMI) 21.9 Finger Stick Blood Glucose 173 Intake and Output for Last 24 Hours 03/31/19 04/01/19 04/02/19 23:59 23:59 23:59 Intake Total 360 / 360 360 / 360 Balance 360 / 360 360 / 360 Laboratory Tests Past 24 Hrs 04/01/19 04/02/19 04/02/19 19:10 05:20 05:20 WBC 7.2 RBC 4.72 Hgb 14.2 Hct 41.0 MCV 86.9 MCH 30.1 MCHC 34.6 RDW 13.5 RDW Differential 41.4 Plt Count 195 MPV 9.8 Immature Gran % (Auto) 0.100 Neut % (Auto) 74.2 H Lymph % (Auto) 15.7 L [place] % (Auto) 7.4 Eos % (Auto) 2.2 Baso % (Auto) 0.4 Absolute Neuts (auto) 5.3 Absolute Lymphs (auto) 1.13 Total Counted Not Reportable Sodium 141 Potassium 4.1 3.9 Chloride 105 Carbon Dioxide 29.0 Anion Gap 7 BUN 22 H Creatinine 1.08 Estim Creat Clear Calc 50.43 Est GFR (MDRD) Af Amer 84 Est GFR (MDRD) Non-Af 70 BUN/Creatinine Ratio 20.4 H Glucose 122 H Calcium 8.7 Magnesium 1.9 POC Glucose 04/02/19 04/02/19 04/01/19 11:25 06:35 21:02 POC Glucose 233 H 134 H 178 H 04/01/19 17:01 POC Glucose 224 H Discharge Diet: Low fat/ Low Cholesterol Discharge Activity: Return to Normal Activity Weight Bearing Status: Weight bearing as tolerated Call your doctor if you observe: Fever of 101 or Higher, Numbness or Tingling Home Medications: Medications to take at Discharge Insulin Glargine [Lantus SoloStar Pen] 7 units SC DAILY 09/28/16 alfalfa tablet 1 tab PO BID 11/29/17 Calcium Carbonate/Vitamin D3 [Calcium 600-Vit D3 200 Tablet] 1 tab PO BID MDD bones 03/18/19 Carvedilol [Coreg (Beta Zenon)] 3.125 mg PO BID 03/18/19 Clopidogrel Bisulfate [Plavix] 75 mg PO DAILY 03/18/19 Multivitamin [Daily Татьяна] 1 tab PO QODAY 03/18/19 Pramipexole Di-HCl [Mirapex] 1.5 mg PO QHS 03/18/19 Prednisone 5 mg PO DAILY 03/18/19 Aspirin [Aspirin, Baby] 81 mg PO DAILY@0800 tab.chew 03/19/19 Atorvastatin Calcium [Lipitor] 40 mg PO QHS #30 tablet 03/19/19 Primary Care Physician: London Gupta MD [Primary Care Provider] - Please follow up with your Primary Care Physician in: one week Please Follow Up With: Aime Sanders MD When: 2-3 weeks Patient Instructions: Discharge Instructions for Stroke Disposition: Home with Home Health Minutes spent on discharge:: 45 Patient Condition:: Stable Medical Necessity - Tobacco Use Smoking Status: Never smoker Meaningful Use Info Meaningful Use Diagnoses (Choose all that apply): None applicable Code Visit Inpatient E&M: 57776 Disch Hosp
--- NOTE | 2019-04-02 13:26 | DCINST_ITS ---
You will use the following diet at home:: Cardiac Your food should be the consistency of: Regular Your liquids should be the consistency of: Regular/Thin Discharge Activity: Return to Normal Activity Weight Bearing Status: Weight bearing as tolerated Call your doctor if you observe: Fever of 101 or Higher, Numbness or Tingling Instructions: Discharge Instructions for Stroke Allergies/Adverse Reactions: Allergies codeine Allergy (Verified 04/01/19 09:21) Hives gabapentin Allergy (Verified 04/01/19 09:21) Rash hydrocodone bitartrate [From Vicodin] Allergy (Verified 04/01/19 09:21) Rash oxycodone [From OxyContin] Allergy (Verified 04/01/19 09:21) Rash oxycodone HCl [From Percocet] Allergy (Verified 04/01/19 09:21) Hives Penicillins [PCN] Allergy (Verified 04/01/19 09:21) Rash Sulfa (Sulfonamide Antibiotics) Allergy (Verified 04/01/19 09:21) Rash tramadol Allergy (Verified 04/01/19 09:21) Unknown glyburide Adverse Reaction (Verified 04/01/19 09:21) Diarrhea metformin Adverse Reaction (Verified 04/01/19 09:21) Diarrhea Medications to take at Discharge Insulin Glargine [Lantus SoloStar Pen] 7 units SC DAILY 09/28/16 alfalfa tablet 1 tab PO BID 11/29/17 Calcium Carbonate/Vitamin D3 [Calcium 600-Vit D3 200 Tablet] 1 tab PO BID MDD bones 03/18/19 Carvedilol [Coreg (Beta Zenon)] 3.125 mg PO BID 03/18/19 Clopidogrel Bisulfate [Plavix] 75 mg PO DAILY 03/18/19 Multivitamin [Daily Татьяна] 1 tab PO QODAY 03/18/19 Pramipexole Di-HCl [Mirapex] 1.5 mg PO QHS 03/18/19 Prednisone 5 mg PO DAILY 03/18/19 Aspirin [Aspirin, Baby] 81 mg PO DAILY@0800 tab.chew 03/19/19 Atorvastatin Calcium [Lipitor] 40 mg PO QHS #30 tablet 03/19/19 Primary Care Physician: London Gupta MD [Primary Care Provider] - Please follow up with your Primary Care Physician in: one week Test Results: Test results from this visit will be discussed in further detail at your follow- up appointment, if applicable. Please Follow Up With: Aime Sanders MD When: 2-3 weeks Proposed Discharge Date: 04/02/19
[2019-04-02 14:47] VITALS: BP 146/83; PULSE 64; RESP 18; TEMP 36.4; O2SAT 98
== END 2019-04-02 13:25 | disposition home or self-care (01) ==
LOC: ED 10:38 → PCU 13:07
PROVIDERS: Admitting Provider Student in an Organized Health Care Education/Training Program; Emergency Provider Emergency Medicine; Family Provider Family Medicine; PCP Family Medicine; Referring Provider Student in an Organized Health Care Education/Training Program; Visit Provider Student in an Organized Health Care Education/Training Program
DX: R53.1 Weakness (principal); R26.81 Unsteadiness on feet; E11.9 Type 2 diabetes mellitus without complications; I25.10 Atherosclerotic heart disease of native coronary artery without angina pectoris; Z95.1 Presence of aortocoronary bypass graft; E78.5 Hyperlipidemia, unspecified; Z79.4 Long term (current) use of insulin; Z79.899 Other long term (current) drug therapy; Z79.02 Long term (current) use of antithrombotics/antiplatelets; Z79.82 Long term (current) use of aspirin; I10 Essential (primary) hypertension; Z79.52 Long term (current) use of systemic steroids; M35.3 Polymyalgia rheumatica; Z86.73 Personal history of transient ischemic attack (TIA), and cerebral infarction without residual deficits
CPT/HCPCS: 36415; 70450; 70551; 80048; 80053; 82962; 83735; 84132; 85025; 93005; 96360; 96372; 97162; 97166; 99218; 99285; J7030; J7040; A4216; G0378

== ENCOUNTER → 2019-06-11 | Outpatient (CLI) | payer MEDICARE, OTHER, SELFPAY ==
[2019-04-04 10:23] VITALS: BMI 22.0
--- NOTE | 2019-06-11 10:47 | STRESSREP_ITS ---
Stress Test Report Date: 06-11-19 Procedure: Pharmacologic stress nuclear imaging study Indications: CAD; CABG NH; PVCs: Shortness of breath/dyspnea; fatigue Consent: Per the patient Procedure: The patient underwent pharmacologic (Regadenoson) evaluation with a peak heart rate of 90 beats per minute (64 %predicted maximal heart rate) and a peak blood pressure of 142/78 mmHg. The baseline ECG demonstrated normal sinus rhythm. The peak pharmacologic ECG demonstrated no obvious ECG changes. There was a rare PVC during recovery. There was no complaint of chest discomfort during pharmacologic infusion or recovery. The examination was discontinued secondary to completion of protocol. Impression: 1. Pharmacologic (Regadenoson) evaluation 2. Peak pharmacologic ECG with no obvious ECG changes. 3. There was a rare PVC during recovery. 4. Nuclear images pending Myocardial perfusion imaging study: Technique: The patient was injected with 12.0 millicuries of technetium 99m Cardiolite and subsequently rest SPECT Cardiolite nuclear imaging was obtained in the horizontal long, vertical long, and short axis views. The patient underwent phar macologic (Regadenoson) evaluation with a peak heart rate of 90 beats per minute (64 % percent predicted maximal heart rate) and a peak blood pressure of 142/78 mmHg. The patient was injected with 36.0 millicuries of technetium 99m Cardiolite and subsequently stress SPECT Cardiolite nuclear imaging was obtained in the horizontal long, vertical long, and short axis views. A gated Cardiolite study at peak stress was obtained. Interpretation: Rest and stress SPECT Cardiolite nuclear imaging status post realignment, normalization, and attenuation correction demonstrate relative uniform tracer u ptake and myocardial perfusion appearing within normal limits. There is end systolic thickening and brightening. The gated Cardiolite study demonstrates myocardial thickening and inward wall motion. The reported LVEF is 54 %. Impression: 1. Rest and stress SPECT Cardiolite nuclear imaging demonstrate relative uniform tracer uptake and myocardial perfusion appearing within normal limits. 2. The gated Cardiolite study reports an LVEF of 54 %. This note was generated with [employer] software. It may contain incorrect words, spelling, and punctuation that were not noted in checking the note before signing.
== END | disposition home or self-care (01) ==
LOC: CVS 06:08
PROVIDERS: Family Provider Family Medicine; PCP Family Medicine; Referring Provider Internal Medicine Cardiovascular Disease; Visit Provider Internal Medicine Cardiovascular Disease
DX: I25.10 Atherosclerotic heart disease of native coronary artery without angina pectoris (principal); Z95.1 Presence of aortocoronary bypass graft
CPT/HCPCS: 78452; 93017; A9500; A4216; J2785

== ENCOUNTER 2019-06-28 10:30 | Outpatient (RCR) | payer MEDICARE, OTHER, SELFPAY ==
[2019-03-19 13:53] VITALS: BMI 22.4
--- NOTE | 2019-03-25 12:27 | HP.OTEVAL_ITS ---
Patient's Visit Information JADE CHAVIRA is a 78 year old M, referred to Occupational Therapy by London Gupta MD, with a diagnosis of Cerebral Infarction (CVA). Date of Evaluation: 03/25/19 Occupational Therapist: Jillian Lozano, OTR/L - Subjective Subjective: Maxim arrived for OT evaluation with , Erin. Maxim has PHMx significant for CVA s/p 3 years ago. He recently had CVA a week ago which was confirmed by MRI per report. He noted he ' just didn't feel right' and he noted if ?he wouldn't have been that he had previous CVA he wouldn't have gone to hospital?. Prior to most recent CVA he was climbing ladder and had fall forward to machine hitting head but not falling off ladder which is why he has bruise between his eyebrow. 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 He noted son and daughter are local if needed. - Objective Concerns: HE WAS REFERRED FOR OT EVALUATION BUT IS STILL DRIVING. PLEASE INDICATE IF FURTHER ASSESSMENT NEEDED TO BE COMPLETED BY [facility]?S OUTPATIENT DRIVING REHABILITATION FOR SAFETY PURPOSES. - ROM Shoulder: flexion R 0-67, L 0-68; abduction R 0-53, L 0-53 Elbow: WFL Forearm: WFL MP: WFL PIP: WFL DIP: WFL ROM Comments: L hand exhibits decreased coordination but is baseline and is able to make full composite fist. - Strength Shoulder: R 3/5, L 3/5 Elbow: flexion R 4+/5, L 4+/5; ext R 3/5, L 3+/5 Forearm: WFL Wrist: WFL Director Of Strategy & Mobile: flexed R 58, L 34; extended R 58, L 30 Lateral Pinch: R 12, L 15 Tripod Pinch: R 13, L 8 Tip-to-Tip Pinch: R 12, L 6 - Sensation Thumb: R 3.84, L 3.84 Index: R 3.22, L 3.84 Middle: R 3.84, L 3.84 Ring: R 3.61, L 3.22 Little: R 3.84, L 3.22 Kinesthesia: Abnormal - Right, Abnormal - Left - Cognitive Skills Follows Directions: Yes - Attention Attention: Normal - Nine Hole Peg Right: 45.93 s Left: 4 mins 13.84 s Comments: Increased difficulty with L hand;increased from baseline - In-Hand Manipulation Finger to Palm Translation: Normal - Right, Severe - Left Palm to Finger Translation: Normal - Right, Severe - Left Shift: Normal - Right, Severe - Left Rotation: Normal - Right, Severe - Left Comments: Noted increased deficits in L hand post most recent CVA. - Quick DASH-Disab of Arm,Shoulder& Hand Quick DASH Score: 30.0000 - Goals Goal:: Maxim to increased L UE strength by 10-15 lbs to promote increased ROM and strength needed to complete ADL/IADls by d/c. Maxim to increased BUE strength to 4+/5 for all measured movements 4/5 triasl 80% of the time to promote increased strength and endurance by d/c. Goal:: Maxim to increase B UE shoulder ROM by 10-15 degrees of B UE to promote increased ROM and mobility needed to promote increased particpation in ADLlIADLs by d/c. Goal:: Maxim to be able to manipulate small items like buttons, screws and bolts, etc. with B hands to promote increased ROM and dexterity needed to complete ADL/IADLs by d/c. Goal:: Maxim to be mod I to complete ADL/IADLs including farm -relatedtasks 4/5 trials 80% of the time to promote increased safety awareness and mobility by d/c. Goal:: Maxim to complete daily HEP to promote increased ROM, strength,and general ability to complete ADL/IADLS 4/5 trials 80% of the time by d/c. Goal:: Maxim to be mod I to recognize and complete safety training to promote increased safety awareness and decreased risk of further injury 4/5 trials 80% of the time by d/c. - Rehabilitation General Assessment: Jade Gonzalez Arrived with Erin for OT evaluation on is date of 03/24/19. He has PMHx significant for CVA three years ago in which he has L hand dominant and became R handed. He recently had CVA about a week ago and noted some increased in L sided weakness and dexterity deficits of L hand. 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 Prior to recent CVA he noted he fell while climbing up ladder. He did not fall to ground but did knock head against equipment. Safety concerns and concerns for strengthening, coordination, are also noted. Maxim would benefit from skilled OT services for 2x weekly appointment for 3 weeks to address ROM, Strength, safety awareness, FMC, Dexterity, and general ability to return to PLOF. Rehabilitation Potential: Good - Anticipated Interventions Anticipated Interventions: A/AAROM/PROM, Strengthening, Scar Care, Triggerpoint Release, Desensitization, Joint Protection/Energy Conservation, Ergonomic Education, Fine Motor Coord/Charles, Neuro Reeducation, Visual/Perceptual Skills, Cognitive Skills, ADL Training, Education re assistive Equipment, Caregiver Training, Home Program - Visit Plan Frequency: 2x /Week Duration: 3 Weeks General Plan: Maxim to complete OT to complete FMC, UE coordination and strengthening, safety training, increased (i) with ADL/IADls, and general ability to return to PLOF. TEXT: Thank you for the opportunity to evaluate your patient. For Medicare and Medicare HMO plans, please review the plan of care and approve it. It will need to be FAXED BACK to us at [phone] for Medicare purposes. Please let me know if there are questions or concerns regarding this plan of care. Physician Signature: Date:
--- NOTE | 2019-03-29 12:35 | HP.PTEVAL ---
Patient's Visit Information JADE CHAVIRA is a 78 year old M referred to Physical Therapy by London Gupta MD with a diagnosis of CVA. Date of Evaluation: 03/29/19 Physical Therapist: Lauren Amaral DPT - Visit Plan Frequency: 2x /Week Duration: 4 Weeks Plan: Balance assessment- balance and strength - Subjective Findings: Had a CVA 3 years ago and had another one about a week and a half ago. Notices he does not walk as well and the left hand doesn't work as well. Has had no falls since the stroke. 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 This stroke has slowed him down. No new pain. Occupational and Speech therapy. OT Yoselyn is working on the left hand. The left hand tingles all the time. No tingling in the legs. Sleep: sleep apnea and restless leg- sleeps when he sits down but hard to sleep at night. Has a cane that he uses sometimes but prefers not to use it. Is doing about 50% or less of his normal activities- is doing all activities but signifcantly slower. PMHx/Meds: see chart. - Objective Posture: severe FH, RS, increased kyphosis. Gait: step to pattern with the right LE- no AD- slow christopher. Stairs:asc/desc 8 recip with 1 HR- caught toe on the right on 2 stairs but was able to right himself. HR/TR: able with UE A. Balance: gait with horizontal and vertical HT: WFL- no change in gait speed, SLS; unable without UE A, Tandem stance in // bars- required UE A for foot placement and was able to stand 5 seconds on the right in front but unable with the left in front. 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 ROM: WFL in the LE. Strength: Left: hip: 4+/5, Knee: 5/5, Ankle: 5/5 Right hip: flexion: 4/5, extn: 4/5, Abd/add: 4+/5, Knee: 5/5, Ankle: 5/5 Core: fair - Goals Goal 1:: Patient will be I with HEP and progression Goal Time Frame: 4-6 Weeks Goal 2:: Patient will ambualte >300 feet with a normalized gait pattern Goal Time Frame: 4-6 Weeks Goal 3:: Patient will safely asc/desc 8 recip Goal Time Frame: 4-6 Weeks Goal 4:: Patient will tandem stance for 5 sec bilateral with no UE A Goal Time Frame: 4-6 Weeks - Rehabilitation Potential Physical Therapy Diagnosis: Patient presents with hypomobility- he has decreased core strength/stabilization, endurance and balance leading to abnormal gait and decreased ability to perform ADL's. Rehabilitation Potential: Good - Anticipated Interventions Patient/Client Instruction: Educate patient on: Benefits of Fitness Program Therapeutic Exercise to Include: Strength training, Endurance training, Balance training, Body mechanics, Postural training, Flexibilty training, Gait and locomotor training, Dynamic Lumbar Stabilization For the Purpose of:: To improve muscle performance and motor function Functional Training to Include: ADL Training, Gait training Thank you for the opportunity to evaluate your patient. For Medicare and Medicare HMO plans, please review the plan of care and approve it. It will need to be FAXED BACK to us at [phone] for Medicare purposes. For Medicare only, by signing this I certify the plan of care. Please let me know if there are questions or concerns regarding this plan of care. Physician Signature: Date:
--- NOTE | 2019-04-03 18:50 | HP.SP.AD_ITS ---
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 Pt with more recent CVA on 03/19/2019 with MRI revealing acute infarct in the left parietal lobe periventricular white matter corresponding to left MCA territory as well as other chronic white matter changes. Pt was readmitted 04/01-04/02/2019 with worsening gait, with MRI revealing previously seen acute infarct had mildly increased in size, from 3 mm to 9x6 mm. Smoking Status: Never smoker Hx Smoking: No Hx Tobacco Use: No Hx Smoking Exposure: No - Pain Is pain an issue with your current prescribed condition?: No - Personal Right Hearing Abillity: Normal Left Hearing Abillity: Normal Patients Living Arrangements: With Significant Other Patient Allergies - Allergies Allergies codeine Allergy (Verified 04/01/19 09:21) Hives gabapentin Allergy (Verified 04/01/19 09:21) Rash hydrocodone bitartrate [From Vicodin] Allergy (Verified 04/01/19 09:21) Rash oxycodone [From OxyContin] Allergy (Verified 04/01/19 09:21) Rash oxycodone HCl [From Percocet] Allergy (Verified 04/01/19 09:21) Hives Penicillins [PCN] Allergy (Verified 04/01/19 09:21) Rash Sulfa (Sulfonamide Antibiotics) Allergy (Verified 04/01/19 09:21) Rash tramadol Allergy (Verified 04/01/19 09:21) Unknown glyburide Adverse Reaction (Verified 04/01/19 09:21) Diarrhea metformin Adverse Reaction (Verified 04/01/19 09:21) Diarrhea CLQT - CLQT CLQT Administered: Yes CLQT: Cognitive Linguistic Quick Test (CLQT) is a criterion - referenced assessment designed for adults between the ages of 18 and 89 with known or suspected neurological dysfuntions. The CLQT is to assess strength and weaknes ses in five cognitive domains. Severity ratings are within normal limits, mild, moderate, severe deficits. The subtests are as follows: Date: 04/03/19 - Memory Memory: WNL - Language Language: Mild - Clock Drawing Severity Rating Clock Drawing Severity Rating: WNL - CLQT Comments Comments The CLQT was unable to be fully administered on this date due to time restraints. The following subtests were completed and scored: Personal Facts: 8 Criterion Cut Score (CCS): 8 Symbol Cancellation: 12 CCS: 10 Confrontation Namin CCS: 10 Clock Drawin CCS: 11 Story Retellin CCS: 5 Symbol Trails: 10 CCS: 6 Generative Namin CCS: 4 Design Memory: 6 CCS: 4. Therefore, the patient was below the cutoff score for his age on only the Generative Naming subtest, which quantifies word search and retrieval skills. This coincides with the patient's complaints of anomia during conversational speech, which has improved but is not yet at baseline. Additionally, the patient voices concerns with reading and writing. 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 Deficits in these areas may make it difficult for the pt to effectively convey his wants, needs, thoughts, and ideas and recall important information, which is medically- necessary due to the safety risks in emergent situations. - Recommendations Treatment Warranted: Yes - Frequency Frequency: 1-2x /Week Duration: 2-4 Months - Prognosis Prognosis: Excellent - Goals that are Established: Determination:: Goals will be added/modified as deemed necessary and appropriate. Therapy will be discontinued when results of re-evaluation indicate therapy is no longer needed or lack of progress has been documented. - Goal #1-5 Goal #1: The pt will participate in further evaluation of cognitive-linguistic functioning via completion of the CLQT and reading/writing screening tasks, with goal addition/adjustment as necessary. Goal #2: The pt will effectively utilize word-finding strategies in instances of anomia with 90% accuracy in 3/4 consecutive sessions. Goal #3: The pt will effectively utilize memory strategies to recall new information of increasing length and complexity with 90% accuracy in 3/4 consecutive sessions. Goal #4: The pt will provide appropriate, reasonable solutions to everyday and emergent problem situations with 90% accuracy in 3/4 consecutive sessions. Education - Patient has Indicated that the Following Identified Educational Needs: None The Patient has indicated that they have no educational or learning abilities that may effect their care.: Yes - Patient Instruction Patient Education: Diagnosis, Treatment Plan, Goals Person Taught: Patient, Significant Other Teaching Method: Discussion
--- NOTE | 2019-04-12 13:13 | HP.PTCOM_ITS ---
PT Communication Note 04/12/[address] London Gupta MD , Thank you for the referral of Godwin to [facility] for balance assessment. I have enclosed a copy of the results for your review. In summation, he scored low on the vestibular portion of the Sensory Organization Test. He also score low on forward adn left weight shift excursion on the Limits of Stability Test. With these results in mind, I plan to add balance exercises to his strenghening plan of care to help with these deficits. Please do not hesitate to call if you have questions. Sincerely, Krish John DPT, OCS, CSCS Contact Information
--- NOTE | 2019-04-22 14:47 | HP.OTCOM ---
OT Communication Note 04/22/[address] London Gupta MD Godwin Steiner (Jim) completed visual testing with the Motor- Free Visual Perception Test (MVPT). The MVPT assesses five areas of vision and perception which include spatial relationships, figure-ground discrimination, visual closure, visual discrimination, and visual memory. The results are as follows: MVPT Comparison to Same-Aged Peers: Raw score: 48 standard score: 95 Confidence Interval 90%: 86-104 Percentile rank: 37th age equivalent: <11.0 y/o Carlos was previously educated to discontinue driving due to recent CVA until further testing could be completed. 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 At this time it would be recommended for Carlos, if willing, to get further driving related assessment at [facility] in [place], [place]. This is due to concerns for cognitive related skills of safety awareness (he often sees safety concerns but will complete tasks regardless), and increased processing time need to complete more complex tasks. Additionally, vision testing indicated some underlying vision related deficits and further drivers assessment is recommended to ensure safety at this time. Sincerely, Jillian Lozano, OTR/L Contact Information
--- NOTE | 2019-04-22 14:56 | HP.OTCOM_ITS ---
OT Communication Note 04/22/[address] London Gupta MD Godwin Steiner (Jim) completed visual testing with the Motor- Free Visual Perception Test (MVPT). The MVPT assesses five areas of vision and perception which include spatial relationships, figure-ground discrimination, visual closure, visual discrimination, and visual memory. The results are as follows: MVPT Comparison to Same-Aged Peers: Raw score: 48 standard score: 95 Confidence Interval 90%: 86-104 Percentile rank: 37th age equivalent: <11.0 y/o Carlos was previously educated to discontinue driving due to recent CVA until further testing could be completed. 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 At this time it would be recommended for Carlos, if willing, to get further driving related assessment at [facility] in [place], [place]. This is due to concerns for cognitive related skills of safety awareness (he often sees safety concerns but will complete tasks regardless), and increased processing time need to complete more complex tasks. Additionally, vision testing indicated some underlying vision related deficits and further drivers assessment is recommended to ensure safety at this time. Sincerely, Jillian Lozano, OTR/L Contact Information
--- NOTE | 2019-04-29 14:43 | OTREVAL_ITS ---
London Gupta MD, It has been my pleasure to treat JADE CHAVIRA over the last 6 visits for Cerebral Infarction (CVA). Please see the progress note below for an update on the occupational therapy plan of care! Subjective: Arrived with , Erin. 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 Went over MVPT results and [facility]. Objective/Function: Completed reassessment on this date of 04/29/19. Maxim results are as follows: ROM. Shoulder. - flexion R 0-58, L 0-65. - abduction R 0-61, L 0-70. kinesthia- good. Strength. senior rd engineer in flexed position R 59, L 46. senior rd engineer in extended position: R 56, L 40 lbs. lateral pinch R 14, L 17. tripod R 18, L 12. pincer R 12, L 9. 9 hole pegboard test. R 45.86 s. L 3 minutes 21.81 seconds. Maxim has significantly increased in hand dexterity skills as shown in 9-hole pegboard test. L hand remained exhibiting decreased dexterity and control but is functional at this time. 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 Plan Frequency: 1x/Week Duration: 4 Weeks Visits in this POC: 10 Plan: Continue POC for 1x weekly appointment for next 4 weeks to address intrinsic and gross strengthening of hands and shoulder. OT addressed scores from MVPT and recommended them talking with their doctor to get further evaluation from [facility] [place] [facility] program based on assessment and increased time needed to process tasks. He is progressing well, but it is recommended he stays off the road at this time. 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 Further HEP to be set up to promote intrinsic strengthening and dexterity of L hand with increased emphasis on shoulder ROM for flexion and extension. BTE routine to be started. 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 and him both noted that screws, bolts and smaller items are still difficult which are not prior to most recent CVA. He will continue training L hand and B hand coordination to promote increased ability to return to baseline. Skilled OT needed at this time. Goals - Goals Goal:: Maxim to increased L UE strength by 15-20 lbs to promote increased ROM and strength needed to complete ADL/IADls by d/c. Maxim to increased BUE strength to 4+/5 for all measured movements 4/5 triasl 80% of the time to promote increased strength and endurance by d/c. Goal:: Maxim to increase B UE shoulder ROM for flexiona nd abduction by 10-15 degrees of B UE to promote increased ROM and mobility needed to promote increased particpation in ADLlIADLs by d/c. Goal:: Maxim to be able to manipulate small items like buttons, screws and bolts, etc. with B hands to promote increased ROM and dexterity needed to complete ADL/IADLs by d/c. Goal:: Maxim to be mod I to complete ADL/IADLs including farm -relatedtasks 4/5 tr ials 80% of the time to promote increased safety awareness and mobility by d/c. Goal:: Maxim to complete daily HEP to promote increased ROM, strength,and general ability to complete ADL/IADLS 4/5 trials 80% of the time by d/c. Goal:: Maxim to be mod I to recognize and complete safety training to promote increased safety awareness and decreased risk of further injury 4/5 trials 80% of the time by d/c. Anticipated Interventions Anticipated Interventions: A/AAROM/PROM, Strengthening, Scar Care, Triggerpoint Release, Desensitization, Joint Protection/Energy Conservation, Ergonomic Education, Fine Motor Coord/Charles, Neuro Reeducation, Visual/Perceptual Skills, Cognitive Skills, ADL Training, Education re assistive Equipment, Caregiver Training, Home Program Please do not hesitate to contact me at [phone] by phone or if you have questions or concerns regarding this new plan of care! Sincerely, Jillian Lozano, OTR/L
--- NOTE | 2019-05-13 10:26 | HP.PTREVAL ---
London Gupta MD, It has been my pleasure to treat JADE CHAVIRA over the last 9 visits for CVA. Please see the progress note below for an update on the physical therapy plan of care! Subjective: Feels that he is slower since the stroke. He is challenged when asked to stand for long period of time. 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 No falls- but does have to catch himself every once in awhile. Does not use a cane/walker. Feels that he is 50% better. Objective/Function: Posture: severe FH, RS, increased kyphosis. Gait: step to pattern with the right LE- no AD- slow christopher. Stairs:asc/desc 8 recip with 1 HR safely HR/TR: able with UE A. ROM: WFL in the LE. Strength: Left: hip: 4+/5, Knee: 5/5, Ankle: 5/5 Right hip: flexion: 4+/5, extn: 4+/5, Abd/add: 4+/5, Knee: 5/5, Ankle: 5/5 Core: fair. Endurance: fair minus- mild SOB from front door to treatment room. Plan Plan: Continue 2x a week for 4 weeks for progression of HEP, balance and endurance Goals Goal 1:: Patient will be I with HEP and progression Goal Time Frame: 4-6 Weeks Goal Progress: Progressing Goal 2:: Patient will ambualte >300 feet with a normalized gait pattern Goal Time Frame: 4-6 Weeks Goal Progress: Progressing Goal 3:: Patient will safely asc/desc 8 recip Goal Time Frame: 4-6 Weeks Goal Progress: Progressing Goal 4:: Patient will tandem stance for 5 sec bilateral with no UE A Goal Time Frame: 4-6 Weeks Anticipated Interventions Patient/Client Instruction: Educate patient on: Benefits of Fitness Program Therapeutic Exercise to Include: Strength training, Endurance training, Balance training, Body mechanics, Postural training, Flexibilty training, Gait and locomotor training, Dynamic Lumbar Stabilization For the Purpose of:: To improve muscle performance and motor function Functional Training to Include: ADL Training, Gait training Please do not hesitate to contact me at [phone] by phone or if you have questions or concerns regarding this new plan of care! Sincerely, KIMBERLEY BrarT
--- NOTE | 2019-05-13 14:38 | HP.OTREVAL ---
London Gupta MD, It has been my pleasure to treat JADE CHAVIRA over the last 10 visits for Cerebral Infarction (CVA). Please see the progress note below for an update on the occupational therapy plan of care! Subjective: Arrived with . present for tx. Re-eval as last scheduled visit. Objective/Function: Completed reassessment on this date of . Results are as follows: Shoulder ROM: - flexion R 0-63, L 0-67. - abduction R 0-52, L 0-66. Strength: - design agent in flexed position R 53, L 43. - design agent assisted in extension R 50, L 45. - lateral R 14, L 17. - tripod R 15, L 12. - pincer R 14, L 10. 9 hole pegboard: R 36.23 s. L 2 minutes 46.26 s. Numbness and tingling at baseline for L hand. He noted limited ROM of B UE is baseline but with use of HEP for lloyd system he has increased some range and minimize pain. Strength is concern and down from previous measurements. Plan Frequency: 1x/Week Duration: 4 Weeks Visits in this POC: 1x for total 11 visits Plan: Medical Hold. Family to look into Supplier Specialist Rehab program at [facility]. Will follow up 1x on OT schedule in 3-4 weeks. He knows what he needs to do as part of HEP and is to focus on that for the upcoming weeks. He is noncompliant with recommendations but is to call questions/concerns. 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 Goals - Goals Goal:: Maxim to increased L UE strength by 15-20 lbs to promote increased ROM and strength needed to complete ADL/IADls by d/c. Maxim to increased BUE strength to 4+/5 for all measured movements 4/5 triasl 80% of the time to promote increased strength and endurance by d/c. Goal:: Maxim to increase B UE shoulder ROM for flexiona nd abduction by 10-15 degrees of B UE to promote increased ROM and mobility needed to promote increased particpation in ADLlIADLs by d/c. Goal:: Maxim to be able to manipulate small items like buttons, screws and bolts, etc. with B hands to promote increased ROM and dexterity needed to complete ADL/IADLs by d/c. Goal:: Maxim to be mod I to complete ADL/IADLs including farm -relatedtasks 4/5 trials 80% of the time to promote increased safety awareness and mobility by d/c. Goal:: Maxim to complete daily HEP to promote increased ROM, strength,and general ability to complete ADL/IADLS 4/5 trials 80% of the time by d/c. Goal:: Maxim to be mod I to recognize and complete safety training to promote increased safety awareness and decreased risk of further injury 4/5 trials 80% of the time by d/c. Anticipated Interventions Anticipated Interventions: A/AAROM/PROM, Strengthening, Scar Care, Triggerpoint Release, Desensitization, Joint Protection/Energy Conservation, Ergonomic Education, Fine Motor Coord/Charles, Neuro Reeducation, Visual/Perceptual Skills, Cognitive Skills, ADL Training, Education re assistive Equipment, Caregiver Training, Home Program Please do not hesitate to contact me at [phone] by phone or if you have questions or concerns regarding this new plan of care! Sincerely, Jillian Lozano, OTR/L
--- NOTE | 2019-06-07 12:33 | HP.OTDCSUM ---
HP - OT D/C Summary It has been my pleasure to treat JADE CHAVIRA under orders from London Gupta MD, for the diagnosis of Cerebral Infarction (CVA) for a total of 11 visit(s). Please see the following information for a summary of their discharge status. - Overall Improvement % Improvement: 100 - Objective Objective/Function: Completed reassessment on this date 06/07/19. Results are as follows: Shoulder: - flexion R 0-50, L 0-58. - abduction R 0-44, L 0-63. Strength: - cracking still operator flexed R 55, L 35 lbs. - cracking still operator extended R 66, L 39 lbs. - lateral R 14, L 14 lbs. - three jaw: R 13, L 11 lbs. - pincer: R 12, L 9 lbs - Goals Patient Goals: Regain Mobility, Regain Strength, Decrease Pain, Return to Work, Improve Fine Motor Skills, Use Hand/Wrist/Arm Normally Again, Decrease Tingling/Numbness, Increase ROM, Be More Independent in ADLS, Resume Former Household Responsibilities (Cooking,Cleaning,Yard, etc.), Resume Hobbies Goal:: Maxim to increased L UE strength by 15-20 lbs to promote increased ROM and strength needed to complete ADL/IADls by d/c. Maxim to increased BUE strength to 4+/5 for all measured movements 4/5 triasl 80% of the time to promote increased strength and endurance by d/c. Goal:: Maxim to increase B UE shoulder ROM for flexiona nd abduction by 10-15 degrees of B UE to promote increased ROM and mobility needed to promote increased particpation in ADLlIADLs by d/c. Goal:: Maxim to be able to manipulate small items like buttons, screws and bolts, etc. with B hands to promote increased ROM and dexterity needed to complete ADL/IADLs by d/c. Goal:: Maxim to be mod I to complete ADL/IADLs including farm -relatedtasks 4/5 trials 80% of the time to promote increased safety awareness and mobility by d/c. Goal:: Maxim to complete daily HEP to promote increased ROM, strength,and general ability to complete ADL/IADLS 4/5 trials 80% of the time by d/c. Goal:: Maxim to be mod I to recognize and complete safety training to promote increased safety awareness and decreased risk of further injury 4/5 trials 80% of the time by d/c. - Plan Plan: Maxim will be d/c'd. They did not get driving assessment done. He is driving and seems to be doing fine with tasks. Recommended that he completes driving assessment prior to doing more highway driving but that he would likely need to get order from PCP and then contact [facility]. Handouts on all these topics have already been provided. 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 He is noncompliant with recommendations but noted he understands risks. 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 Due to noncompliance and he feels that he has returned to baseline post CVA three years ago he will be d/c?d. He had hire hand but he has returned to college and Maxim and his are completing tasks with family and other supports. Family and neighbors are helping as needed. He noted they are considering senior care next year. - D/C Information If there are questions or concerns regarding this patient's occupational therapy, please fell free to call me at [phone]. Thank you for the referral of this patient. Sincerely, Jillian Lozano, OTR/L
--- NOTE | 2019-06-13 14:07 | HP.PTDCSUM ---
HP - PT D/C Summary It has been my pleasure to treat JADE CHAVIRA under orders from London Gupta MD, for the diagnosis of CVA for a total of 16 visit(s). Discharge Date: Please see the following information for a summary of their discharge status. - Subjective Subjective: Patient reports that he is still doing all of the things he needs to do. He feels he is at his baseline - Pain Hips Pain Intensity (Out of 10): 0 - Overall Improvement % Improvement: 100 - Objective Objective/Function: Posture: severe FH, RS, increased kyphosis. Gait: step to pattern with the right LE- no AD- slow christopher. Stairs:asc/desc 8 recip with 1 HR safely HR/TR: able with UE A. ROM: WFL in the LE. Strength: Left: hip: 5/5, Knee: 5/5, Ankle: 5/5 Right hip: flexion: 5/5, extn: 5/5, Abd/add: 5/5, Knee: 5/5, Ankle: 5/5 Core: fair. Endurance: fair minus- mild SOB from front door to treatment room. - Goals Goal 1:: Patient will be I with HEP and progression Goal Progress: Goal Met Goal 2:: Patient will ambualte >300 feet with a normalized gait pattern Goal Progress: Progressing Goal 3:: Patient will safely asc/desc 8 recip Goal Progress: Progressing Goal 4:: Patient will tandem stance for 5 sec bilateral with no UE A - Plan Plan: Discharge to home exercise program. - D/C Information If there are questions or concerns regarding this patient's physical therapy, please feel free to call me at [phone]. Thank you for the referral of this patient. Sincerely, KIMBERLEY BrarT
--- NOTE | 2019-08-05 12:20 | HP.SP.DC ---
ST Discharge Summary - Discharged: Discharge: Godwin Steiner is discharged from outpatient speech-language therapy effective 08/05/2019. 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 The patient made adequate progress towards his goals, demonstrating successful, independent generalization of learned skills to functional activities during his daily life. Please reconsult as necessary.
== END 2019-06-28 19:00 | disposition home or self-care (01) ==
LOC: SP 10:30
PROVIDERS: Family Provider Family Medicine; PCP Family Medicine; Referring Provider Family Medicine; Visit Provider Family Medicine
DX: I69.320 Aphasia following cerebral infarction (principal)
CPT/HCPCS: 92507; 92523; 97110; 97162; 97164; 97166; 97168; 97530; 97750

== ENCOUNTER 2020-04-05 07:07 | Emergency (ER) | payer MEDICARE, OTHER, SELFPAY ==
[2019-10-21 13:09] VITALS: BMI 20.4
[2020-04-05 07:08] VITALS: BP 153/97; PULSE 65; RESP 18; TEMP 37.3; O2SAT 100; BMI 22.6
[2020-04-05 07:12] VITALS: O2SAT 100
--- NOTE | 2020-04-05 07:19 | RAD_ITS ---
STUDY: X-RAY - UNILATERAL RIBS ( LEFT ) WITH CHEST REASON FOR EXAM: Male, 79 years old. Fall last night. Left lateral chest pain. TECHNIQUE - RIBS: 3 view(s) of the ribs. TECHNIQUE - CHEST: Single PA view of the chest. COMPARISON: March 18, 2019. FINDINGS - RIBS: There are fractures of the posterior lateral left seventh through 10th ribs. There are also lateral fractures of the ninth and 10th ribs. FINDINGS - CHEST: The lungs are clear and expanded. No pneumothorax. There is no demonstrated pleural abnormality. Sternal cerclage wires are present from a prior sternotomy. The heart is normal in size. Normal mediastinum and wilber. Normal visualized pulmonary arteries. There is atherosclerotic calcification of the aortic arch with tortuosity. There are diffuse degenerative changes of the visualized thoracic spine. There is degenerative osteoarthritis of the bilateral shoulders. There is distended bowel loops in the abdomen, suggesting ileus. RAD/Ribs Uni Min 3V w/PA Chest IMPRESSION: RIBS: Mildly displaced fractures of the posterior lateral seventh through 10th ribs with lateral fractures of the ninth and 10th ribs. CHEST: 1.No acute cardiopulmonary disease or major interval change. 2. Ileus. Electronically Signed: Marcio Vallejo DO at 8:23 EDT Tel [phone], Service support ,
--- NOTE | 2020-04-05 07:28 | ED.DCSUM_ITS ---
History of Present Illness Chief Complaint: Fall Narrative: Patient presenting for evaluation after a fall. Patient reports that yesterday he was trying to exit a skid steer, and he lost his balance and fell onto his left side. Patient reports that he had some difficulty with getting up, but they actually use the skid steer to get him up and to get him into the house. He reports that he was able to ambulate around his house throughout the course of the evening albeit with pain. Patient reports that he now has severe pain in his left posterior ribs that caused him a inability to get out of bed this morning. Patient denies hitting his head or loss of consciousness. Denies any headaches or neck pain. Patient denies any shortness of breath or hemoptysis associated with this. No abdominal pain or hematuria. Patient denies any pain in his limbs or joints. Review of systems otherwise negative. Past Medical History - Allergies and Home Meds Allergies/Adverse Reactions: Allergies codeine Allergy (Verified 04/05/20 07:11) Hives gabapentin Allergy (Verified 04/05/20 07:11) Rash hydrocodone bitartrate [From Vicodin] Allergy (Verified 04/05/20 07:11) Rash oxycodone [From OxyContin] Allergy (Verified 04/05/20 07:11) Rash oxycodone HCl [From Percocet] Allergy (Verified 04/05/20 07:11) Hives Penicillins [PCN] Allergy (Verified 04/05/20 07:11) Rash Sulfa (Sulfonamide Antibiotics) Allergy (Verified 04/05/20 07:11) Rash tramadol Allergy (Verified 04/05/20 07:11) Unknown glyburide Adverse Reaction (Verified 04/05/20 07:11) Diarrhea metformin Adverse Reaction (Verified 04/05/20 07:11) Diarrhea Primary Care Physician: London Gupta MD [Primary Care Provider] - Prior records reviewed: Yes Past Medical History: - - Diabetes, hypertension, stroke, coronary artery bypass graft Surgical History: cholecystectomy, coronary bypass surgery, total hip arthroplasty - left x 2, - - right partial lung removal Lives: With Family Smoking Status: Never smoker Alcohol: None Drugs: None - Family History Maternal Family History: Family History (Last Reviewed 10/21/19 @ 13:12 by Ritika Tesfaye) Father No problems noted. Sister Leukemia Family History: Reports: No pertinent history - in her 80's Paternal Family History: Family History (Last Reviewed 10/21/19 @ 13:12 by Ritika Tesfaye) Father No problems noted. Sister Leukemia Family History: Reports: No pertinent history - age 99 Review of Systems All systems negative except as indicated General: Denies: Chills, Fever, Sweats Eyes: Denies: Visual changes - bilaterally, Diplopia ENT: Denies: Rhinorrhea, Sore throat Cardiovascular: Reports: Chest pain Respiratory: Denies: Dyspnea, Cough, Dyspnea on exertion Gastrointestinal: Denies: Abdominal pain, Nausea, Vomiting, Diarrhea, Melena, Hematochezia Genitourinary: Denies: Dysuria, Hematuria, Frequency Musculoskeletal: Denies: Back pain, Extremity Pain Skin: Denies: Rash, Wounds Neurological: Denies: Headache, Weakness, Numbness Physical Exam Vital Signs/Narrative: Vital Signs Temp Pulse Resp BP Pulse Ox 04/05/20 07:12 100 04/05/20 07:08 99.2 F H 65 18 153/97 H 100 Inital Vital Signs reviewed: Yes General: Well nourished, Well developed Head: Normocephalic, Atraumatic Eyes: Perrl, EOMI ENT: TM's clear, No hemotympanum or drainage, No trauma Neck: Nontender, Full ROM. Negative for: Spinal Tenderness, Paraspinal Tenderness Cardiovascular: Regular rate, Regular rhythm, No murmurs, - - 2+ radial pulses bilaterally symmetric Large well-healed midline sternotomy scar Respiratory: No distress, CTA bilaterally, Chest tenderness - Left chest tenderness is noted around the axillary and posterior axillary line in the caudal portion of the patient's thorax near about T8-T10 without any evidence of crepitus step-off deformity ecchymosis Abdomen: Soft, Nontender, Nondistended, Normal bowel sounds Back: Nontender Extremeties: Atraumatic with normal active full range of motion Skin: Normal color, No rash Neurological: Alert, Oriented x3, Cranial nerves II-XII grossly intact, Normal Strength, Normal Sensation Psychological: Normal affect Diagnostic/Tx/Re-eval Clinical Impression(s) from Imaging Studies Ribs w/Chest X-Ray 04/05/20 07:19 IMPRESSION: RIBS: Mildly displaced fractures of the posterior lateral seventh through 10th ribs with lateral fractures of the ninth and 10th ribs. CHEST: 1.No acute cardiopulmonary disease or major interval change. 2. Ileus. Electronically Signed: Marcio Vallejo DO at 8:23 EDT Tel [phone], Service support , - Medical Decision Making Patient presented secondary to a fall. Primary and secondary surveys showed only injury to the patient's left rib cage. Lidocaine patch was placed over the patient's area of pain. Radiographs of the chest and left ribs by my personal interpretation as well as radiology show multiple rib fractures. Ribs 7 through 10 have fractures, and ribs 9 and 10 actually have 2 fracture segments. Patient in the emergency department has not been requiring supplemental oxygen, his triage pulse ox was 100% when I went back into check up on the patient he states that his pain is improved with lidocaine and his pulse ox was 97% and he is not dyspneic. I had a discussion with the patient that typically someone of his age with this many rib fractures I would admit for pain control and at least obs ervation to ensure that he does not become hypoxic. Patient reports to me that he would rather be discharged home, and does not wish to stay in the hospital. Patient's injury was at 3 PM yesterday so were approaching a 24-hour victoria and he is not hypoxic and seems to be tolerating this well, so I do think it is reasonable for him to be discharged with very close outpatient follow-up and an incentive spirometer. I discussed patient's case with his primary care physician Dr. Gupta who agrees to see the patient as an outpatient. Patient will be discharged with lidocaine patches and an incentive spirometer. Patient was informed of signs and symptoms which to return. He was discharged in improved condition. Disposition: Home ED Disposition - Plan for ED Patient: Disposition: Home or Assisted Living Diagnosis: Multiple rib fractures involving four or more ribs Instructions: ED Rib Fx Prescriptions: Lidocaine [Lidoderm] 1 ea TP DAILY #15 adh..patch Prescription Printed Referrals: London Gupta MD [Primary Care Provider] - (Follow-up with Dr. Gupta in 1 to 2 days)
[2020-04-05] MEDS: Lidocaine 5% Patch 1 PATCH TOPICAL (08:00)
[2020-04-05 09:37] VITALS: BP 135/72; PULSE 71; RESP 16; O2SAT 95
== END 2020-04-05 11:38 | disposition home or self-care (01) ==
PROVIDERS: Emergency Provider Emergency Medicine; PCP Family Medicine
DX: S22.42XA Multiple fractures of ribs, left side, initial encounter for closed fracture (principal); I10 Essential (primary) hypertension; E11.9 Type 2 diabetes mellitus without complications; Z86.73 Personal history of transient ischemic attack (TIA), and cerebral infarction without residual deficits; Z95.1 Presence of aortocoronary bypass graft; W18.30XA Fall on same level, unspecified, initial encounter; Y93.89 Activity, other specified; Y92.008 Other place in unspecified non-institutional (private) residence as the place of occurrence of the external cause; Y99.8 Other external cause status
CPT/HCPCS: 71101; 99285

== ENCOUNTER → 2020-05-25 | Outpatient (CLI) | payer MEDICARE, OTHER, SELFPAY ==
[2020-04-20 11:31] VITALS: BMI 22.6
[2020-05-25 12:07] LABS: Absolute Lymphocyte Count 0.76 X10^3/uL (0.83-4.51); Absolute Neutrophil Count 6.7 X10^3/uL (2.0-7.7); Basophil# 0.04 X10^3/uL; Basophil% 0.5 % (0-1); Eosinophil# 0.11 X10^3/uL; Eosinophils% 1.3 % (0-5); Hematocrit 36.7 % (40-54); Hemoglobin 12.5 g/dL (13.0-16.5); Lymphocyte # 0.76 X10^3/ul (4.0); Lymphocyte % 9.3 % (19-41); Mean Corp Hgb Conc 34.1 g/dL (32-36); Mean Corpuscular Hgb 30.6 pg (27.0-32.0); Mean Platelet Vol. 9.9 fl (6.2-12.0); Monocyte# 0.47 X10^3/uL; Monocyte% 5.8 % (0-10); NRBC Flagged by Analyzer 0 % (0-5); Neutrophil # 6.68 X10^3/uL (2.7-7.7); Neutrophil % 81.8 % (47-70); Platelet Count 187 K/mm3 (150-450); RBC Distribution Width CV 13.6 % (11.6-14.6); RBC Distribution Width SD 44.7 fl (35.1-43.9); Red Blood Count 4.08 M/mm3 (4.6-6.2); White Blood Count 8.2 K/mm3 (4.4-11.0)
[2020-05-25 12:55] LABS: ALB/GLOB Ratio 1.2 RATIO (0.9-2.4); AST(SGOT) 26 U/L (15-37); Alanine Aminotransfer ALT/SGPT 29 U/L (16-61); Albumin, Serum 3.3 g/dL (3.2-5.0); Alkaline Phosphatase 101 U/L (45-117); Anion Gap 5 (5-15); BUN 25 mg/dL (7-18); BUN/Creat Ratio 24.3 RATIO (10-20); Calcium,Total 8.6 mg/dL (8.5-10.1); Chloride 107 mmol/L (98-107); Creatinine, Serum 1.03 mg/dL (0.70-1.30); EST Glomerular Filtration Rate 74 mL/min (>60); Est Glom Filt Rate - Afr Amer 89 mL/min (>60); Globulin 2.7 g/dL (2.2-4.2); Glucose 228 mg/dL (74-106); Potassium 3.7 mmol/L (3.5-5.1); Sodium Level 140 mmol/L (136-145); Thyroid Stim Hormone (TSH) 1.51 uIU/mL (0.358-3.74)
== END | disposition home or self-care (01) ==
LOC: BFHLAB 11:00
PROVIDERS: PCP Family Medicine; Visit Provider Family Medicine
DX: E11.9 Type 2 diabetes mellitus without complications (principal); M35.3 Polymyalgia rheumatica; I10 Essential (primary) hypertension; E78.5 Hyperlipidemia, unspecified
CPT/HCPCS: 36415; 80053; 84443; 85025

== ENCOUNTER → 2020-07-01 08:47 | Outpatient (CLI) | payer MEDICARE, OTHER, SELFPAY ==
[2020-06-25 09:38] VITALS: BMI 22.6
--- NOTE | 2020-07-01 08:48 | ART_ITS ---
Reason For Study: Absent peripheral pulse, polyneuropathy Procedure A bilateral lower extremity continuous wave Doppler with analog waveform analysis and ankle brachial indexes. Left Segmental Pressures Left brachial= 115mmHg. Left posterior tibial artery = 144mmHg. Left dorsalis pedis artery = 102mmHg. Left digit = 68 mmHg. The left dorsalis pedis waveforms are biphasic. The left posterior tibial artery waveforms are triphasic. Right Segmental Pressures Right brachial= 123mmHg. Right posterior tibial artery = 168mmHg. Right dorsalis pedis artery = 160mmHg. Right digit = 85 mmHg. The right dorsalis pedis waveforms are triphasic. The right posterior tibial artery waveforms are triphasic. Indices The right ankle brachial index by the dorsalis pedis is 1.30. The right ankle brachial index by the posterior tibial artery is 1.37. The right digital-brachial index is 0.69. The left ankle brachial index by the dorsalis pedis is 0.83. The left ankle brachial index by the posterior tibial artery is 1.17. The left digital-brachial index is 0.55. Interpretation Summary Resting ankle-brachial indices bilaterally are normal and triphasic except for the left dorsalis pedis which would be suspicious for moderate occlusive disease involving the left tibialis anterior. Digital brachial indices abnormal bilaterally. Consider possible distal small vessel disease or temperature effect Ordering Physician: Bryce Aiken Referring Physician: London Gupta Performed By: Ginny Llamas RVT
--- NOTE | 2020-07-01 08:48 | MRI_ITS ---
STUDY: MRI BRAIN WITH AND WITHOUT CONTRAST REASON FOR EXAM: Male, 80 years old. cva, mci, unbalanced TECHNIQUE: Standardized multiplanar fat and water weighted pulse sequences were obtained. IV Dotarem 13ml was administered for the contrast portion of the examination. COMPARISON: 03/25/2019 FINDINGS: There is moderate cerebral atrophy with widening of the extra-axial spaces and ventricular dilatation. There are multiple white matter hyperintensities, distributed throughout the deep white matter tracts of the cerebral hemispheres, consistent with moderate chronic white matter ischemic changes. There is no evidence for recent intracranial ischemia or other cause of cytotoxic edema on diffusion weighted imaging (DWI). Normal T2* images of the brain without demonstrated susceptibility artifact. There is no demonstrated hemosiderin stain. Chronic lacunar infarct of the right putamen. Normal thalami. There is no extra-axial fluid accumulation. Normal flow voids within the major intracranial circulation suggesting patency by spin echo criteria. Normal venous enhancement. There is no enhancing intra-axial or extra-axial abnormality. Normal sella turcica, pituitary gland, infundibular stalk, optic chiasm and hypothalamus. Normal tectal plate and pineal gland. Normal midbrain, dhara and medulla. Encephalomalacia and gliosis left hemisphere of the cerebellum consistent with a prior infarct. Normal basal cisterns. Normal bilateral temporal bones. Normal bilateral internal auditory canals. No demonstrated orbital abnormality, within the constraints of a routine brain study. Normal visualized paranasal sinuses. Normal calvarium and skull base. Normal visualized soft tissue structures. Normal visualized upper cervical spine. MRI/Brain W/WO Contrast IMPRESSION: Involutional changes of the brain, as described above. No acute infarct. Electronically Signed: Gary Willis MD at 12:30 EDT Tel , Service support ,
== END ==
PROVIDERS: PCP Family Medicine; Referring Provider Psychiatry & Neurology Neurology; Visit Provider Psychiatry & Neurology Neurology
DX: I63.9 Cerebral infarction, unspecified (principal); G31.84 Mild cognitive impairment of uncertain or unknown etiology; R09.89 Other specified symptoms and signs involving the circulatory and respiratory systems; G62.9 Polyneuropathy, unspecified
CPT/HCPCS: 70553; 93922; A9575

== ENCOUNTER 2020-07-03 14:55 | Emergency (ER) | payer MEDICARE, OTHER, SELFPAY ==
[2020-06-25 09:38] VITALS: BMI 22.6
[2020-07-03 14:56] VITALS: BP 152/80; PULSE 69; RESP 18; TEMP 36.5; O2SAT 98; BMI 24.0
--- NOTE | 2020-07-03 15:16 | VDLE_ITS ---
Reason For Study: Pain Procedure LEFT Exam performed portable in ED. GSV is normal. A preliminary report was called and/or faxed CFV is compressible, spontaneous, phasic, to Nicci. competent, and demonstrates normal augmentation. FV is compressible, spontaneous, phasic, competent and demonstrates normal augmentation. POP V is compressible, spontaneous, phasic, competent and demonstrates normal augmentation. T/P Trunk is compressible. PTV is compressible. LT PerV is compressible. Interpretation Summary There is no evidence of left lower extremity deep vein thrombosis. Harvested left great saphenous vein Ordering Physician: Spike Grajeda Referring Physician: London Gupta Performed By: Ginny Llamas RVT
--- NOTE | 2020-07-03 15:23 | ED.VISSUMM ---
- ER Visit Summary Date of Service: 07/03/20 Chief Complaint: Left hip pain History of Present Illness: The patient is a [address] London Gupta, Dr. Flynn, and Dr. shoshana cavanaugh. He reports that 2 days ago he had ABIs in the hospital here. He was walking to MRI after this and had the onset of left hip pain. States is radiating down his leg. He denies any back pain. He denies any trauma. No fall, MVA, or change in activity. Patient reports that it is a sharp pain is 9 out of 10 at worst and 2-10 currently. Is worsened by walking. There is no change with movement. Is relieved by rest and Tylenol. He denies any paresthesias or weakness. States that he has had 3 surgeries on his hip by Dr. Almodovar. The last of these being 4 to 5 years ago. He does have a total hip replacement. He is never had anything like this before. Patient denies any rash. No fever or chills. No constitutional symptoms. Physical Examination: Vitals: Stable. Afebrile. General: Well-nourished and well-developed. Head: Normocephalic atraumatic. Neck: Supple, no lymphadenopathy. No JVD. Nontender. Cardiovascular: Regular rate and rhythm. 2 out of 6 systolic murmur. Respiratory: No respiratory distress. Clear to auscultation bilaterally. Abdominal: Soft, nontender, nondistended, normal bowel sounds. No guarding, rebound, or peritoneal signs. Back: Nontender. Extremities: Moderate tenderness palpation over his left greater trochanter. No pain with flexion or extension of his hip. No pain with internal or external rotation. There is no erythema or warmth to suggest a septic joint. There is no rash consistent with shingles. He is neurovascular intact distal to this. He does have 1+ pitting edema on the left. He has minimal calf tenderness. I am not able to palpate a dorsalis pedis pulse bilaterally. However, he does have less than 2-second capillary refill. He has a 2+ femoral pulse on the right and a 1+ femoral pulse on the left. His left foot is not pale or cool. Skin: Normal color, no rash. Neurologic: Alert and oriented ?3. Cranial nerves II through XII are intact. Normal sensation. 4-5 strength the left upper extremity which patient reports is chronic. Normal strength otherwise. Psych: Normal affect. Test Results: Left lower extremity Doppler is negative. Clinical Impression(s) from Imaging Studies Hip/Pelvis X-Ray 07/03/20 15:50 IMPRESSION: No change from 08/20/2016. Electronically Signed: Gary Willis MD at 16:07 EDT Tel , Service support , I reviewed the patient's ABIs from 2 days ago. He has an DAGO on the right at the posterior tibial of 1.37 and 1.3 at the dorsalis pedis. He has triphasic waveforms in his foot. On the left he has a posterior tibial of 1.17 and dorsalis pedis of 0.83. He has a triphasic posterior tibial and a biphasic dorsalis pedis. The MRI of the brain he had that day showed moderate atrophy and moderate chronic white matter changes. No acute disease. He did have a chronic lacunar infarct of the right putamen. Emergency Department Course and Treatment: Patient is allergic to essentially all pain medications. He was given a dose of Tylenol here. Patient refused further pain medications. He would like to go home. Treatment Plan: Patient reports that with a prior hip replacement he was given a prescription for morphine. He will be discharged prescription for 15 mg morphine every 8 hours as needed, Colace, and instructed use Tylenol primarily. Follow-up with Dr. Almodovar in 1 week if not improving. Return to the emergency department for any worsening symptoms. Disposition: To home in improved and stable condition. Impression: 1. Left hip pain, acute. 2. History of left total hip arthroplasty. This note was generated with [facility] [employer] dictation software. It may contain incorrect words, spelling, and punctuation that were not noted in review of the chart prior to signing ED Disposition - Plan for ED Patient: Instructions: ED Sprain Hip Prescriptions: Docusate Sodium [Colace] 100 mg PO DAILY #20 capsule Morphine Sulfate 15 mg PO TID PRN 3 Days #10 tablet PRN Reason: Pain Score 6-10/10 Referrals: Warner Almodovar MD [STAFF PHYSICIAN] - 1 Week if not improving
[2020-07-03] MEDS: Acetaminophen 500 MG Tablet 1000 MG PO (15:32)
--- NOTE | 2020-07-03 15:50 | RAD_ITS ---
STUDY: X-RAY - PELVIS AND LEFT HIP REASON FOR EXAM: Male, 80 years old. patient was walking last week and had left hip pain TECHNIQUE: 3 views of the pelvis and hip. COMPARISON: 08/20/2016 FINDINGS: There is a non-specific bowel gas pattern. Normal visualized soft tissue structures. Normal bilateral iliac wings, sacroiliac joints and visualized sacrum. Normal bilateral superior and inferior pubic rami. Normal pubic symphysis. Normal bilateral ischial tuberosities. Status post left hip arthroplasty. The prosthesis appears located. No ostial lysis to suggest loosening.. RAD/HIP, UNI W/ Pelvis 2-3 Views IMPRESSION: No change from 08/20/2016. Electronically Signed: Gary Willis MD at 16:07 EDT Tel , Service support ,
== END 2020-07-03 16:39 | disposition home or self-care (01) ==
LOC: ED 15:52
PROVIDERS: Emergency Provider Emergency Medicine; PCP Family Medicine
DX: M25.552 Pain in left hip (principal); R60.0 Localized edema; Z96.642 Presence of left artificial hip joint; I25.10 Atherosclerotic heart disease of native coronary artery without angina pectoris; E11.9 Type 2 diabetes mellitus without complications; I10 Essential (primary) hypertension; E78.00 Pure hypercholesterolemia, unspecified; Z86.73 Personal history of transient ischemic attack (TIA), and cerebral infarction without residual deficits; Z79.4 Long term (current) use of insulin; Z79.02 Long term (current) use of antithrombotics/antiplatelets; Z79.899 Other long term (current) drug therapy
CPT/HCPCS: 73502; 93971; 99283

== ENCOUNTER → 2020-07-17 | Outpatient (CLI) | payer MEDICARE, OTHER, SELFPAY ==
[2020-04-20 11:31] VITALS: BMI 22.6
[2020-07-03 14:56] VITALS: BMI 24.0
[2020-07-17 12:58] LABS: Absolute Lymphocyte Count 0.59 X10^3/uL (0.83-4.51); Absolute Neutrophil Count 8.9 X10^3/uL (2.0-7.7); Basophil# 0.02 X10^3/uL; Basophil% 0.2 % (0-1); Eosinophil# 0.03 X10^3/uL; Eosinophils% 0.3 % (0-5); Hematocrit 39.1 % (40-54); Hemoglobin 13.1 g/dL (13.0-16.5); Lymphocyte # 0.59 X10^3/ul (4.0); Lymphocyte % 5.8 % (19-41); Mean Corp Hgb Conc 33.5 g/dL (32-36); Mean Corpuscular Hgb 30.7 pg (27.0-32.0); Mean Corpuscular Volume 91.6 fL (80-94); Mean Platelet Vol. 10.2 fl (6.2-12.0); Monocyte# 0.54 X10^3/uL; Monocyte% 5.3 % (0-10); NRBC Flagged by Analyzer 0 % (0-5); Neutrophil # 8.89 X10^3/uL (2.7-7.7); Neutrophil % 87.5 % (47-70); POSITIVE DIFFERENTIAL YES; Platelet Count 191 K/mm3 (150-450); RBC Distribution Width CV 13.2 % (11.6-14.6); RBC Distribution Width SD 44.1 fl (35.1-43.9); Red Blood Count 4.27 M/mm3 (4.6-6.2); White Blood Count 10.2 K/mm3 (4.4-11.0)
[2020-07-17 13:04] LABS: Differential Indicated SCAN CRITERIA MET
[2020-07-17 13:26] LABS: Vitamin B12 714 pg/mL (211-911)
[2020-07-17 13:49] LABS: Erythrocyte Sedimentation Rate 6 mm/hr (0-20)
[2020-07-17 13:55] LABS: BUN 22 mg/dL (7-18); Cholesterol 136 mg/dL (200); Creatinine, Serum 1.08 mg/dL (0.70-1.30); EST Glomerular Filtration Rate 70 mL/min (>60); Est Glom Filt Rate - Afr Amer 84 mL/min (>60); Ferritin 196 ng/mL (26-388); High Density Lipoprotein 48 mg/dL; Iron Binding Capacity,Total 272 ug/dL (250-450); Triglycerides 177 mg/dL; Very Low Density Lipoprotein 35 mg/dL (5-40)
[2020-07-17 14:04] LABS: Platelet Estimate ADEQUATE (ADEQ); Red Cell Morphology NORM C+C NORMAL (NORM C&C)
[2020-07-19 03:06] LABS: Free Kappa Light Chains 18.6 mg/L (3.3-19.4); Free Lambda Light Chains 15.1 mg/L (5.7-26.3)
== END | disposition home or self-care (01) ==
PROVIDERS: PCP Family Medicine; Referring Provider Nurse Practitioner Family; Visit Provider Family Medicine
DX: D64.9 Anemia, unspecified (principal); G31.84 Mild cognitive impairment of uncertain or unknown etiology; M35.3 Polymyalgia rheumatica; I63.9 Cerebral infarction, unspecified; G62.9 Polyneuropathy, unspecified
CPT/HCPCS: 80061; 82565; 82607; 82728; 82746; 83550; 83883; 84520; 85025; 85652

== ENCOUNTER → 2020-11-30 12:02 | Outpatient (CLI) | payer MEDICARE, OTHER, SELFPAY ==
[2020-08-06 14:23] VITALS: BMI 24.0
[2020-11-30 15:16] LABS: Absolute Lymphocyte Count 0.67 X10^3/uL (0.83-4.51); Absolute Neutrophil Count 7.5 X10^3/uL (2.0-7.7); Basophil# 0.06 X10^3/uL; Basophil% 0.7 % (0-1); Eosinophil# 0.08 X10^3/uL; Eosinophils% 0.9 % (0-5); Hematocrit 40.3 % (40-54); Hemoglobin 13.4 g/dL (13.0-16.5); Lymphocyte # 0.67 X10^3/ul (4.0); Lymphocyte % 7.6 % (19-41); Mean Corp Hgb Conc 33.3 g/dL (32-36); Mean Corpuscular Hgb 30.2 pg (27.0-32.0); Mean Platelet Vol. 10.4 fl (6.2-12.0); Monocyte# 0.42 X10^3/uL; Monocyte% 4.7 % (0-10); NRBC Flagged by Analyzer 0 % (0-5); Neutrophil # 7.54 X10^3/uL (2.7-7.7); Platelet Count 201 K/mm3 (150-450); RBC Distribution Width CV 13.1 % (11.6-14.6); RBC Distribution Width SD 43.7 fl (35.1-43.9); Red Blood Count 4.43 M/mm3 (4.6-6.2); White Blood Count 8.9 K/mm3 (4.4-11.0)
[2020-11-30 16:10] LABS: Anion Gap 6 (5-15); BUN 22 mg/dL (7-18); BUN/Creat Ratio 18.8 RATIO (10-20); Calcium,Total 8.8 mg/dL (8.5-10.1); Chloride 106 mmol/L (98-107); Creatinine, Serum 1.17 mg/dL (0.70-1.30); EST Glomerular Filtration Rate 63 mL/min (>60); Est Glom Filt Rate - Afr Amer 77 mL/min (>60); Glucose 250 mg/dL (74-106); Potassium 3.9 mmol/L (3.5-5.1); Sodium Level 141 mmol/L (136-145)
== END ==
PROVIDERS: PCP Family Medicine; Visit Provider Family Medicine
DX: I10 Essential (primary) hypertension (principal); E11.65 Type 2 diabetes mellitus with hyperglycemia
CPT/HCPCS: 36415; 80048; 85025

== ENCOUNTER → 2021-01-15 13:16 | Outpatient (CLI) | payer MEDICARE, OTHER, SELFPAY ==
[2021-01-08 10:09] VITALS: BMI 24.0
--- NOTE | 2021-01-15 13:20 | ECHOD_ITS ---
Reason For Study: TIA/CVA Procedure This was a 2D Doppler, Color Flow transthoracic echocardiogram. The study was technically difficult. Exam performed in department. Left Ventricle Normal LV size. Sigmoid septum. Segmental dysfunction with preserved ejection fraction (see wall motion). The estimated ejection fraction is 55 %. No evidence for diastolic dysfunction. Infero- Basal: Hypokinetic. Mid-Inferior: Hypokinetic. Mid-inferoseptal : Hypokinetic. Mid-anteroseptal : Hypokinetic. Right Ventricle Normal RV size. Normal systolic function. Atria Normal left atrium. Normal right atrium. No doppler evidence for ASD. Mitral Valve There is no mitral annular calcification. Normal mitral valve. Mild (1+) mitral valve insufficiency. Tricuspid Valve Normal tricuspid valve. Trivial tricuspid valve insufficiency. Right ventricular systolic pressure estimated to be 22 mmHg. Aortic Valve Trisinus/trileaflet aortic valve. Mild focal aortic valve thickening. Pulmonic Valve The pulmonic valve is not well visualized. Trivial pulmonic valve insufficiency. Great Vessels Normal sized aortic root. Pericardium/Pleural No pericardial effusion. MMode/2D Measurements & Calculations LVIDd: 4.6 cm IVSd: 1.3 cm Ao root diam: 3.1 cm LVIDs: 3.1 cm LVPWd: 1.2 cm RVDd: 3.6 cm FS: 32.9 % LAV(MOD-bp): 59.5 ml LA A4 area: 19.0 cm2 LA dimension(2D): 3.6 cm LAV(MOD-bp) Indexed: 33.4 ml/m2 LAV(MOD-sp2): 55.4 ml LAV(MOD-sp4): 55.7 ml Time Measurements MV dec time: 0.19 sec Doppler Measurements & Calculations MV E max carlos alberto: 57.0 cm/sec Lat Peak E' Carlos Alberto: 9.4 cm/sec Med Peak E' Carlos Alberto: 5.6 cm/sec MV A max carlos alberto: 78.6 cm/sec E/E' lat: 6.1 E/E' med: 10.3 MV E/A: 0.73 Ao V2 max: 139.0 cm/sec LV V1 max: 85.6 cm/sec PA V2 max: 99.0 cm/sec Ao max P.7 mmHg LV V1 max P.9 mmHg TR max carlos alberto: 218.1 cm/sec PI dec slope: 110.0 cm/sec2 TR max P.0 mmHg Interpretation Summary The study was technically difficult. Segmental dysfunction with preserved ejection fraction (see wall motion). The estimated ejection fraction is 55 %. Sigmoid septum. Mild (1+) mitral valve insufficiency. Trivial tricuspid valve insufficiency. Mild focal aortic valve thickening. Trivial pulmonic valve insufficiency. Right ventricular systolic pressure estimated to be 22 mmHg. No evidence for diastolic dysfunction. Ordering Physician: Edgardo Flynn Referring Physician: London Gupta Performed By: Bee Mistry, JANNETH, RVT
--- NOTE | 2021-01-15 13:54 | CT_ITS ---
EXAMINATION : Head CT w/out contrast HISTORY : Acute stroke COMPARISON : None. TECHNIQUE : Multiple contiguous axial images were obtained from the skull base to the vertex without intravenous contrast. A radiation dose optimization technique was used for this scan. FINDINGS : There is no evidence for acute intracranial hemorrhage, mass effect, or midline shift. There is no extra-axial fluid collection. There are periventricular white matter changes consistent with chronic microvascular ischemic disease. There is sulcal widening and ventricular enlargement consistent with cerebral atrophy. There is normal zamora-white differentiation, without CT evidence of acute ischemia or infarct. Encephalomalacia in the left cerebellum. Old lacunar infarct in the right centrum semiovale and lenticular nucleus. The skull base and calvarium are unremarkable. The orbits are unremarkable. The paranasal sinuses are clear. The mastoid air cells are well-aerated. The soft tissues are unremarkable. CT/Brain/Head without Contrast IMPRESSION: No acute intracranial abnormality. Chronic involutional and ischemic changes of the brain. Old left cerebellar infarct. Old lacunar infarct in the right centrum semiovale and ventricular nucleus. Electronically Signed: Jordi Tran MD at 16:16 EST Tel , Service support ,
== END ==
PROVIDERS: PCP Family Medicine; Referring Provider Internal Medicine Cardiovascular Disease; Visit Provider Internal Medicine Cardiovascular Disease
DX: I25.10 Atherosclerotic heart disease of native coronary artery without angina pectoris (principal); I63.9 Cerebral infarction, unspecified; I49.3 Ventricular premature depolarization; E78.5 Hyperlipidemia, unspecified; I10 Essential (primary) hypertension; Z95.1 Presence of aortocoronary bypass graft
CPT/HCPCS: 70450; 93306

== ENCOUNTER 2021-01-19 12:07 | Emergency (ER) | payer MEDICARE, OTHER, SELFPAY ==
[2021-01-08 10:09] VITALS: BMI 24.0
[2021-01-19 12:07] VITALS: BP 167/84; PULSE 67; RESP 16; TEMP 36.6; O2SAT 98; BMI 23.1
--- NOTE | 2021-01-19 12:24 | ED.VIS.GEN ---
History of Present Illness Chief Complaint: Lower Extremity Injury Detail of Chief Complaint: Bruising right lower extremity distal knee to ankle Informant: Patient, Significant Other Onset: Today Context: Sudden Onset Timing: Continuous Quality: Bruising Location: Right leg Current Severity: Moderate Maximum Severity: Moderate Worsened by: Possibly aspirin and Plavix Relieved by: Nothing Associated Symptoms: No associated symptoms Narrative: Patient is an elderly male who is on aspirin and Plavix who presents because of bruising to his right leg. He denies trauma. He denies problems with bruising easily. He denies bleeding from his gums when he brushes his teeth. He denies hematuria. He denies black or maroon-colored stool. He has no rash or spots noted on his extremities or torso. He is not on an anticoagulant. states he got new boots the other day. In the boots go to his knees. Prior similar symptoms: No Recent Illness/Hospitalization: No - Past Medical History (1) Atherosclerotic heart disease of [place] coronary artery without angina pectoris Status: Chronic (2) CVA (cerebral vascular accident) Status: Chronic Comment: January of 2016 with extension in March of 2016; 04/01/19 (3) DM type 2 (diabetes mellitus, type 2) Status: Chronic (4) Dyslipidemia Status: Chronic (5) Encounter for long-term (current) use of other medications Status: Chronic (6) Essential hypertension Status: Chronic (7) History of coronary artery bypass surgery Status: Chronic Comment: CABG x4- LAD to WOLF, SVG to RCA, SVG to lateral and ramus branches of CFX 06/10/14 Past Medical History - Allergies and Home Meds Allergies/Adverse Reactions: Allergies codeine Allergy (Verified 01/19/21 12:09) Hives gabapentin Allergy (Verified 01/19/21 12:09) Rash hydrocodone bitartrate [From Vicodin] Allergy (Verified 01/19/21 12:09) Rash oxycodone [From OxyContin] Allergy (Verified 01/19/21 12:09) Rash oxycodone HCl [From Percocet] Allergy (Verified 01/19/21 12:09) Hives Penicillins [PCN] Allergy (Verified 01/19/21 12:09) Rash Sulfa (Sulfonamide Antibiotics) Allergy (Verified 01/19/21 12:09) Rash tramadol Allergy (Verified 01/19/21 12:09) Unknown glyburide Adverse Reaction (Verified 01/19/21 12:09) Diarrhea metformin Adverse Reaction (Verified 01/19/21 12:09) Diarrhea Primary Care Physician: London Gupta MD [Primary Care Provider] - Prior records reviewed: Yes Surgical History: cholecystectomy, coronary bypass surgery, total hip arthroplasty - left x 2, - - right partial lung removal Lives: Spouse/ Significant Other Smoking Status: Never smoker Alcohol: None Drugs: None - Family History Maternal Family History: Family History (Last Reviewed 01/07/21 @ 14:08 by Gill Cardona) Father No problems noted. Sister Leukemia Family History: Reports: No pertinent history - in her 80's Paternal Family History: Family History (Last Reviewed 01/07/21 @ 14:08 by Gill Cardona) Father No problems noted. Sister Leukemia Family History: Reports: No pertinent history - age 99 Review of Systems General: Denies: Chills, Fever, Malaise, Subjective, Sweats Cardiovascular: Denies: Chest pain, Palpitations Respiratory: Denies: Dyspnea, Cough, Sputum Gastrointestinal: Denies: Nausea, Vomiting, Melena, Hematochezia Genitourinary: Denies: Hematuria Musculoskeletal: Reports: Swelling. Denies: Extremity Pain Skin: Reports: Rash Neurological: Denies: Headache, Weakness, Parasthesia Hematologic: Denies: Easy bruising, Easy bleeding Physical Exam Vital Signs/Narrative: Vital Signs Temp Pulse Resp BP Pulse Ox 01/19/21 12:07 97.8 F 67 16 167/84 H 98 Inital Vital Signs reviewed: Yes General: Well nourished, Well developed, No Acute Distress Head: Normocephalic, Atraumatic Eyes: Perrl, EOMI, Pale conjunctiva - Question pallor ENT: Moist mucous membranes, No rhinorrhea Neck: Supple, Nontender, No lymphadenopathy, No JVD Cardiovascular: Regular rate, Regular rhythm, No murmurs, Normal S1, Normal S2 Respiratory: No distress, CTA bilaterally, Chest nontender Abdomen: Soft, Nondistended, Normal bowel sounds Rectal: Deferred Extremities: Nontender, Edema - Hitting edema bilaterally.. Negative for: No edema Skin: Normal color, Trauma - Thickened bruising right leg that is circumferential. Negative for: Cyanosis, Diaphoresis, Jaundice Neurological: Alert, Oriented x3, Cranial nerves II-XII grossly intact, Normal Strength, Normal Sensation Psychological: Normal affect Diagnostic/Tx/Re-eval Laboratory Results 01/19/21 01/19/21 01/19/21 12:35 12:35 12:47 WBC 10.7 RBC 4.14 L Hgb 12.8 L Hct 38.3 L MCV 92.5 MCH 30.9 MCHC 33.4 RDW Std Deviation 44.5 H RDW Coeff of Arturo 13.3 Plt Count 175 MPV 10.1 Immature Gran % (Auto) 1.500 H Neut % (Auto) 87.3 H Lymph % (Auto) 6.6 L [place] % (Auto) 3.8 Eos % (Auto) 0.5 Baso % (Auto) 0.3 Absolute Neuts (auto) 9.4 H Absolute Lymphs (auto) 0.71 L Nucleated RBC % 0 PT Cancelled 13.8 INR Cancelled 1.1 APTT Cancelled 25.2 Platelet count and coags are normal. Therefore will discharge to home. Patient informed since the bruising is in the distribution of the boot that the boot in combination with aspirin and Plavix is the cause. - Medical Decision Making Suspect patient's bruising is due to new boot since the area that is bruised is the height of his boot. Will obtain CBC to assess H&H, platelet count and PT/INR and PTT to rule out bleeding disorder. Suspect this is due to the new bruit and the fact the patient is on aspirin and Plavix. ED Disposition - Plan for ED Patient: Disposition: Home or Assisted Living Diagnosis: Traumatic ecchymosis of right lower leg Instructions: ED Contusion, Lower Extremity Referrals: London Gupta MD [Primary Care Provider] - As Needed Additional Instructions: Recommend not wearing the boots and possibly getting new boots.
[2021-01-19 12:48] LABS: Absolute Lymphocyte Count 0.71 X10^3/uL (0.83-4.51); Absolute Neutrophil Count 9.4 X10^3/uL (2.0-7.7); Basophil# 0.03 X10^3/uL; Basophil% 0.3 % (0-1); Eosinophil# 0.05 X10^3/uL; Eosinophils% 0.5 % (0-5); Hematocrit 38.3 % (40-54); Hemoglobin 12.8 g/dL (13.0-16.5); Lymphocyte # 0.71 X10^3/ul (4.0); Lymphocyte % 6.6 % (19-41); Mean Corp Hgb Conc 33.4 g/dL (32-36); Mean Corpuscular Hgb 30.9 pg (27.0-32.0); Mean Corpuscular Volume 92.5 fL (80-94); Mean Platelet Vol. 10.1 fl (6.2-12.0); Monocyte# 0.41 X10^3/uL; Monocyte% 3.8 % (0-10); NRBC Flagged by Analyzer 0 % (0-5); Neutrophil # 9.36 X10^3/uL (2.7-7.7); Neutrophil % 87.3 % (47-70); Platelet Count 175 K/mm3 (150-450); RBC Distribution Width CV 13.3 % (11.6-14.6); RBC Distribution Width SD 44.5 fl (35.1-43.9); Red Blood Count 4.14 M/mm3 (4.6-6.2); White Blood Count 10.7 K/mm3 (4.4-11.0)
[2021-01-19 13:01] LABS: International Normalized Ratio 1.1; Prothrombin Time (Protime)PT. 13.8 SECONDS (11.7-14.9)
[2021-01-19 13:02] LABS: Partial Thromboplast Time 25.2 Seconds (24.1-36.2)
[2021-01-19 13:13] VITALS: BP 141/76; PULSE 77; RESP 16; O2SAT 97
== END 2021-01-19 13:21 | disposition home or self-care (01) ==
PROVIDERS: Emergency Provider Emergency Medicine; PCP Family Medicine
DX: S80.11XA Contusion of right lower leg, initial encounter (principal); I25.10 Atherosclerotic heart disease of native coronary artery without angina pectoris; E11.9 Type 2 diabetes mellitus without complications; E78.5 Hyperlipidemia, unspecified; I10 Essential (primary) hypertension; Z86.73 Personal history of transient ischemic attack (TIA), and cerebral infarction without residual deficits; Z95.1 Presence of aortocoronary bypass graft; Z79.02 Long term (current) use of antithrombotics/antiplatelets; X58.XXXA Exposure to other specified factors, initial encounter; Y93.9 Activity, unspecified; Y92.89 Other specified places as the place of occurrence of the external cause; Y99.8 Other external cause status
CPT/HCPCS: 85025; 85610; 85730; 99282; A4216

== ENCOUNTER → 2021-02-12 10:32 | Outpatient (CLI) | payer MEDICARE, OTHER, SELFPAY ==
[2021-01-19 12:07] VITALS: BMI 23.1
[2021-02-12 11:49] LABS: ALB/GLOB Ratio 1.1 RATIO (0.9-2.4); AST(SGOT) 25 U/L (15-37); Alanine Aminotransfer ALT/SGPT 36 U/L (16-61); Albumin, Serum 3.5 g/dL (3.2-5.0); Alkaline Phosphatase 85 U/L (45-117); Anion Gap 3 (5-15); BUN 30 mg/dL (7-18); BUN/Creat Ratio 23.3 RATIO (10-20); Calcium,Total 9.2 mg/dL (8.5-10.1); Chloride 103 mmol/L (98-107); Cholesterol 123 mg/dL (200); Creatinine, Serum 1.29 mg/dL (0.70-1.30); EST Glomerular Filtration Rate 57 mL/min (>60); Est Glom Filt Rate - Afr Amer 68 mL/min (>60); Globulin 3.2 g/dL (2.2-4.2); Glucose 117 mg/dL (74-106); High Density Lipoprotein 49 mg/dL; Potassium 3.7 mmol/L (3.5-5.1); Protein, Total 6.7 g/dL (6.4-8.2); Sodium Level 139 mmol/L (136-145); Triglycerides 105 mg/dL; Very Low Density Lipoprotein 21 mg/dL (5-40)
== END ==
LOC: LAB 10:35
PROVIDERS: PCP Family Medicine; Referring Provider Psychiatry & Neurology Neurology; Visit Provider Psychiatry & Neurology Neurology
DX: E78.5 Hyperlipidemia, unspecified (principal); I63.9 Cerebral infarction, unspecified
CPT/HCPCS: 36415; 80053; 80061

== ENCOUNTER → 2021-06-22 | Outpatient (CLI) | payer MEDICARE, OTHER, SELFPAY ==
[2021-03-22 15:10] VITALS: BMI 23.1
[2021-06-22 21:27] LABS: Probe Check PASS; Specimen Processing Control PASS
== END | disposition home or self-care (01) ==
PROVIDERS: PCP Family Medicine; Visit Provider Family Medicine
DX: Z20.822 Contact with and (suspected) exposure to COVID-19 (principal)
CPT/HCPCS: 87635; U0005; U0003

== ENCOUNTER 2021-08-11 19:38 | Emergency (ER) | payer MEDICARE, OTHER, SELFPAY ==
[2021-08-11 19:39] VITALS: BP 172/88; PULSE 78; RESP 18; TEMP 36.6; O2SAT 100; BMI 22.4
--- NOTE | 2021-08-11 20:04 | CT_ITS ---
EXAM: CT SPINE - CERVICAL WITHOUT IV REASON FOR EXAM: Male, 81 years old. NECK PAIN Injury/Pain Individualized dose optimization techniques were used for this CT. TECHNIQUE: Multiplanar images were obtained of the cervical spine. IV contrast was not utilized. COMPARISON: None. FINDINGS: The vertebral bodies do maintain their height. The odontoid process is intact. There is no anterolisthesis or fracture. No pre-vertebral soft tissue swelling is seen. The intravertebral disc height is lost. There are scattered lymph nodes in the neck. There are degenerative changes of the osseous structures. There is bilateral facet arthropathy. There are scattered levels of foraminal stenosis. CT/Spine Cervical without Contras IMPRESSION: Degenerative changes of the cervical spine. No acute abnormality of the spine. Electronically Signed: Rafael Austin MD at 20:49 EDT , Service support ,
--- NOTE | 2021-08-11 20:04 | CT_ITS ---
STUDY: CT BRAIN WITHOUT CONTRAST REASON FOR EXAM: Male, 81 years old. Injury/Pain TECHNIQUE: Transaxial CT imaging of the brain was performed without administration of intravenous contrast material. Individualized dose optimization techniques were used for this CT. COMPARISON: 01/15/2021 FINDINGS: There is right periorbital soft tissue swelling. Normal size ventricles and extra-axial spaces for the patient''s age. Normal white matter tracts of the cerebral hemispheres. Normal basal ganglia and thalami. Normal brainstem. Normal cerebellum. There is no intracranial hemorrhage. There are no findings of an acute ischemic infarction. . Ethmoid sinus disease. Blood and fluid in the right maxillary sinus. Fracture of the right maxilla. Fracture of the right zygomatic arch. There is a defect of the left lamina papyracea consistent for acute traumatic injury and a acute fracture site. Fracture of the anterior right axilla. Nasal bone fracture. Fracture the nasal septum. Right inferior orbital wall fracture. Right extraconal air. No visualized retrobulbar hematoma. ASPECTS 10 CT/Brain/Head without Contrast IMPRESSION: There are no acute intracranial findings. There is right periorbital soft tissue swelling. Multiple right and left facial fractures. Dedicated CT face is recommended for evaluation. Electronically Signed: Rafael Austin MD at 20:48 EDT , Service support ,
[2021-08-11] MEDS: Diphth,Pertuss(Acell),Tet Vac 0.5 ML Vial IM (20:27)
[2021-08-11 20:38] VITALS: BP 175/85; PULSE 74; RESP 20; O2SAT 99
[2021-08-11 21:10] VITALS: BP 187/93; PULSE 72; RESP 21; O2SAT 97
--- NOTE | 2021-08-11 21:19 | EDS_ITS ---
HPI History of Present Illness Chief Complaint: Trauma Informant: patient Onset/Context/Timing Onset: Today Mechanism/Context: Fall Quality of Pain: Aching Location: Face Associated Symptoms Associated Symptoms: Negative for Parasthesias and Weakness Narrative Narrative: Patient presents after a fall that occurred today. Patient states he was attempting to get onto his tractor when he fell backwards. Patient was approximately 1 foot up in the air. Patient is unsure if he had any loss of consciousness. Denies any paresthesias or weakness. Patient states his only injury is in his face and right periorbital area. Patient is unsure of his last tetanus. Patient denies any injuries to his arms or legs. Patient denies any back pain. Tetanus Immunization: Unknown [facility] Medical History Abnormal result of cardiovascular function study Atherosclerotic heart disease of [place] coronary artery without angina pectoris Bronchitis CVA (cerebral vascular accident) Difficulty balancing DM type 2 (diabetes mellitus, type 2) Dyslipidemia Encounter for long-term (current) use of other medications Essential hypertension Fatigue Heart disease Hip pain, chronic Left acetabular fracture Normochromic normocytic anemia Osteoporosis PMR (polymyalgia rheumatica) Premature ventricular contractions Rib fractures Shoulder pain SOB (shortness of breath) Steroid dependent Stroke-like symptoms TIA (transient ischemic attack) Home Medications insulin glargine 18 units SC DAILY 09/28/16 [History Last Taken 04/01/19] alfalfa 1 tab PO BID 11/29/17 [History Last Taken 04/01/19] calcium carbonate-vitamin D3 1 tab PO BID MDD bones 03/18/19 [History Last Taken 04/01/19] pramipexole 1.5 mg PO QHS 03/18/19 [History Last Taken 04/01/19] atorvastatin 40 mg tablet 20 mg PO QHS #30 tab 04/20/20 [Rx Last Taken Unknown] prednisone 10 mg tablet 10 mg PO DAILY tab 08/06/20 [History Last Taken Unknown] comp.stocking,knee,long,medium #2 each 02/08/21 [Rx Last Taken Unknown] carvedilol 6.25 mg tablet 6.25 mg PO BID #180 tab 05/11/21 [Rx Last Taken Unknown] Disability placard #1 ea NS 07/26/21 [Rx Last Taken Unknown] bumetanide 1 mg tablet 1 mg PO Q OTHER DAY #15 tab 07/26/21 [Rx Last Taken Unknown] clopidogrel 75 mg tablet 75 mg PO DAILY #30 tablet 07/26/21 [Rx Last Taken Unknown] galantamine 16 mg 24 hr capsule,extended release 16 mg PO QAM #30 cap 07/26/21 [Rx Last Taken Unknown] memantine 10 mg tablet 10 mg PO BID #60 tab 07/26/21 [Rx Last Taken Unknown] oxybutynin chloride 5 mg tablet,extended release 24 hr 5 mg PO .every other day #30 tab 07/26/21 [Rx Last Taken Unknown] potassium chloride 10 mEq capsule,extended release 10 meq PO Q OTHER DAY #15 cap 07/26/21 [Rx Last Taken Unknown] cephalexin 500 mg PO Q6 #40 capsule 08/12/21 [Rx Last Taken Unknown] Allergy/AdvReac Type Severity Reaction Status Date / Time codeine Allergy Hives Verified 08/11/21 19:46 gabapentin Allergy Rash Verified 08/11/21 19:46 hydrocodone bitartrate Allergy Rash Verified 08/11/21 19:46 [From Vicodin] oxycodone [From OxyContin] Allergy Rash Verified 08/11/21 19:46 oxycodone HCl [From Percocet] Allergy Hives Verified 08/11/21 19:46 Penicillins [PCN] Allergy Rash Verified 08/11/21 19:46 Sulfa (Sulfonamide Allergy Rash Verified 08/11/21 19:46 Antibiotics) tramadol Allergy Unknown Verified 08/11/21 19:46 glyburide AdvReac Diarrhea Verified 08/11/21 19:46 metformin AdvReac Diarrhea Verified 08/11/21 19:46 Family History Father No problems noted. Sister Leukemia Surgical History History of coronary artery bypass surgery (~06/10/14) Social History Smoking Status: Never smoker alcohol intake: never substance use type: does not use caffeine: No what type of physical activity do you participate in: other details: PT frequency: 1-2 times per week duration: 30-45 minutes/day seatbelt use: always do you feel safe at home: Yes ROS ROS ED Constitutional Constitutional ED: Denies chills or fever(s) Eyes Eyes: Reports blurry vision right; Denies change in vision ENT ENT ED: Reports rhinorrhea; Denies sore throat Cardiovascular Cardiovascular: Denies chest pain or palpitations Respiratory/Chest Respiratory/Chest: Denies cough or dyspnea Gastrointestinal Gastrointestinal: Denies nausea or vomiting Genitourinary Genitourinary ED: Denies dysuria or hematuria Musculoskeletal Musculoskeletal: Denies back pain or neck pain Integumentary Denies abscess or rash Neurologic Neurologic: Reports headache(s); Denies weakness Allergic/Immunologic Allergic/Immunologic ED: Denies mouth swelling or urticaria EXAM Physical Exam Const Vital Signs: 08/11/21 19:39 08/11/21 19:46 08/11/21 20:38 Temperature 97.8 F Temperature Source Temporal Pulse Rate 78 74 Respiratory Rate 18 20 H Respiratory Effort Normal Non-Labored Blood Pressure 172/88 H 175/85 H Blood Pressure Mean 116 115 Pulse Ox 100 99 Oxygen Delivery Method Room Air Room Air 08/11/21 21:10 08/11/21 22:00 08/11/21 23:05 Temperature Temperature Source Pulse Rate 72 71 70 Respiratory Rate 21 H 14 13 Respiratory Effort Blood Pressure 187/93 H 187/96 H 160/83 H Blood Pressure Mean 124 126 108 Pulse Ox 97 98 98 Oxygen Delivery Method Room Air Room Air Room Air 08/12/21 01:08 Temperature Temperature Source Pulse Rate 82 Respiratory Rate 18 Respiratory Effort Blood Pressure 166/81 H Blood Pressure Mean Pulse Ox 96 Oxygen Delivery Method Positive well nourished and well developed General Appearance ED: well developed Eyes PERRL and EOMs intact bilaterally General Eye ED: Yes other Other Details: There is a large subconjunctival hemorrhage on the right. Neck General: tenderness Chest Wall inspection of chest normal and palpation of chest normal Resp normal respiratory effort and clear to auscultation bilaterally Cardio regular rhythm Rate: regular rate GI normal to inspection, nondistended, normoactive bowel sounds and non-tender Palpation: soft Extremity normal to inspection and full ROM Neuro oriented x3, CN's II-XII intact bilaterally, moves all extremities, no focal motor deficits and no sensory deficits noted Sensorium / Orientation: alert Psych mental status grossly normal MDM MDM MDM Narrative Medical decision making narrative: CT scan of the brain was obtained. There is no intracranial abnormality. There is right periorbital soft tissue swelling and multiple facial fractures. This was interpreted by the radiologist and reviewed by myself. CT scan of the cervical spine was obtained. There are degenerative changes. There is no acute fracture or spondylolisthesis. This was also interpreted by the radiologist and reviewed by myself. CT scan of the facial bones was obtained. There is a right zygomatic maxillary sinus complex fracture with orbital and maxillary sinus fractures. There is also a right inferior and lateral infraorbital edema with mild proptosis. There is right maxillary sinus fractures with diffuse sinus disease. There are right orbital wall fractures. Visual acuity was obtained and was normal. Case was discussed with Dr. Aldridge from ophthalmology. She will be able to follow-up with the patient tomorrow. She advised the patient to avoid blowing his nose. Patient was given a prescription for Keflex. Patient was given his first dose here. Patient and family understood and were agreeable with the plan. All questions were answered. Radiography Diagnostic Testing: Clinical Impression(s) from Imaging Studies Brain CT 08/11/21 20:04 IMPRESSION: There are no acute intracranial findings. There is right periorbital soft tissue swelling. Multiple right and left facial fractures. Dedicated CT face is recommended for evaluation. Electronically Signed: Rafael Austin MD at 20:48 EDT , Service support , Cervical Spine CT 08/11/21 20:04 IMPRESSION: Degenerative changes of the cervical spine. No acute abnormality of the spine. Electronically Signed: Rafael Austin MD at 20:49 EDT , Service support , Facial/Sinus 08/11/21 22:02 IMPRESSION: Right zygomaticomaxillary complex fracture with multiple right orbital and maxillary sinus fractures as above. Mild associated right inferior and lateral intraorbital edema with mild proptosis. Right maxillary sinus fractures with diffuse sinus disease. There is underlying chronic left maxillary sinus wall thickening. Individualized dose optimization techniques were used for this CT. at 2314 Reported and signed by: Yung Warren MD Electronically Signed: Yung Warren MD at 23:12 EDT Tel , Service support , Discharge Plan Triage Chief Complaint: Trauma ED Provider: Krish Martines Dx/Rx/DC Orders Clinical Impression: Fracture of right orbital wall Instructions: ED Facial Fracture, ED Head Injury (Adult) Prescriptions: New cephalexin [cephalexin] 500 MG capsule 500 mg PO Q6 Qty: 40 RF: 0 No Action alfalfa tablet tablet 1 tab PO BID RF: 0 atorvastatin 40 mg tablet 20 mg PO QHS Qty: 30 RF: 0 (DME) comp.stocking,knee,long,medium Misc See Rx Instructions .ROUTE .MEDSUPPLY Qty: 2 RF: 0 (DME) Disability placard See Rx Instructions .Route .MEDSUPPLY Qty: 1 RF: 0 bumetanide 1 mg tablet 1 mg PO Q OTHER DAY Qty: 15 RF: 6 clopidogrel 75 mg tablet 75 mg PO DAILY Qty: 30 RF: 6 galantamine 16 mg capsule,ext rel. pellets 24 hr 16 mg PO QAM Qty: 30 RF: 5 memantine 10 mg tablet 10 mg PO BID Qty: 60 RF: 6 oxybutynin chloride 5 mg tablet extended release 24hr 5 mg PO .every other day Qty: 30 RF: 6 potassium chloride 10 mEq capsule, extended release 10 meq PO Q OTHER DAY Qty: 15 RF: 6 insulin glargine 100 UNITS/ML insulin pen 18 units SC DAILY RF: 0 pramipexole 1 MG tablet 1.5 mg PO QHS RF: 0 calcium carbonate-vitamin D3 1 EACH tablet 1 tab PO BID MDD bones RF: 0 prednisone 10 mg tablet 10 mg PO DAILY RF: 0 carvedilol [Coreg] 6.25 mg tablet 6.25 mg PO BID Qty: 180 RF: 3 Primary Care Provider: London Gupta Referrals: Del Cruz MD [STAFF PHYSICIAN] - 1 Day Jacqueline Aldridge MD [STAFF PHYSICIAN] - 1 Day London Gupta MD [Primary Care Provider] - Disposition Disposition: Home, Self Care Discharge Date/Time: 08/12/21 01:23
[2021-08-11 22:00] VITALS: BP 187/96; PULSE 71; RESP 14; O2SAT 98
--- NOTE | 2021-08-11 22:02 | CT_ITS ---
HISTORY: Facial trauma TECHNIQUE: Helically acquired images were obtained of the facial bones without intravenous contrast. Coronal and sagittal reformats obtained. A radiation dose optimization technique was used for this scan. COMPARISON: CT head on same day. FINDINGS: # of images incl. paperwork: 490 SOFT TISSUES: Right preseptal periorbital superficial soft tissue hematoma. Superficial soft tissue edema extends inferiorly along the right cheek.. No radiodense soft tissue foreign body. ORBITS: Globes are intact. Intraorbital edema along the inferior medial extraconal right orbit with slight right exophthalmos. No organized intraorbital hematoma. Coronary atherosclerosis. FACIAL BONES: Right zygomatic arch fracture. Right anterior and lateral/posterior maxillary sinus fracture. Right medial, lateral, inferior orbital wall fracture. SINUSES: Inferior frontal, diffuse ethmoid and maxillary, and mild sphenoid sinus mucoperiosteal thickening. Left maxillary wall thickening. SKULL BASE: Unremarkable. CT/Sinus/Facial Bone IMPRESSION: Right zygomaticomaxillary complex fracture with multiple right orbital and maxillary sinus fractures as above. Mild associated right inferior and lateral intraorbital edema with mild proptosis. Right maxillary sinus fractures with diffuse sinus disease. There is underlying chronic left maxillary sinus wall thickening. Individualized dose optimization techniques were used for this CT. at 1234 Reported and signed by: Yung Warren MD Electronically Signed: Yung Warren MD at 23:12 EDT Tel , Service support ,
[2021-08-11 23:05] VITALS: BP 160/83; PULSE 70; RESP 13; O2SAT 98
[2021-08-12] MEDS: Cephalexin 500 MG Capsule PO (01:06)
[2021-08-12 01:08] VITALS: BP 166/81; PULSE 82; RESP 18; O2SAT 96
== END 2021-08-12 01:23 | disposition home or self-care (01) ==
PROVIDERS: Emergency Provider Emergency Medicine; PCP Family Medicine
DX: S02.40CA Maxillary fracture, right side, initial encounter for closed fracture (principal); S02.40EA Zygomatic fracture, right side, initial encounter for closed fracture; I25.10 Atherosclerotic heart disease of native coronary artery without angina pectoris; E11.9 Type 2 diabetes mellitus without complications; E78.5 Hyperlipidemia, unspecified; I10 Essential (primary) hypertension; Z86.73 Personal history of transient ischemic attack (TIA), and cerebral infarction without residual deficits; Z79.4 Long term (current) use of insulin; Z79.899 Other long term (current) drug therapy; W17.89XA Other fall from one level to another, initial encounter; Y93.89 Activity, other specified; Y92.89 Other specified places as the place of occurrence of the external cause; Y99.8 Other external cause status
CPT/HCPCS: 70450; 70486; 72125; 90715; 99285; A4216

== ENCOUNTER 2021-10-29 13:29 | Inpatient (IN) | payer MEDICARE, OTHER, SELFPAY ==
[2021-10-29] VITALS (20 sets, daily range): BP systolic 79–195; BP diastolic 51–92; PULSE 81–118; RESP 20–35; TEMP 36.7–37.5; O2SAT 85–98; BMI 22.8; BMI 19.5
--- NOTE | 2021-10-29 13:56 | EKG12_ITS ---
Test Reason : SOB Blood Pressure : / mmHG Vent. Rate : 088 BPM Atrial Rate : 088 BPM P-R Int : 130 ms QRS Dur : 138 ms QT Int : 376 ms P-R-T Axes : 033 260 -05 degrees QTc Int : 454 ms Sinus rhythm with occasional Premature ventricular complexes and Premature atrial complexes Right bundle branch block Inferior infarct , age undetermined Abnormal ECG Confirmed by LEONARD SOL, SHELLIE ([id number]), video tape editor LIZ ANTON ([id number]) on 11/02/2021 9:38:54 AM Referred By: BB Confirmed By:SHELLIE VALLE MD
--- NOTE | 2021-10-29 13:58 | ED.VIS.DYS ---
HPI History of Present Illness Chief Complaint: Shortness of Breath Informant: patient and family Narrative Narrative: History is extremely limited. Patient only occasionally nods yes or no to questions. I cannot get him to answer most questions. He is awake. I do not know if this difficulty answering is due to dementia which he has or if it is due to his acute illness and dyspnea and overall weakness. His family member is there. He states that he has been short of breath since yesterday. He does not think he has congestive heart failure or COPD. He is on bumetanide though. They think he is on a blood thinner. His med list shows Plavix. I cannot get that the patient's had any chest pain. He has had a cough. I do not know if he has had productive sputum. He evidently does have a history of having episodes like this but is not clear what they are secondary to. I am very limited in terms of obtaining history to help me evaluate this patient. I cannot get what makes it better or worse. [facility] Medical History (Updated 10/29/21 @ 15:[address] Hardeep Barclay MD) Abnormal result of cardiovascular function study Atherosclerotic heart disease of [place] coronary artery without angina pectoris Bronchitis CVA (cerebral vascular accident) Difficulty balancing DM type 2 (diabetes mellitus, type 2) Dyslipidemia Encounter for long-term (current) use of other medications Essential hypertension Fatigue Heart disease Hip pain, chronic Left acetabular fracture Normochromic normocytic anemia Osteoporosis PMR (polymyalgia rheumatica) Premature ventricular contractions Rib fractures Shoulder pain SOB (shortness of breath) Steroid dependent Stroke-like symptoms TIA (transient ischemic attack) Home Medications insulin glargine 18 units SC DAILY 09/28/16 [History Last Taken 04/01/19] alfalfa 1 tab PO BID 11/29/17 [History Last Taken 04/01/19] calcium carbonate-vitamin D3 1 tab PO BID MDD bones 03/18/19 [History Last Taken 04/01/19] pramipexole 1.5 mg PO QHS 03/18/19 [History Last Taken 04/01/19] atorvastatin 40 mg tablet 20 mg PO QHS #30 tab 04/20/20 [Rx Last Taken Unknown] prednisone 10 mg tablet 10 mg PO DAILY tab 08/06/20 [History Last Taken Unknown] comp.stocking,knee,long,medium #2 each 02/08/21 [Rx Last Taken Unknown] carvedilol 6.25 mg tablet 6.25 mg PO BID #180 tab 05/11/21 [Rx Last Taken Unknown] Disability placard #1 ea NS 07/26/21 [Rx Last Taken Unknown] bumetanide 1 mg tablet 1 mg PO Q OTHER DAY #15 tab 07/26/21 [Rx Last Taken Unknown] clopidogrel 75 mg tablet 75 mg PO DAILY #30 tablet 07/26/21 [Rx Last Taken Unknown] galantamine 16 mg 24 hr capsule,extended release 16 mg PO QAM #30 cap 07/26/21 [Rx Last Taken Unknown] memantine 10 mg tablet 10 mg PO BID #60 tab 07/26/21 [Rx Last Taken Unknown] oxybutynin chloride 5 mg tablet,extended release 24 hr 5 mg PO .every other day #30 tab 07/26/21 [Rx Last Taken Unknown] potassium chloride 10 mEq capsule,extended release 10 meq PO Q OTHER DAY #15 cap 07/26/21 [Rx Last Taken Unknown] cephalexin 500 mg PO Q6 #40 capsule 08/12/21 [Rx Last Taken Unknown] Allergy/AdvReac Type Severity Reaction Status Date / Time codeine Allergy Hives Verified 08/11/21 19:46 gabapentin Allergy Rash Verified 08/11/21 19:46 hydrocodone bitartrate Allergy Rash Verified 08/11/21 19:46 [From Vicodin] oxycodone [From OxyContin] Allergy Rash Verified 08/11/21 19:46 oxycodone HCl [From Percocet] Allergy Hives Verified 08/11/21 19:46 Penicillins [PCN] Allergy Rash Verified 08/11/21 19:46 Sulfa (Sulfonamide Allergy Rash Verified 08/11/21 19:46 Antibiotics) tramadol Allergy Unknown Verified 08/11/21 19:46 glyburide AdvReac Diarrhea Verified 08/11/21 19:46 metformin AdvReac Diarrhea Verified 08/11/21 19:46 Family History Father No problems noted. Sister Leukemia Surgical History History of coronary artery bypass surgery (~06/10/14) Social History Smoking Status: Never smoker alcohol intake: never substance use type: does not use caffeine: No what type of physical activity do you participate in: other details: PT frequency: 1-2 times per week duration: 30-45 minutes/day seatbelt use: always do you feel safe at home: Yes ROS ROS ED Review of Systems ROS Unobtainable: other Details: Review of systems is essentially unobtainable for reasons listed in history of present illness. EXAM Physical Exam Const Vital Signs: 10/29/21 13:31 10/29/21 13:39 10/29/21 14:10 Temperature 99.2 F H 99.5 F H Temperature Source Temporal Axillary Pulse Rate 118 H 95 Respiratory Rate 35 H 35 H Respiratory Effort Short of Breath Labored Respiratory Depth Shallow Respiratory Pattern Tachypnea Blood Pressure 195/92 H 195/92 H Blood Pressure Mean 126 126 Pulse Ox 85 95 Oxygen Delivery Method Nasal Cannula Non-Rebreather High Flow Oxygen Flow Rate (L/min) 3 10/29/21 15:18 Temperature Temperature Source Pulse Rate 110 H Respiratory Rate 30 H Respiratory Effort Respiratory Depth Respiratory Pattern Blood Pressure 131/66 H Blood Pressure Mean 87 Pulse Ox 90 Oxygen Delivery Method High Flow Oxygen Flow Rate (L/min) 10 Patient looks ill. He looks weak. He is having increased difficulty breathing. He has coarse breath sounds with slight wheezing but also basilar rales. Positive well nourished and well developed General Appearance ED: well developed; Negative for pallor HEENT atraumatic Eyes EOMs intact bilaterally Neck Neck Narrative: I do not see definitive JVD. However he does have some redundancy of soft tissue that could make this slightly difficult. Resp Resp Narrative: Respiratory effort is increased. His breaths are somewhat shallow and quick. He is maintaining sats at about 90%. He has coarse breath sounds bilaterally. Most of this is due to some basilar rales. He may have some mild expiratory wheezing also. Cardio Cardio Narrative: Heart rate does look irregular on the monitor. It looks to be normal sinus with frequent PACs and a right bundle branch block. Tones are difficult to hear perfectly over his coarse breath sounds. He does have a well-healed median sternotomy scar. GI non-tender Palpation: soft Extremity normal to inspection Extremity Narrative: No significant edema. No tenderness. No notable asymmetry. General Extremety ED: Negative for edema General Extremity: Negative for edema Neuro Neuro Narrative: Patient is awake and alert. I cannot ascertain orientation. He looks tired but he does not seem lethargic or sleepy. Psych Psych Narrative: Flat affect. Skin Skin Narrative: No diaphoresis. General Skin Exam: Negative for jaundice or pallor Rashes: no rashes MDM MDM MDM Narrative Medical decision making narrative: Patient's white count and hemoglobin are okay. Sodium is mildly low. Chloride is also a bit low. Glucose is normal. Renal function is normal. Lactate is normal. Troponin is normal. BNP is slightly high at 360. However, this level does not justify his level of hypoxia for his age. His x-ray is more consistent with Covid type pneumonia. His Covid test is positive. I cannot get from him if he had Covid immunizations. I talked to his nephew. He is not sure if he had Covid immunizations but is calling the patient's . Patient saturation is about 90% on 10 L. He certainly needs to come in the hospital. I have serious concerns about this patient. With his age, level of illness acutely and chronically he may not do well with this. I have given him Decadron. I will give him a dose of Lasix. I discussed this with the hospitalist. Although this patient's labs do not show marked abnormalities, I think this patient is quite ill. We will put him in the ICU due to the high oxygen needs, overall level of illness and progression over what appears to be a 2-day period. Hopefully we get more information when the nephew calls the patient's . Lab Data Attestation: I reviewed the patient's lab results. Labs: Laboratory Results - last 24 hr 10/29/21 10/29/21 10/29/21 13:40 13:40 13:40 WBC 10.0 RBC 4.61 Hgb 14.4 Hct 39.9 L MCV 86.6 MCH 31.2 MCHC 36.1 H RDW Std Deviation 41.5 RDW Coeff of Arturo 13.4 Plt Count 149 L MPV 9.6 Immature Gran % (Auto) 0.300 Neut % (Auto) 90.0 H Lymph % (Auto) 5.2 L [place] % (Auto) 4.4 Eos % (Auto) 0.0 Baso % (Auto) 0.1 Absolute Neuts (auto) 9.0 H Absolute Lymphs (auto) 0.52 L Nucleated RBC % 0 Differential Comment COMMENT Sodium 127 L Potassium 4.0 Chloride 90 L Carbon Dioxide 30.0 Anion Gap 7 BUN 17 Creatinine 1.15 Estim Creat Clear Calc 46.95 Est GFR (MDRD) Af Amer 78 Est GFR (MDRD) Non-Af 65 BUN/Creatinine Ratio 14.8 Glucose 92 Lactic Acid 1.5 Calcium 8.4 L Troponin I High Sens 28 B-Natriuretic Peptide 10/29/21 13:40 WBC RBC Hgb Hct MCV MCH MCHC RDW Std Deviation RDW Coeff of Arturo Plt Count MPV Immature Gran % (Auto) Neut % (Auto) Lymph % (Auto) [place] % (Auto) Eos % (Auto) Baso % (Auto) Absolute Neuts (auto) Absolute Lymphs (auto) Nucleated RBC % Differential Comment Sodium Potassium Chloride Carbon Dioxide Anion Gap BUN Creatinine Estim Creat Clear Calc Est GFR (MDRD) Af Amer Est GFR (MDRD) Non-Af BUN/Creatinine Ratio Glucose Lactic Acid Calcium Troponin I High Sens B-Natriuretic Peptide 360.1 H Radiography Diagnostic Testing: Clinical Impression(s) from Imaging Studies Chest X-Ray 10/29/21 14:48 IMPRESSION: Bilateral patchy pneumonia. Electronically Signed: Gary Willis MD at 15:02 EST Tel , Service support , EKG Initial EKG: Comments: EKG done for dyspnea read by me shows sinus rhythm with mostly PACs. He has a right bundle branch block. Overall rate is 88. No acute ST elevation or depression. UT interval is normal. QRS duration is long with his right bundle branch block. QTc is normal. This right bundle does seem to be new since March 2019. Critical Care Time Critical Care Time: Yes Critical care time (excluding procedures): 30-74 minutes and - (38 minutes critical care time, discussion with patient and family, reassessing the patient, adjusting therapy, discussing with campaign consultant.) Discharge Plan Dx/Rx/DC Orders Clinical Impression: Pneumonia due to 2019 novel coronavirus, Respiratory failure with hypoxia Disposition Disposition: [facility]
[2021-10-29 14:05] LABS: Absolute Lymphocyte Count 0.52 X10^3/uL (0.83-4.51); Basophil# 0.01 X10^3/uL; Basophil% 0.1 % (0-1); Hematocrit 39.9 % (40-54); Hemoglobin 14.4 g/dL (13.0-16.5); Lymphocyte # 0.52 X10^3/ul (0.83-4.51); Lymphocyte % 5.2 % (19-41); Mean Corp Hgb Conc 36.1 g/dL (32-36); Mean Corpuscular Hgb 31.2 pg (27.0-32.0); Mean Corpuscular Volume 86.6 fL (80-94); Mean Platelet Vol. 9.6 fl (6.2-12.0); Monocyte# 0.44 X10^3/uL; Monocyte% 4.4 % (0-10); NRBC Flagged by Analyzer 0 % (0-5); Neutrophil # 8.98 X10^3/uL (2.7-7.7); POSITIVE DIFFERENTIAL YES; Platelet Count 149 K/mm3 (150-450); RBC Distribution Width CV 13.4 % (11.6-14.6); RBC Distribution Width SD 41.5 fl (35.1-43.9); Red Blood Count 4.61 M/mm3 (4.6-6.2)
[2021-10-29 14:11] LABS: Differential Indicated SCAN CRITERIA MET
[2021-10-29] MEDS: Ipratropium/Albuterol Sulfate 3 ML AMPUL.NEB INHALATION (14:16)
[2021-10-29 14:18] LABS: Lactic Acid 1.5 mmol/L (0.4-1.9)
[2021-10-29 14:20] LABS: Anion Gap 7 (5-15); BUN 17 mg/dL (7-18); BUN/Creat Ratio 14.8 RATIO (10-20); Calcium,Total 8.4 mg/dL (8.5-10.1); Chloride 90 mmol/L (98-107); Creatinine, Serum 1.15 mg/dL (0.70-1.30); EST Glomerular Filtration Rate 65 mL/min (>60); Est Glom Filt Rate - Afr Amer 78 mL/min (>60); Estimated Creatinine Clearance 46.95 ml/min; Glucose 92 mg/dL (74-106); Sodium Level 127 mmol/L (136-145); Troponin-I HS 28 pg/mL (3.0-78.0)
[2021-10-29 14:29] LABS: BNP,B-Type NATRIURETIC PEPTIDE 360.1 pg/mL (0-100)
--- NOTE | 2021-10-29 14:48 | RAD_ITS ---
STUDY: X-RAY CHEST REASON FOR EXAM: Male, 81 years old. sob TECHNIQUE: Single AP portable view of the chest. COMPARISON: 04/05/2020 FINDINGS: Status post median sternotomy. Patchy alveolar opacities in both lungs consistent with bilateral pneumonia. There is no demonstrated pleural abnormality. Normal size heart. Normal mediastinum and wilber. Normal visualized pulmonary arteries. Normal visualized aortic arch and descending thoracic aorta. Normal visualized thoracic spine. Normal visualized ribs, clavicles, and shoulders. There is no demonstrated abnormality of the visualized soft tissue structures of the upper abdomen. RAD/Chest 1 View (Portable) IMPRESSION: Bilateral patchy pneumonia. Electronically Signed: Gary Willis MD at 15:02 EST Tel , Service support ,
[2021-10-29] MEDS: Nitroglycerin SL (ED/IMG/CATH) 0.4 MG TABLET SL (15:11)
[2021-10-29] MEDS: dexAMETHasone 10 MG/ML Vial 6 MG IV (15:19)
--- NOTE | 2021-10-29 15:42 | NURSING ---
DR JOEL HANNON
--- NOTE | 2021-10-29 15:53 | NURSING ---
[facility]
--- NOTE | 2021-10-29 15:56 | NURSING ---
HOSPITALIST IN ER
--- NOTE | 2021-10-29 16:11 | CT_ITS ---
STUDY: CT BRAIN WITHOUT CONTRAST REASON FOR EXAM: Male, 81 years old. changed mental status RADIATION DOSAGE (If Supplied By Facility): CTDIvol = ( 44.99 ) mGy, DLP = ( 812.98 ) mGycm TECHNIQUE: Transaxial CT imaging of the brain was performed without administration of intravenous contrast material. Individualized dose optimization techniques were used for this CT. COMPARISON: 08/11/2021 FINDINGS: Normal soft tissue structures. Normal calvarium. There is mild cerebral atrophy with widening of the extra-axial spaces and ventricular dilatation. There are areas of decreased attenuation within the white matter tracts of the supratentorial brain, consistent with microvascular disease changes. Chronic lacunar infarct of the right basal ganglia. Normal brainstem. Encephalomalacia in the left hemisphere of the cerebellum consistent with a chronic infarct. There is no intracranial hemorrhage. There are no findings of an acute ischemic infarction. Normal visualized paranasal sinuses. CT/Brain/Head without Contrast IMPRESSION: Chronic involutional changes of the brain. Electronically Signed: Gary Willis MD at 17:11 EST Tel , Service support ,
--- NOTE | 2021-10-29 16:12 | NURSING ---
ICU 5
--- NOTE | 2021-10-29 16:14 | PCM.HP.STD ---
Documented by User: Jesús MENG 10/29/21 17:34 HPI - General General Date of Admission: 10/29/21 Date of Service: 10/29/21 Chief Complaint: Shortness of breath HPI Narrative JADE CHAVIRA is an 81-year-old male who presents to the ED at [facility] on 10/29/2021 with a chief complaint of shortness of breath and confusion. Patient is unable to provide much insight into his current condition as he is acutely confused, and does not interact to questions asked. Patient's nephew is present in room and reports that he received a call yesterday evening saying that his uncle was unwell and that he had been getting progressively more short of breath with a nonproductive cough. Patient's nephew reports that the onset of the symptoms has been in the past 36 hours as he talked to him on Monday, and patient seemed fine. Nephew is unaware of patient medical history and cannot provide much insight. Additions history taking was also extremely limited. Vital signs in the ED show BP of 131/66, HR of 106, RR of 24, temperature of 99.5 ?F and patient is currently satting 93% on 10 L of high flow oxygen. CBC showed WBCs at 10, hemoglobin of 14.4 and platelets at 149. BMP shows sodium at 127, potassium of 4.0, BUN of 17, creatinine at 1.15. BNP mildly elevated at 360.1. Rapid Covid is positive. Chest x-ray shows bilateral patchy pneumonia. Patient was given duo nebs, Lasix and Decadron in the ED with no response. [facility] Medical History (Updated 10/29/21 @ 16:34 by Jesús MENG) Abnormal result of cardiovascular function study Atherosclerotic heart disease of [place] coronary artery without angina pectoris Bronchitis CVA (cerebral vascular accident) Difficulty balancing DM type 2 (diabetes mellitus, type 2) Dyslipidemia Encounter for long-term (current) use of other medications Essential hypertension Fatigue Heart disease Hip pain, chronic Left acetabular fracture Normochromic normocytic anemia Osteoporosis PMR (polymyalgia rheumatica) Premature ventricular contractions Rib fractures Shoulder pain SOB (shortness of breath) Steroid dependent Stroke-like symptoms TIA (transient ischemic attack) Medical History unable to obtain Home Medications insulin glargine 18 units SC DAILY 09/28/16 [History Last Taken 04/01/19] alfalfa 1 tab PO BID 11/29/17 [History Last Taken 04/01/19] calcium carbonate-vitamin D3 1 tab PO BID MDD bones 03/18/19 [History Last Taken 04/01/19] pramipexole 1.5 mg PO QHS 03/18/19 [History Last Taken 04/01/19] atorvastatin 40 mg tablet 20 mg PO QHS #30 tab 04/20/20 [Rx Last Taken Unknown] prednisone 10 mg tablet 10 mg PO DAILY tab 08/06/20 [History Last Taken Unknown] comp.stocking,knee,long,medium #2 each 02/08/21 [Rx Last Taken Unknown] carvedilol 6.25 mg tablet 6.25 mg PO BID #180 tab 05/11/21 [Rx Last Taken Unknown] Disability placard #1 ea NS 07/26/21 [Rx Last Taken Unknown] bumetanide 1 mg tablet 1 mg PO Q OTHER DAY #15 tab 07/26/21 [Rx Last Taken Unknown] clopidogrel 75 mg tablet 75 mg PO DAILY #30 tablet 07/26/21 [Rx Last Taken Unknown] galantamine 16 mg 24 hr capsule,extended release 16 mg PO QAM #30 cap 07/26/21 [Rx Last Taken Unknown] memantine 10 mg tablet 10 mg PO BID #60 tab 07/26/21 [Rx Last Taken Unknown] oxybutynin chloride 5 mg tablet,extended release 24 hr 5 mg PO .every other day #30 tab 07/26/21 [Rx Last Taken Unknown] potassium chloride 10 mEq capsule,extended release 10 meq PO Q OTHER DAY #15 cap 07/26/21 [Rx Last Taken Unknown] cephalexin 500 mg PO Q6 #40 capsule 08/12/21 [Rx Last Taken Unknown] Allergy/AdvReac Type Severity Reaction Status Date / Time codeine Allergy Hives Verified 08/11/21 19:46 gabapentin Allergy Rash Verified 08/11/21 19:46 hydrocodone bitartrate Allergy Rash Verified 08/11/21 19:46 [From Vicodin] oxycodone [From OxyContin] Allergy Rash Verified 08/11/21 19:46 oxycodone HCl [From Percocet] Allergy Hives Verified 08/11/21 19:46 Penicillins [PCN] Allergy Rash Verified 08/11/21 19:46 Sulfa (Sulfonamide Allergy Rash Verified 08/11/21 19:46 Antibiotics) tramadol Allergy Unknown Verified 08/11/21 19:46 glyburide AdvReac Diarrhea Verified 08/11/21 19:46 metformin AdvReac Diarrhea Verified 08/11/21 19:46 Family History Father No problems noted. Sister Leukemia Surgical History History of coronary artery bypass surgery (~06/10/14) Surgical History unable to obtain Social History Smoking Status: Never smoker alcohol intake: never substance use type: does not use caffeine: No what type of physical activity do you participate in: other details: PT frequency: 1-2 times per week duration: 30-45 minutes/day seatbelt use: always do you feel safe at home: Yes ROS Review of Systems ROS Unobtainable: due to encephalopathy Vital Signs Vital Signs Vital Signs: 10/29/21 13:31 10/29/21 13:39 10/29/21 14:10 Temperature 99.2 F H 99.5 F H Temperature Source Temporal Axillary Pulse Rate 118 H 95 Respiratory Rate 35 H 35 H Respiratory Effort Short of Breath Labored Respiratory Depth Shallow Respiratory Pattern Tachypnea Blood Pressure 195/92 H 195/92 H Blood Pressure Mean 126 126 Pulse Ox 85 95 Oxygen Delivery Method Nasal Cannula Non-Rebreather High Flow Oxygen Flow Rate (L/min) 3 10/29/21 14:18 10/29/21 15:18 Temperature Temperature Source Pulse Rate 108 H 110 H Respiratory Rate 27 H 30 H Respiratory Effort Respiratory Depth Respiratory Pattern Tachypnea Blood Pressure 131/66 H Blood Pressure Mean 87 Pulse Ox 90 Oxygen Delivery Method High Flow Oxygen Flow Rate (L/min) 10 Weight Weight: 150 lb 5.684 oz Body Mass Index (BMI) 22.8 Physical Exam Const Orientation / Consciousness: confused and lethargic HEENT normocephalic, head/scalp atraumatic and hearing grossly normal bilaterally Eyes Eyes Narrative: Unable to assess due to patient confusion. Neck no lymphadenopathy and supple Resp Effort and Inspection: abnormal respiratory pattern, tachypneic, respiratory distress and labored Auscultation: crackles Cardio no murmurs and no JVD Rate: tachycardic Rhythm: regular rhythm GI normal to inspection, nondistended, normoactive bowel sounds, soft to palpation and non-tender Extremity normal to inspection, full ROM and no clubbing, cyanosis or edema Skin no wounds and no jaundice Neuro Neuro Narrative: Unable to assess due to patient confusion. Psych Psych Narrative: Unable to assess due to patient confusion. Results Lab / Micro Data Result Diagrams: 10/29/21 13:40 10/29/21 13:40 Labs: Laboratory Results - last 24 hr 10/29/21 13:40: WBC 10.0, RBC 4.61, Hgb 14.4, Hct 39.9 L, MCV 86.6, MCH 31.2, MCHC 36.1 H, RDW Std Deviation 41.5, RDW Coeff of Arturo 13.4, Plt Count 149 L, MPV 9.6, Immature Gran % (Auto) 0.300, Neut % (Auto) 90.0 H, Lymph % (Auto) 5.2 L, [place] % (Auto) 4.4, Eos % (Auto) 0.0, Baso % (Auto) 0.1, Absolute Neuts (auto) 9.0 H, Absolute Lymphs (auto) 0.52 L, Nucleated RBC % 0, Differential Comment COMMENT 10/29/21 13:40: Sodium 127 L, Potassium 4.0, Chloride 90 L, Carbon Dioxide 30.0, Anion Gap 7, BUN 17, Creatinine 1.15, Estim Creat Clear Calc 46.95, Est GFR (MDRD) Af Amer 78, Est GFR (MDRD) Non-Af 65, BUN/Creatinine Ratio 14.8, Glucose 92, Calcium 8.4 L, Troponin I High Sens 28 10/29/21 13:40: Lactic Acid 1.5 10/29/21 13:40: B-Natriuretic Peptide 360.1 H Micro: Microbiology 10/29/21 13:35 Nasal Secretion SARS-CoV-2 Antigen (Rapid) - Final Radiology Impression Chest X-Ray 10/29/21 14:48 IMPRESSION: Bilateral patchy pneumonia. Electronically Signed: Gary Willis MD at 15:02 EST Tel , Service support , Assessment & Plan Assessment/Plan (1) Acute encephalopathy: PLAN: Patient is an 81-year-old male who presents to the ED at [facility] on 10/29/2021 with a chief complaint of shortness of breath and confusion. Patient will be admitted for management and evaluation of acute cephalopathy secondary to COVID-19 pneumonia. 1) acute encephalopathy secondary to COVID-19 pneumonia Patient reports with a 1 day history of progressively worsening shortness of breath with nonproductive cough and confusion. Patient nonresponsive to questions asked. Unable to obtain history per patient and family knowledge of medical history is extremely limited. Patient's vital signs are elevated with a tachycardia and tachypnea and patient is requiring 10 L of high flow oxygen to sat at 94%. Patient does not meet criteria for sepsis as there is no leukocytosis, fever or evidence of endorgan damage. Rapid Covid is POSITIVE. Chest x-ray shows bilateral patchy infiltrates, consistent with COVID-19 pneumonia. Plan; admit to ICU, initiate Decadron, obtain ABG, obtain D-dimer, obtain a CT of the brain, cycle cardiac enzymes, pulmonary consult ordered, sputum culture ordered, Legionella and strep pneumo urinary antigens ordered, CBC and CMP in a.m., Covid droplet precautions ordered. 2) CAD status post CABG CABG x4- LAD to WOLF, SVG to RCA, SVG to lateral and ramus branches of CFX 06/10/14. Follows with Dr. Flynn. 3) DM2 Accu-Cheks with sliding scale insulin ordered. Medications not reconciled at time of admission. DVT prophylaxis - Lovenox CODE STATUS: Full code Patient seen by Jesús Downing PA-C, under the supervision of Dr. Dawson. Documented by User: Dr. Yissel Dawson MD 10/29/21 17:54 HPI - General General Date of Admission: 10/29/21 [facility] Medical History (Updated 10/29/21 @ 16:34 by Jesús MENG) Abnormal result of cardiovascular function study Atherosclerotic heart disease of [place] coronary artery without angina pectoris Bronchitis CVA (cerebral vascular accident) Difficulty balancing DM type 2 (diabetes mellitus, type 2) Dyslipidemia Encounter for long-term (current) use of other medications Essential hypertension Fatigue Heart disease Hip pain, chronic Left acetabular fracture Normochromic normocytic anemia Osteoporosis PMR (polymyalgia rheumatica) Premature ventricular contractions Rib fractures Shoulder pain SOB (shortness of breath) Steroid dependent Stroke-like symptoms TIA (transient ischemic attack) Medical History unable to obtain Home Medications insulin glargine 18 units SC DAILY 09/28/16 [History Last Taken 04/01/19] alfalfa 1 tab PO BID 11/29/17 [History Last Taken 04/01/19] calcium carbonate-vitamin D3 1 tab PO BID MDD bones 03/18/19 [History Last Taken 04/01/19] pramipexole 1.5 mg PO QHS 03/18/19 [History Last Taken 04/01/19] atorvastatin 40 mg tablet 20 mg PO QHS #30 tab 04/20/20 [Rx Last Taken Unknown] prednisone 10 mg tablet 10 mg PO DAILY tab 08/06/20 [History Last Taken Unknown] comp.stocking,knee,long,medium #2 each 02/08/21 [Rx Last Taken Unknown] carvedilol 6.25 mg tablet 6.25 mg PO BID #180 tab 05/11/21 [Rx Last Taken Unknown] Disability placard #1 ea NS 07/26/21 [Rx Last Taken Unknown] bumetanide 1 mg tablet 1 mg PO Q OTHER DAY #15 tab 07/26/21 [Rx Last Taken Unknown] clopidogrel 75 mg tablet 75 mg PO DAILY #30 tablet 07/26/21 [Rx Last Taken Unknown] galantamine 16 mg 24 hr capsule,extended release 16 mg PO QAM #30 cap 07/26/21 [Rx Last Taken Unknown] memantine 10 mg tablet 10 mg PO BID #60 tab 07/26/21 [Rx Last Taken Unknown] oxybutynin chloride 5 mg tablet,extended release 24 hr 5 mg PO .every other day #30 tab 07/26/21 [Rx Last Taken Unknown] potassium chloride 10 mEq capsule,extended release 10 meq PO Q OTHER DAY #15 cap 07/26/21 [Rx Last Taken Unknown] cephalexin 500 mg PO Q6 #40 capsule 08/12/21 [Rx Last Taken Unknown] Allergy/AdvReac Type Severity Reaction Status Date / Time codeine Allergy Hives Verified 08/11/21 19:46 gabapentin Allergy Rash Verified 08/11/21 19:46 hydrocodone bitartrate Allergy Rash Verified 08/11/21 19:46 [From Vicodin] oxycodone [From OxyContin] Allergy Rash Verified 08/11/21 19:46 oxycodone HCl [From Percocet] Allergy Hives Verified 08/11/21 19:46 Penicillins [PCN] Allergy Rash Verified 08/11/21 19:46 Sulfa (Sulfonamide Allergy Rash Verified 08/11/21 19:46 Antibiotics) tramadol Allergy Unknown Verified 08/11/21 19:46 glyburide AdvReac Diarrhea Verified 08/11/21 19:46 metformin AdvReac Diarrhea Verified 08/11/21 19:46 Family History Father No problems noted. Sister Leukemia Surgical History History of coronary artery bypass surgery (~06/10/14) Surgical History unable to obtain Social History Smoking Status: Never smoker alcohol intake: never substance use type: does not use caffeine: No what type of physical activity do you participate in: other details: PT frequency: 1-2 times per week duration: 30-45 minutes/day seatbelt use: always do you feel safe at home: Yes Results Lab / Micro Data Result Diagrams: 10/29/21 13:40 10/29/21 13:40 Charges/Coding Addendum Addendum: This patient was seen in conjunction with YUSRA Johnson. I have independently interviewed and examined the patient and reviewed pertinent historical, laboratory, and other data. Please refer to YUSRA Johnson's note for his patient's presentation, findings, and recommendations. I have reviewed and his note and concur with his documentation 81-year-old male with past medical history of CAD status post CABG(in 2013), history of CVA in 2016 and 2019, SHERMAN, noncompliant with CPAP, hypertension, hyperlipidemia who comes in with complaints of shortness of breath ongoing for 2 days. Patient is unvaccinated. At the time of being seen, patient is unresponsive to self. According to the nephew who does not know too much, he stated that he last spoke to the uncle 2 days prior to admission and he was his normal self. 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 At the time of being seen, he is not oriented even to self. He is lethargic. Physical Exam: Gen:Lethargic, not oriented to person, place or time, not pale, not jaundiced CVS:HS I +II, regular, no murmurs RESP: Diminished at lung bases GI: BS present and normal, soft, nontender, no palpable organs EXT:No edema ASSESSMENT: 1. Acute metabolic encephalopathy 2. Acute hypoxic respiratory failure 3. Acute COVID-19 pneumonia 4. Hypertensive urgency 5. Probable Acute exacerbation of HF with reduced EF, EF 55% 6. CAD status post CABG 7. Hypertension 8. Hyperlipidemia 9. Type II DM 10. SHERMAN noncompliant with CPAP 11. Dementia, likely vascular Plan: Admit to ICU Pulmonology consult Lasix 40 mg IV twice daily Continue with Decadron Trend Cardiac enzymes Monitor blood pressure Insulin sliding scale I discussed and explained in details the various types of CODE STATUS-full code, DNR CCA, DNR CC. Patient's is his POA for healthcare. She stated that patient would want everything done to keep him alive. Time spent discussing CODE STATUS 16 minutes Visit Charges Inpatient E&M: 91883 Init Hosp L3 Procedures Hospitalists Procedures: 20773 Advncd Care Plan 30 Min
[2021-10-29] MEDS: Furosemide 40 MG/4 ML Vial IV (16:19)
[2021-10-29 16:36] LABS: Magnesium 1.9 mg/dL (1.6-2.6)
[2021-10-29 17:30] LABS: Allen Test Positive; Base Excess -1 mmol/L (-2 to +2); Bicarbonate 22.7 mmol/L (22-26); Blood Gas Specimen Type ART; O2 Delivery Device HFNC; PO2 66 mmHG (75-100); SITE L Radial; SO2 95 % (95-99); Total Carbon Dioxide 24 mmol/L
[2021-10-29 18:01] LABS: Bedside Glucose 109 mg/dL (70-110)
[2021-10-29 18:15] LABS: Troponin-I HS 49 pg/mL (3.0-78.0)
[2021-10-29 18:19] LABS: AST(SGOT) 46 U/L (15-37); Alanine Aminotransfer ALT/SGPT 54 U/L (16-61); Alkaline Phosphatase 114 U/L (45-117); Bilirubin, Direct 0.44 mg/dL (0.00-0.30); Globulin 3.2 g/dL (2.2-4.2); Protein, Total 6.2 g/dL (6.4-8.2)
[2021-10-29 18:51] LABS: D-Dimer Quantitative (DVT/PE) 2.82 FEU/ug/m (0.27-0.49)
--- NOTE | 2021-10-29 19:13 | CT_ITS ---
STUDY: CTA CHEST REASON FOR EXAM: Male, 81 years old. Acute PE RADIATION DOSAGE (If Supplied By Facility): CTDIvol = ( 12.35 ) mGy, DLP = ( 461.83 ) mGycm TECHNIQUE: The examination was performed with the intravenous administration of IV 100mL [id number]-[id number]. Post-processing of the angiographic images was performed, with multiplanar reformation and 3D reconstruction. Individualized dose optimization techniques were used for this CT. COMPARISON: Chest x-ray dated October 29, 2021 FINDINGS: Mild patchy consolidation is present in the right upper and lower lobes with perihilar predominance. A small infiltrate with mild edema is seen in the right middle lobe. Small perihilar infiltrates are also present in the left upper and lower lobes. Superimposed groundglass edema is consistent with radiologic findings associated with Covid 19. No pleural effusion is present. Normal enhancement of the main pulmonary artery and right and left pulmonary arteries. Normal enhancement of the bilateral peripheral pulmonary arteries. There is no demonstrated pulmonary embolism. There is atherosclerotic calcification of the aortic arch with tortuosity. There is no demonstrated aortic dissection. Sternal cerclage wires and vascular clips are present from a prior sternotomy and coronary artery bypass graft procedure (CABG). Normal heart size. No pericardial effusion is present. Normal mediastinum. Normal hilar regions. Normal visualized trachea and bronchi. The lungs are well expanded. Normal pleura. Normal chest wall structures. There are degenerative changes of thoracic spine. Moderate prominence of the right kidney extrarenal pelvis suggests UPJ stenosis/pelviectasis. A tiny parenchymal stone is also seen in the right kidney. No acute process seen in the remaining upper abdominal structures. CT/CTA Chest W/WO Contrast IMPRESSION: 1. Mild patchy consolidation is present in the right upper and lower lobes with perihilar predominance. A small infiltrate with mild edema is seen in the right middle lobe. Small perihilar infiltrates are also present in the left upper and lower lobes. Superimposed groundglass edema is consistent with radiologic findings associated with Covid 19. No pleural effusion is present. 2. No demonstrated pulmonary embolism or arterial dissection. Electronically Signed: Jose Ren MD at 22:07 EST , Service support ,
[2021-10-29 20:52] LABS: Troponin-I HS 55 pg/mL (3.0-78.0)
[2021-10-29] MEDS: Menthol/Lanolin/Calamine/Znox 113 GM Tube 1 APPLIC TOPICAL (22:08)
[2021-10-29] MEDS: Erythromycin Base 1 OPTH.TUBE 1 APPLIC RIGHT EYE (22:09)
[2021-10-29 22:30] LABS: Bedside Glucose 120 mg/dL (70-110)
--- NOTE | 2021-10-29 22:35 | PCM.PN.BLA ---
Progress Note Nurse report that patient has swollen eyes with hemorrhage likely subconjunctival hemorrhage. CTA chest is negative for PE. Will stop Lovenox at this time. SCDs ordered.
[2021-10-30] VITALS (27 sets, daily range): BP systolic 83–123; BP diastolic 53–73; PULSE 76–96; RESP 17–28; TEMP 36.5–36.9; O2SAT 92–98
[2021-10-30 01:14] LABS: Troponin-I HS 60 pg/mL (3.0-78.0)
[2021-10-30 04:39] LABS: Absolute Neutrophil Count 9.9 X10^3/uL (2.0-7.7); Basophil# 0.02 X10^3/uL; Basophil% 0.2 % (0-1); Hematocrit 38.4 % (40-54); Hemoglobin 13.4 g/dL (13.0-16.5); Lymphocyte % 2.8 % (19-41); Mean Corp Hgb Conc 34.9 g/dL (32-36); Mean Corpuscular Hgb 29.8 pg (27.0-32.0); Mean Corpuscular Volume 85.5 fL (80-94); Mean Platelet Vol. 9.8 fl (6.2-12.0); Monocyte# 0.36 X10^3/uL; Monocyte% 3.4 % (0-10); NRBC Flagged by Analyzer 0 % (0-5); Neutrophil # 9.92 X10^3/uL (2.7-7.7); POSITIVE DIFFERENTIAL YES; POSITIVE MORPHOLOGY YES; Platelet Count 126 K/mm3 (150-450); RBC Distribution Width CV 13.3 % (11.6-14.6); RBC Distribution Width SD 41.5 fl (35.1-43.9); Red Blood Count 4.49 M/mm3 (4.6-6.2); White Blood Count 10.7 K/mm3 (4.4-11.0)
[2021-10-30 05:01] LABS: ALB/GLOB Ratio 0.8 RATIO (0.9-2.4); AST(SGOT) 41 U/L (15-37); Alanine Aminotransfer ALT/SGPT 45 U/L (16-61); Albumin, Serum 2.6 g/dL (3.2-5.0); Alkaline Phosphatase 87 U/L (45-117); Anion Gap 13 (5-15); BUN 25 mg/dL (7-18); Chloride 90 mmol/L (98-107); Creatinine, Serum 1.25 mg/dL (0.70-1.30); EST Glomerular Filtration Rate 59 mL/min (>60); Est Glom Filt Rate - Afr Amer 71 mL/min (>60); Estimated Creatinine Clearance 40.53 ml/min; Globulin 3.2 g/dL (2.2-4.2); Glucose 103 mg/dL (74-106); Potassium 3.7 mmol/L (3.5-5.1); Protein, Total 5.8 g/dL (6.4-8.2); Sodium Level 129 mmol/L (136-145)
[2021-10-30 05:21] LABS: Bedside Glucose 99 mg/dL (70-110)
[2021-10-30 05:54] LABS: Differential Comment SCANNED; Differential Indicated SCAN CRITERIA MET
--- NOTE | 2021-10-30 07:14 | CON.PCM.CC_ITS ---
Assessment & Plan Assessment/Plan (1) Respiratory failure with hypoxia: (2) Pneumonia due to 2019 novel coronavirus: (3) Dementia: QUALIFIERS: Dementia type: Alzheimer's Alzheimer's disease onset: late-onset Dementia behavioral disturbance: without behavioral disturbance Qualified Code(s): G30.1 - Alzheimer's disease with late onset; F02.80 - Dementia in other diseases classified elsewhere without behavioral disturbance PLAN: RECOMMENDATIONS: 1. Continue Decadron (11/09/2020) and Remdesivir (11/02/2021) 2. Check CPK. If greater than 75, consider consult to ID to see if baricitinib would be helpful 3. Labs to monitor for complications of therapy 4. Wean oxygen as tolerated 5. Okay to leave the intensive care unit IMPRESSIONS: 1. Acute hypoxic respiratory failure secondary to COVID-19 pneumonia Patient appears to be stabilizing from a respiratory standpoint. Still requiring significant FiO2 to maintain saturations, so unable to go home. Patient has been appropriately placed on Decadron and Remdesivir. We will need to monitor for complications. Will obtain a CPK to see if patient is a candidate for baricitinib. If greater than 75, may need to consider infectious disease co nsult. Patient history is very difficult to obtain at this time, but does not appear to have underlying obstructive lung disease that would require further interventions. 2. Hypertensive urgency with history of CAD status post CABG Patient appears to be hypotensive at this time. Hold antihypertensive medications. Continue to monitor closely. Patient did have a preserved ejection fraction previously. May need to reevaluate if patient remains hypotensive. However, troponin was not suggestive of a non-ST elevation [place]. Patient did receive significant diuresis yesterday. 3. Dementia/noncompliance with SHERMAN/diabetes/hyperlipidemia/hypertension/advanced age/nonvaccinated status Complicates care, management, recovery and prognosis. We will need to monitor for hyperglycemia. Antihypertensives have been held. HPI Consult Data Date of Consult: 10/30/21 HPI Narrative HPI Narrative: JADE CHAVIRA is a 81 M, with past medical history listed below, who presents [facility] 10/29/2021 secondary to reported shortness of breath. Patient reportedly suffers from dementia and is not able to provide much history. Family members were able to provide some history that they think he is on a blood thinner, but denied any history of CHF or COPD. Patient has had a cough productive of clear to white sputum. In the ER, patient was noted to be 99.5 ?F, but tachypneic at 35 breaths/min and hypertensive at 195/92. Patient initially was noted to be 85% on 3 L and eventually required high flow oxygen to maintain saturations. Laboratory work-up showed a white blood cell count of 10, hemoglobin of 14.4 and a platelet count of 149. Creatinine was 1.15 and lactate was 1.5. High-sensitivity troponin was normal, but BNP was slightly elevated at 360. Chest x-ray showed bilateral infiltrates and patient subsequently had a CTA of the chest showing no PE, but confirming bilateral groundglass opacities. Patient subsequently tested positive for COVID-19. Since being the intensive care unit, patient has done better. Patient is currently on 9 L/min. Patient does have ecchymosis and a subconjunctival hemorrhage noted of the right eye. Patient is unable to tell me if he had a fall. Patient states he was not vaccinated against COVID-19 and is surprised that this would be what is wrong. Patient denies a cough, but is actively coughing during the examination. [facility] Medical History Abnormal result of cardiovascular function study Atherosclerotic heart disease of [place] coronary artery without angina pectoris Bronchitis CVA (cerebral vascular accident) Difficulty balancing DM type 2 (diabetes mellitus, type 2) Dyslipidemia Encounter for long-term (current) use of other medications Essential hypertension Fatigue Heart disease Hip pain, chronic Left acetabular fracture Normochromic normocytic anemia Osteoporosis PMR (polymyalgia rheumatica) Premature ventricular contractions Rib fractures Shoulder pain SOB (shortness of breath) Steroid dependent Stroke-like symptoms TIA (transient ischemic attack) Medical History unable to obtain Home Medications insulin glargine 18 units SC DAILY 09/28/16 [History Last Taken 04/01/19] calcium carbonate-vitamin D3 1 tab PO DAILY MDD bones 03/18/19 [History Last Taken 04/01/19] pramipexole 1.5 mg PO QHS 03/18/19 [History Last Taken 04/01/19] prednisone 10 mg tablet 7.5 mg PO DAILY tab 08/06/20 [History Last Taken Unknown] comp.stocking,knee,long,medium #2 each 02/08/21 [Rx Last Taken Unknown] Disability [place] #1 ea NS 07/26/21 [Rx Last Taken Unknown] atorvastatin 20 mg PO QHS 10/29/21 [History Last Taken Unknown] carvedilol [Coreg] 6.25 mg PO BID 10/29/21 [History Last Taken Unknown] clopidogrel 75 mg PO DAILY 10/29/21 [History Last Taken Unknown] galantamine 16 mg PO QAM 10/29/21 [History Last Taken Unknown] memantine 10 mg PO BID 10/29/21 [History Last Taken Unknown] Allergy/AdvReac Type Severity Reaction Status Date / Time codeine Allergy Hives Verified 08/11/21 19:46 gabapentin Allergy Rash Verified 08/11/21 19:46 hydrocodone bitartrate Allergy Rash Verified 08/11/21 19:46 [From Vicodin] oxycodone [From OxyContin] Allergy Rash Verified 08/11/21 19:46 oxycodone HCl [From Percocet] Allergy Hives Verified 08/11/21 19:46 Penicillins [PCN] Allergy Rash Verified 08/11/21 19:46 Sulfa (Sulfonamide Allergy Rash Verified 08/11/21 19:46 Antibiotics) tramadol Allergy Unknown Verified 08/11/21 19:46 glyburide AdvReac Diarrhea Verified 08/11/21 19:46 metformin AdvReac Diarrhea Verified 08/11/21 19:46 Family History Father No problems noted. Sister Leukemia Family History unable to obtain Surgical History History of coronary artery bypass surgery (~06/10/14) Surgical History unable to obtain Social History Smoking Status: Never smoker alcohol intake: never substance use type: does not use caffeine: No what type of physical activity do you participate in: other details: PT frequency: 1-2 times per week duration: 30-45 minutes/day seatbelt use: always do you feel safe at home: Yes ROS Review of Systems ROS Unobtainable: due to encephalopathy Physical Exam Const no apparent distress Orientation / Consciousness: confused HEENT normocephalic and head/scalp atraumatic HEENT Narrative: Appears to be hard of hearing Eyes Eyes Narrative: Periorbital ecchymosis and subconjunctival hemorrhage of right eye. Visual acuity intact. Neck no lymphadenopathy and supple Chest inspection of chest normal Chest: symmetrical chest wall rise; Negative for crepitus Resp Auscultation: rales and diminished lung sounds; Negative for rhonchi or wheezes Cardio no murmurs and no JVD Rate: tachycardic Rhythm: regular rhythm GI normal to inspection, nondistended, normoactive bowel sounds, soft to palpation and non-tender Extremity normal to inspection, full ROM and no clubbing, cyanosis or edema Skin no wounds and no jaundice Neuro Neuro Narrative: Unable to assess due to patient confusion. Appears to be nonfocal Psych Psych Narrative: Unable to assess due to patient confusion. Lab / Micro Data Result Diagrams: 10/30/21 04:25 10/30/21 04:25 Labs: Laboratory Results - last 24 hr 10/29/21 00:25: Troponin I High Sens 60 10/29/21 13:40: WBC 10.0, RBC 4.61, Hgb 14.4, Hct 39.9 L, MCV 86.6, MCH 31.2, MCHC 36.1 H, RDW Std Deviation 41.5, RDW Coeff of Arturo 13.4, Plt Count 149 L, MPV 9.6, Immature Gran % (Auto) 0.300, Neut % (Auto) 90.0 H, Lymph % (Auto) 5.2 L, [place] % (Auto) 4.4, Eos % (Auto) 0.0, Baso % (Auto) 0.1, Absolute Neuts (auto) 9.0 H, Absolute Lymphs (auto) 0.52 L, Nucleated RBC % 0, Differential Comment COMMENT 10/29/21 13:40: Sodium 127 L, Potassium 4.0, Chloride 90 L, Carbon Dioxide 30.0, Anion Gap 7, BUN 17, Creatinine 1.15, Estim Creat Clear Calc 46.95, Est GFR (MDRD) Af Amer 78, Est GFR (MDRD) Non-Af 65, BUN/Creatinine Ratio 14.8, Glucose 92, Calcium 8.4 L, Troponin I High Sens 28 10/29/21 13:40: Lactic Acid 1.5 10/29/21 13:40: B-Natriuretic Peptide 360.1 H 10/29/21 13:40: Magnesium 1.9 10/29/21 17:45: Total Bilirubin 1.50 H, Direct Bilirubin 0.44 H, AST 46 H, ALT 54, Alkaline Phosphatase 114, C-React Prot Ext Range 81.60 H, Total Protein 6.2 L, Albumin 3.0 L, Globulin 3.2 10/29/21 17:45: Procalcitonin Cancelled 10/29/21 17:45: D-Dimer Quant (PE/DVT) Cancelled 10/29/21 17:45: Troponin I High Sens 49 10/29/21 17:54: POC Glucose 109 10/29/21 18:25: D-Dimer Quant (PE/DVT) 2.82 H* 10/29/21 20:00: Troponin I High Sens 55 10/29/21 22:05: POC Glucose 120 H 10/30/21 04:25: WBC 10.7, RBC 4.49 L, Hgb 13.4, Hct 38.4 L, MCV 85.5, MCH 29.8, MCHC 34.9, RDW Std Deviation 41.5, RDW Coeff of Arturo 13.3, Plt Count 126 L, MPV 9.8, Immature Gran % (Auto) 0.600, Neut % (Auto) 93.0 H, Lymph % (Auto) 2.8 L, [place] % (Auto) 3.4, Eos % (Auto) 0.0, Baso % (Auto) 0.2, Absolute Neuts (auto) 9.9 H, Absolute Lymphs (auto) 0.30 L, Nucleated RBC % 0, Differential Comment SCANNED 10/30/21 04:25: Sodium 129 L, Potassium 3.7, Chloride 90 L, Carbon Dioxide 26.0, Anion Gap 13, BUN 25 H, Creatinine 1.25, Estim Creat Clear Calc 40.53, Est GFR (MDRD) Af Amer 71, Est GFR (MDRD) Non-Af 59 L, BUN/Creatinine Ratio 20.0, Glucose 103, Calcium 8.0 L, Total Bilirubin 1.10 H, AST 41 H, ALT 45, Alkaline Phosphatase 87, Total Protein 5.8 L, Albumin 2.6 L, Globulin 3.2, Albumin/Globulin Ratio 0.8 L 10/30/21 05:10: POC Glucose 99 Micro: Microbiology 10/29/21 13:35 Nasal Secretion SARS-CoV-2 Antigen (Rapid) - Final ABG Data ABG results: ABG 10/29/21 17:23 Specimen Type ART Sample Site L Radial pH 7.50 H Bicarbonate Actual 22.7 Total CO2 24 Base Excess -1 O2 Saturation 95 ABG pCO2 29.0 L ABG pO2 66 L Eduar Test Positive O2 Delivery Device HFNC Liter Flow 10.0 Radiology Impression Chest X-Ray 10/29/21 14:48 IMPRESSION: Bilateral patchy pneumonia. Electronically Signed: Gary Willis MD at 15:02 EST Tel , Service support , Brain CT 10/29/21 16:11 IMPRESSION: Chronic involutional changes of the brain. Electronically Signed: Gary Willis MD at 17:11 EST Tel , Service support , Chest CTA 10/29/21 19:13 IMPRESSION: 1. Mild patchy consolidation is present in the right upper and lower lobes with perihilar predominance. A small infiltrate with mild edema is seen in the right middle lobe. Small perihilar infiltrates are also present in the left upper and lower lobes. Superimposed groundglass edema is consistent with radiologic findings associated with Covid 19. No pleural effusion is present. 2. No demonstrated pulmonary embolism or arterial dissection. Electronically Signed: Jose Ren MD at 22:07 EST , Service support , Charges/Coding Visit Charges Inpatient E&M: 83040 Init Hosp L3
[2021-10-30 07:57] LABS: CPK Total, Creatine Kinase 189 U/L (39-308)
--- NOTE | 2021-10-30 09:21 | PN.HOSP_ITS ---
Subjective Subjective Follow-up on acute hypoxic respiratory failure/acute COVID-19 pneumonia: Patient was seen and examined. He is much more awake today. He is alert oriented x3. He denied any new complaints. He was seen eating his breakfast. Oxygen level is 7 L. Objective Data Objective Data Vital Signs: Vital Signs Temp Pulse Resp BP Pulse Ox 97.7 F L 87 20 H 119/69 96 10/30/21 08:00 10/30/21 09:00 10/30/21 09:00 10/30/21 09:00 10/30/21 09:00 Oxygen Flow Rate (L/min) 7 Oxygen Delivery Method Nasal Cannula Weight: 64 kg Body Mass Index (BMI) 19.5 Intake & Output: Intake and Output for Last 24 Hours 10/28/21 10/29/21 10/30/21 23:59 23:59 23:59 Intake Total 0 / 0 470 / 470 Balance 0 / 0 470 / 470 Lab / Micro Data Result Diagrams: 10/30/21 04:25 10/30/21 04:25 Labs: Laboratory Results - last 24 hr 10/29/21 00:25: Troponin I High Sens 60 10/29/21 13:40: WBC 10.0, RBC 4.61, Hgb 14.4, Hct 39.9 L, MCV 86.6, MCH 31.2, MCHC 36.1 H, RDW Std Deviation 41.5, RDW Coeff of Arturo 13.4, Plt Count 149 L, MPV 9.6, Immature Gran % (Auto) 0.300, Neut % (Auto) 90.0 H, Lymph % (Auto) 5.2 L, [place] % (Auto) 4.4, Eos % (Auto) 0.0, Baso % (Auto) 0.1, Absolute Neuts (auto) 9.0 H, Absolute Lymphs (auto) 0.52 L, Nucleated RBC % 0, Differential Comment COMMENT 10/29/21 13:40: Sodium 127 L, Potassium 4.0, Chloride 90 L, Carbon Dioxide 30.0, Anion Gap 7, BUN 17, Creatinine 1.15, Estim Creat Clear Calc 46.95, Est GFR (MDRD) Af Amer 78, Est GFR (MDRD) Non-Af 65, BUN/Creatinine Ratio 14.8, Glucose 92, Calcium 8.4 L, Troponin I High Sens 28 10/29/21 13:40: Lactic Acid 1.5 10/29/21 13:40: B-Natriuretic Peptide 360.1 H 10/29/21 13:40: Magnesium 1.9 10/29/21 17:45: Total Bilirubin 1.50 H, Direct Bilirubin 0.44 H, AST 46 H, ALT 54, Alkaline Phosphatase 114, C-React Prot Ext Range 81.60 H, Total Protein 6.2 L, Albumin 3.0 L, Globulin 3.2 10/29/21 17:45: Procalcitonin Cancelled 10/29/21 17:45: D-Dimer Quant (PE/DVT) Cancelled 10/29/21 17:45: Troponin I High Sens 49 10/29/21 17:54: POC Glucose 109 10/29/21 18:25: D-Dimer Quant (PE/DVT) 2.82 H* 10/29/21 20:00: Troponin I High Sens 55 10/29/21 22:05: POC Glucose 120 H 10/30/21 04:25: WBC 10.7, RBC 4.49 L, Hgb 13.4, Hct 38.4 L, MCV 85.5, MCH 29.8, MCHC 34.9, RDW Std Deviation 41.5, RDW Coeff of Arturo 13.3, Plt Count 126 L, MPV 9.8, Immature Gran % (Auto) 0.600, Neut % (Auto) 93.0 H, Lymph % (Auto) 2.8 L, [place] % (Auto) 3.4, Eos % (Auto) 0.0, Baso % (Auto) 0.2, Absolute Neuts (auto) 9.9 H, Absolute Lymphs (auto) 0.30 L, Nucleated RBC % 0, Differential Comment SCANNED 10/30/21 04:25: Sodium 129 L, Potassium 3.7, Chloride 90 L, Carbon Dioxide 26.0, Anion Gap 13, BUN 25 H, Creatinine 1.25, Estim Creat Clear Calc 40.53, Est GFR (MDRD) Af Amer 71, Est GFR (MDRD) Non-Af 59 L, BUN/Creatinine Ratio 20.0, Glucose 103, Calcium 8.0 L, Total Bilirubin 1.10 H, AST 41 H, ALT 45, Alkaline Phosphatase 87, Total Protein 5.8 L, Albumin 2.6 L, Globulin 3.2, Albumin/Globulin Ratio 0.8 L 10/30/21 04:25: Total Creatine Kinase 189 10/30/21 05:10: POC Glucose 99 Micro: Microbiology 10/29/21 13:35 Nasal Secretion SARS-CoV-2 Antigen (Rapid) - Final ABG Data ABG results: ABG 10/29/21 17:23 Specimen Type ART Sample Site L Radial pH 7.50 H Bicarbonate Actual 22.7 Total CO2 24 Base Excess -1 O2 Saturation 95 ABG pCO2 29.0 L ABG pO2 66 L Eduar Test Positive O2 Delivery Device HFNC Liter Flow 10.0 Radiography Diagnostic Testing: Radiology Impression Chest X-Ray 10/29/21 14:48 IMPRESSION: Bilateral patchy pneumonia. Electronically Signed: Gary Willis MD at 15:02 EST Tel , Service support , Brain CT 10/29/21 16:11 IMPRESSION: Chronic involutional changes of the brain. Electronically Signed: Gary Willis MD at 17:11 EST Tel , Service support , Chest CTA 10/29/21 19:13 IMPRESSION: 1. Mild patchy consolidation is present in the right upper and lower lobes with perihilar predominance. A small infiltrate with mild edema is seen in the right middle lobe. Small perihilar infiltrates are also present in the left upper and lower lobes. Superimposed groundglass edema is consistent with radiologic findings associated with Covid 19. No pleural effusion is present. 2. No demonstrated pulmonary embolism or arterial dissection. Electronically Signed: Jose Ren MD at 22:07 EST , Service support , Physical Exam Narrative Physical exam: General: Alert, Oriented x3, Cooperative, No apparent distress, Well developed HEENT: Right eye hemorrhagic chemosis, subconjunctival hemorrhage Oral: Moist Mucosa Neck: Supple Lungs: Diminished to auscultation Cardiovascular: HS I+II, regular, no murmurs Abdomen: Bowel Sounds Present, Soft, Non Tender Extremities: No edema Assessment & Plan Assessment/Plan (1) Acute encephalopathy: (2) Pneumonia due to 2019 novel coronavirus: (3) Respiratory failure with hypoxia: QUALIFIERS: Chronicity: acute on chronic Qualified Code(s): J96.21 - Acute and chronic respiratory failure with hypoxia (4) DM type 2 (diabetes mellitus, type 2): QUALIFIERS: Diabetes mellitus complication status: with unspec ified complications Qualified Code(s): E11.8 - Type 2 diabetes mellitus with unspecified complications PLAN: 1. Acute hypoxic respiratory failure secondary to Acute COVID-19 pneumonia, improved Currently on 7L oxygen Continue on Remdesivir and Dexamethasone Wean off oxygen for Spo2 >90%, encourage use of IS 2. Acute metabolic encephalopathy, appears to have resolved 3. Acute severe right conjunctival hemorrhage/chemosis, unclear etiology, Discussed with ophthalmology; continue on erythromycin ointment Will hold off Plavix 4. Hypertensive urgency, resolved Will continue to monitor and hold off Coreg 4. Probable Acute exacerbation of HF with reduced EF, EF 55% Had IV Lasix in the ED. Will monitor 5. Type II DM, BS are controlled, continue on ISS 6. Rest of chronic medical conditions - CAD status post CABG/Hypertension/Hyperlipidemia/SHERMAN, noncompliant/Dementia Continue on Atorvastatin, Namenda Charges/Coding Visit Charges Inpatient E&M: 04784 [facility] Hosp L3
[2021-10-30] MEDS: dexAMETHasone 10 MG/ML Vial 6 MG IV (10:54)
[2021-10-30] MEDS: Memantine Hydrochloride 10 MG Tablet PO ×2 (10:54→21:58)
[2021-10-30] MEDS: Galantamine Hydrobromide 4 MG Tablet 8 MG PO ×2 (10:54→21:57)
[2021-10-30] MEDS: Menthol/Lanolin/Calamine/Znox 113 GM Tube 1 APPLIC TOPICAL ×4 (10:55→22:10)
[2021-10-30] MEDS: 0.9% Saline Lock 10 ML Syringe IV ×2 (10:55→22:23)
[2021-10-30] MEDS: Erythromycin Base 1 OPTH.TUBE 1 APPLIC RIGHT EYE ×4 (10:57→22:10)
[2021-10-30] MEDS: Calcium Carb/Vitamin D 1 TABLET Tablet PO (12:18)
[2021-10-30] MEDS: Insulin Lispro 100 UNIT/ML INSULN.PEN SC ×3 (12:20→23:41)
[2021-10-30 12:56] LABS: Bedside Glucose 249 mg/dL (70-110)
--- NOTE | 2021-10-30 15:53 | NURSING ---
report called to Sarah hogan at [facility]
--- NOTE | 2021-10-30 16:15 | NURSING ---
son aware of transfer
--- NOTE | 2021-10-30 16:38 | PCS.PANDOC ---
PANDEMIC DOCUMENTATION INITIATED: Date: 06/21/2021 Time: 190
[2021-10-30 17:11] LABS: Bedside Glucose 241 mg/dL (70-110)
[2021-10-30] MEDS: Atorvastatin Calcium 20 MG Tablet PO (21:57)
[2021-10-30] MEDS: Pramipexole Di-HCl 1 MG Tablet 1.5 MG PO (21:57)
[2021-10-31] VITALS (11 sets, daily range): BP systolic 122–147; BP diastolic 69–83; PULSE 61–95; RESP 18; TEMP 36.2–36.7; O2SAT 90–96
[2021-10-31] MEDS: Acetaminophen 325 MG Tablet 650 MG PO (04:40)
[2021-10-31 06:38] LABS: ALB/GLOB Ratio 0.6 RATIO (0.9-2.4); AST(SGOT) 38 U/L (15-37); Alanine Aminotransfer ALT/SGPT 40 U/L (16-61); Albumin, Serum 2.1 g/dL (3.2-5.0); Alkaline Phosphatase 81 U/L (45-117); Anion Gap 12 (5-15); BUN 48 mg/dL (7-18); BUN/Creat Ratio 37.5 RATIO (10-20); Chloride 92 mmol/L (98-107); Creatinine, Serum 1.28 mg/dL (0.70-1.30); EST Glomerular Filtration Rate 57 mL/min (>60); Est Glom Filt Rate - Afr Amer 69 mL/min (>60); Estimated Creatinine Clearance 39.77 ml/min; Globulin 3.6 g/dL (2.2-4.2); Glucose 220 mg/dL (74-106); Potassium 4.1 mmol/L (3.5-5.1); Protein, Total 5.7 g/dL (6.4-8.2); Sodium Level 125 mmol/L (136-145)
[2021-10-31 06:40] LABS: Absolute Lymphocyte Count 0.22 X10^3/uL (0.83-4.51); Absolute Neutrophil Count 9.7 X10^3/uL (2.0-7.7); Basophil# 0.02 X10^3/uL; Basophil% 0.2 % (0-1); Hemoglobin 12.7 g/dL (13.0-16.5); Lymphocyte # 0.22 X10^3/ul (0.83-4.51); Lymphocyte % 2.1 % (19-41); Mean Corp Hgb Conc 37.4 g/dL (32-36); Mean Corpuscular Hgb 30.2 pg (27.0-32.0); Mean Platelet Vol. 10.3 fl (6.2-12.0); Monocyte% 3.8 % (0-10); NRBC Flagged by Analyzer 0 % (0-5); Neutrophil # 9.74 X10^3/uL (2.7-7.7); Neutrophil % 93.3 % (47-70); POSITIVE COUNT YES; POSITIVE DIFFERENTIAL YES; Platelet Count 122 K/mm3 (150-450); RBC Distribution Width CV 13.2 % (11.6-14.6); RBC Distribution Width SD 39.2 fl (35.1-43.9); White Blood Count 10.4 K/mm3 (4.4-11.0)
[2021-10-31 06:42] LABS: Differential Indicated SCAN CRITERIA MET
[2021-10-31] MEDS: Insulin Lispro 100 UNIT/ML INSULN.PEN SC ×4 (06:47→21:22)
[2021-10-31 06:55] LABS: Bedside Glucose 211 mg/dL (70-110)
[2021-10-31 07:02] LABS: Differential Comment SCANNED
--- NOTE | 2021-10-31 08:33 | PN.CC_ITS ---
Assessment & Plan Assessment/Plan (1) Respiratory failure with hypoxia: QUALIFIERS: Chronicity: acute on chronic Qualified Code(s): J96.21 - Acute and chronic respiratory failure with hypoxia (2) Pneumonia due to 2019 novel coronavirus: (3) Dementia: QUALIFIERS: Dementia type: Alzheimer's Alzheimer's disease onset: late-onset Dementia behavioral disturbance: without behavioral disturbance Qualified Code(s): G30.1 - Alzheimer's disease with late onset; F02.80 - Dementia in other diseases classified elsewhere without behavioral disturbance PLAN: RECOMMENDATIONS: 1. Continue Decadron (11/09/2020) and Remdesivir (11/02/2021) 2. If oxygenation worsens, check CRP. If greater than 75, consider consult to ID to see if baricitinib would be helpful 3. Labs to monitor for complications of therapy 4. Wean oxygen as tolerated 5. Hemodynamically stable on minimal nasal cannula oxygen. Will sign off from a pulmonary perspective. 6. Call if patient decompensates or we can be helpful in any way IMPRESSIONS: 1. Acute hypoxic respiratory failure secondary to COVID-19 pneumonia Patient appears to be stabilizing from a respiratory standpoint. Still requiring significant FiO2 to maintain saturations, so unable to go home. Patient has been appropriately placed on Decadron and Remdesivir. We will need to monitor for complications. If oxygenation worsens, consider obtaining a CRP to see if patient is a candidate for baricitinib. If greater than 75, may need to consider infectious disease consult. Patient history is very difficult to obtain at this time, but does not appear to have underlying obstructive lung disease that would require further interventions. 2. Hypertensive urgency with history of CAD status post CABG Patient appears to be normotensive at this time. Likely okay to reinitiate antihypertensive medications in a stepwise fashion. Continue to monitor closely. Patient did have a preserved ejection fraction previously. May need to reevaluate if patient remains hypotensive. However, troponin was not suggestive of a non-ST elevation [place]. Patient did receive significant diuresis yesterday. 3. Dementia/noncompliance with SHERMAN/d iabetes/hyperlipidemia/hypertension/advanced age/nonvaccinated status Complicates care, management, recovery and prognosis. We will need to monitor for hyperglycemia. Antihypertensives have been held. Subjective Subjective Patient did well overnight. Patient was transferred from the intensive care unit, but oxygenation continues to improve. Patient continues to report that he did not receive the vaccination, but is now stating that he thinks his right eye issue came from EMS. Patient is not able to provide any mechanism and reportedly had told nursing yesterday that he thought it was his home nurse that did it. Patient is not reporting any change in acuity and describes the eye is dry. Objective Data Objective Data Vital Signs: Vital Signs Temp Pulse Resp BP Pulse Ox 36.7 C 62 18 147/82 H 96 10/31/21 04:33 10/31/21 07:01 10/31/21 04:33 10/31/21 04:33 10/31/21 07:00 Oxygen Flow Rate (L/min) 5 Oxygen Delivery Method Nasal Cannula Weight: 64.3 kg Body Mass Index (BMI) 19.5 Intake & Output: Intake and Output for Last 24 Hours 10/29/21 10/30/21 10/31/21 23:59 23:59 23:59 Intake Total 0 / 0 1345.00 / 1345.00 120 / 120 Balance 0 / 0 1345.00 / 1345.00 120 / 120 Lab / Micro Data Result Diagrams: 10/31/21 05:55 10/31/21 05:55 Labs: Laboratory Results - last 24 hr 10/30/21 12:17: POC Glucose 249 H 10/30/21 16:45: POC Glucose 241 H 10/31/21 05:55: WBC 10.4, RBC 4.20 L, Hgb 12.7 L, Hct 34.0 L, MCV 81.0 D, MCH 30.2, MCHC 37.4 H D, RDW Std Deviation 39.2, RDW Coeff of Arturo 13.2, Plt Count 122 L, MPV 10.3, Immature Gran % (Auto) 0.600, Neut % (Auto) 93.3 H, Lymph % (Auto) 2.1 L, [place] % (Auto) 3.8, Eos % (Auto) 0.0, Baso % (Auto) 0.2, Absolute Neuts (auto) 9.7 H, Absolute Lymphs (auto) 0.22 L, Nucleated RBC % 0, Differential Comment SCANNED 10/31/21 05:55: Sodium 125 L, Potassium 4.1, Chloride 92 L, Carbon Dioxide 21.0, Anion Gap 12, BUN 48 H, Creatinine 1.28, Estim Creat Clear Calc 39.77, Est GFR (MDRD) Af Amer 69, Est GFR (MDRD) Non-Af 57 L, BUN/Creatinine Ratio 37.5 H, Glucose 220 H, Calcium 8.0 L, Total Bilirubin 0.80, AST 38 H, ALT 40, Alkaline Phosphatase 81, Total Protein 5.7 L, Albumin 2.1 L, Globulin 3.6, Albumin/Globulin Ratio 0.6 L 10/31/21 06:46: POC Glucose 211 H Micro: Microbiology 10/31/21 01:32 Urine, Clean Catch Streptococcus pneumoniae Antigen (M - Final 10/31/21 01:32 Urine, Clean Catch Legionella Antigen - Final 10/29/21 13:35 Nasal Secretion SARS-CoV-2 Antigen (Rapid) - Final SARS-CoV-2 (COVID 19) Physical Exam Const no apparent distress Orientation / Consciousness: confused HEENT normocephalic and head/scalp atraumatic HEENT Narrative: Appears to be hard of hearing Eyes Eyes Narrative: Periorbital ecchymosis and subconjunctival hemorrhage of right eye. Visual acuity intact. Neck no lymphadenopathy and supple Chest inspection of chest normal Chest: symmetrical chest wall rise; Negative for crepitus Resp Auscultation: rales and diminished lung sounds; Negative for rhonchi or wheezes Cardio no murmurs and no JVD Rate: tachycardic Rhythm: regular rhythm GI normal to inspection, nondistended, normoactive bowel sounds, soft to palpation and non-tender Extremity normal to inspection, full ROM and no clubbing, cyanosis or edema Skin no wounds and no jaundice Neuro Neuro Narrative: Unable to assess due to patient confusion. Appears to be nonfocal Psych Psych Narrative: Unable to assess due to patient confusion. Charges/Coding Visit Charges Inpatient E&M: 32777 Subs Hosp L2
[2021-10-31] MEDS: Erythromycin Base 1 OPTH.TUBE 1 APPLIC RIGHT EYE ×4 (08:37→21:22)
[2021-10-31] MEDS: Memantine Hydrochloride 10 MG Tablet PO ×2 (08:37→21:20)
[2021-10-31] MEDS: dexAMETHasone 10 MG/ML Vial 6 MG IV (08:38)
[2021-10-31] MEDS: Calcium Carb/Vitamin D 1 TABLET Tablet PO (08:38)
[2021-10-31] MEDS: Galantamine Hydrobromide 4 MG Tablet 8 MG PO ×2 (08:38→21:20)
[2021-10-31] MEDS: Menthol/Lanolin/Calamine/Znox 113 GM Tube 1 APPLIC TOPICAL ×4 (08:39→21:20)
[2021-10-31] MEDS: 0.9% Saline Lock 10 ML Syringe IV (08:44)
[2021-10-31 11:21] LABS: Bedside Glucose 400 mg/dL (70-110)
--- NOTE | 2021-10-31 11:33 | PN.HOSP_ITS ---
Documented by User: Jesús MENG 10/31/21 11:52 Subjective Subjective Patient is an 81-year-old male comfortably resting in bed, alert and orient x3. Patient confusion and overall distress significantly improved from admission. Patient is pleasant enough although family member present in room does not seem to accept that patient has COVID-19, despite this providers attempts at educating him. Denies development of any new symptoms overnight. Does not appear in acute distress. Objective Data Objective Data Vital Signs: Vital Signs Temp Pulse Resp BP Pulse Ox 97.2 F L 61 18 134/69 H 95 10/31/21 10:30 10/31/21 10:30 10/31/21 10:30 10/31/21 10:30 10/31/21 10:30 Oxygen Flow Rate (L/min) 3 Oxygen Delivery Method Nasal Cannula Weight: 141 lb 12.116 oz Body Mass Index (BMI) 19.5 Intake & Output: Intake and Output for Last 24 Hours 10/29/21 10/30/21 10/31/21 23:59 23:59 23:59 Intake Total 0 / 0 1345.00 / 1345.00 120 / 120 Balance 0 / 0 1345.00 / 1345.00 120 / 120 Lab / Micro Data Result Diagrams: 10/31/21 05:55 10/31/21 05:55 Labs: Laboratory Results - last 24 hr 10/30/21 12:17: POC Glucose 249 H 10/30/21 16:45: POC Glucose 241 H 10/31/21 05:55: WBC 10.4, RBC 4.20 L, Hgb 12.7 L, Hct 34.0 L, MCV 81.0 D, MCH 30.2, MCHC 37.4 H D, RDW Std Deviation 39.2, RDW Coeff of Arturo 13.2, Plt Count 122 L, MPV 10.3, Immature Gran % (Auto) 0.600, Neut % (Auto) 93.3 H, Lymph % (Auto) 2.1 L, [place] % (Auto) 3.8, Eos % (Auto) 0.0, Baso % (Auto) 0.2, Absolute Neuts (auto) 9.7 H, Absolute Lymphs (auto) 0.22 L, Nucleated RBC % 0, Differential Comment SCANNED 10/31/21 05:55: Sodium 125 L, Potassium 4.1, Chloride 92 L, Carbon Dioxide 21.0, Anion Gap 12, BUN 48 H, Creatinine 1.28, Estim Creat Clear Calc 39.77, Est GFR (MDRD) Af Amer 69, Est GFR (MDRD) Non-Af 57 L, BUN/Creatinine Ratio 37.5 H, Glucose 220 H, Calcium 8.0 L, Total Bilirubin 0.80, AST 38 H, ALT 40, Alkaline Phosphatase 81, Total Protein 5.7 L, Albumin 2.1 L, Globulin 3.6, Albumin/Globulin Ratio 0.6 L 10/31/21 06:46: POC Glucose 211 H 10/31/21 11:06: POC Glucose 400 H Micro: Microbiology 10/29/21 14:05 Blood Culture (Wb) - Anticubital Left Blood Culture - Preliminary No growth in 48 hours. 10/29/21 15:40 Blood Culture (Wb) #2 - Anticubital Right Blood Culture - Preliminary No growth in 48 hours. 10/31/21 01:32 Urine, Clean Catch Streptococcus pneumoniae Antigen (M - Final 10/31/21 01:32 Urine, Clean Catch Legionella Antigen - Final 10/29/21 13:35 Nasal Secretion SARS-CoV-2 Antigen (Rapid) - Final SARS-CoV-2 (COVID 19) Physical Exam Const alert and no apparent distress HEENT head/scalp atraumatic and moist oral mucous membranes Head and Scalp: normocephalic Eyes Eyes Narrative: Right eye has significant bruising and subconjunctival hemorrhage. Neck no lymphadenopathy, supple and no JVD Resp normal respiratory effort, no retractions, no use of accessory muscles and clear to auscultation bilaterally Cardio regular rate, regular rhythm, no murmurs and no JVD GI normal to inspection, nondistended, normoactive bowel sounds, soft to palpation and non-tender Extremity normal to inspection, full ROM and no clubbing, cyanosis or edema Skin no rashes or lesions noted, no wounds, skin turgor normal and no jaundice Neuro CN's II-XII intact bilaterally Psych affect normal Assessment & Plan Assessment/Plan (1) Acute encephalopathy: (2) Pneumonia due to 2019 novel coronavirus: (3) Respiratory failure with hypoxia: QUALIFIERS: Chronicity: acute on chronic Qualified Code(s): J96.21 - Acute and chronic respiratory failure with hypoxia PLAN: Day 2 Discharge planning: To be determined, patient and family would like patient to return home, although it is unclear that patient and/or family can care for them. 1) Acute hypoxic respiratory failure secondary to Acute COVID-19 pneumonia Improved, currently satting 95% on 3 L via nasal cannula. CBC does not demonstrate a leukocytosis. Nephew that was present on admission was present in room today and expressed doubts over patient having COVID-19 pneumonia. CTA of the chest did not demonstrate PE arterial dissection but showed bilateral patchy infiltrates that are consistent with COVID-19 pneumonia. This provider took time to educate family member about why we believe he has COVID-19, unclear whether nephew understands what was being explained. Plan is for patient to continue remdesivir and Decadron and to encourage use of incentive spirometry to wean off O2. 2) Acute metabolic encephalopathy Resolved, currently mentating at baseline. 3) Acute severe right conjunctival hemorrhage/chemosis, unclear etiology, Discussed with ophthalmology; continue on erythromycin ointment 4) DM2 Continue Accu-Cheks with sliding scale insulin. Chronic medical conditions - CAD status post CABG/Hypertension/Hyperlipidemia/SHERMAN, noncompliant/Dementia Continue on Atorvastatin and Namenda. DVT prophylaxis - SCD's Patient seen by Jesús Downing PA-C, under the supervision of Dr. Dawson. Documented by User: Dr. Yissel Dawson MD 10/31/21 13:26 Objective Data Lab / Micro Data Result Diagrams: 10/31/21 05:55 10/31/21 05:55 Charges/Coding Addendum Addendum: This patient was seen in conjunction with YUSRA Johnson. I have independently interviewed and examined the patient and reviewed pertinent historical, laboratory, and other data. Please refer to YUSRA Johnson's note for his patient's presentation, findings, and recommendations. I have reviewed and his note and concur with his documentation Patient was seen and examined. His nephew was in the room. He is currently on 3 L of oxygen. No acute events overnight. Physical exam: General: Alert, Oriented x3, Cooperative, No apparent distress, Well developed HEENT: Right eye hemorrhagic chemosis, subconjunctival hemorrhage, improved Oral: Moist Mucosa Neck: Supple Lungs: Diminished to auscultation Cardiovascular: HS I+II, regular, no murmurs Abdomen: Bowel Sounds Present, Soft, Non Tender Extremities: No edema ASSESSMENT: 1. Acute hypoxic respiratory failure secondary to acute COVID-19 pneumonia 2. Acute metabolic encephalopathy, resolved 3. Acute severe right conjunctival hemorrhage/chemosis, resolving 4. Hypertensive urgency, resolved 5. Type II DM 6. CAD status post CABG/hypertension/hyperlipidemia/SHERMAN/dementia Plan: Continue on Decadron and remdesivir Continue to wean off oxygen Continue azithromycin eye ointment Resume insulin regimen Increase insulin sliding scale to medium to high dose insulin sliding scale Repeat blood work in a.m. Visit Charges Inpatient E&M: 50940 Subs Hosp L2
[2021-10-31 16:45] LABS: Bedside Glucose 397 mg/dL (70-110)
[2021-10-31] MEDS: Pramipexole Di-HCl 1 MG Tablet 1.5 MG PO (21:20)
[2021-10-31] MEDS: Atorvastatin Calcium 20 MG Tablet PO (21:20)
[2021-10-31 23:50] LABS: Bedside Glucose 366 mg/dL (70-110)
[2021-10-31] MEDS: MELATONIN 3 MG TABLET PO (23:51)
[2021-11-01] VITALS (12 sets, daily range): BP systolic 133–169; BP diastolic 69–95; PULSE 61–83; RESP 15–18; TEMP 36.5–36.7; O2SAT 88–94
[2021-11-01] MEDS: Insulin Lispro 100 UNIT/ML INSULN.PEN SC ×4 (06:35→23:23)
[2021-11-01 06:45] LABS: Bedside Glucose 272 mg/dL (70-110)
[2021-11-01 07:20] LABS: Bedside Glucose 269 mg/dL (70-110)
[2021-11-01 07:20] LABS: Bedside Glucose 241 mg/dL (70-110)
[2021-11-01 07:31] LABS: Absolute Lymphocyte Count 0.23 X10^3/uL (0.83-4.51); Absolute Neutrophil Count 9.9 X10^3/uL (2.0-7.7); Hematocrit 34.9 % (40-54); Hemoglobin 12.4 g/dL (13.0-16.5); Lymphocyte # 0.23 X10^3/ul (0.83-4.51); Lymphocyte % 2.2 % (19-41); Mean Corp Hgb Conc 35.5 g/dL (32-36); Mean Corpuscular Volume 84.5 fL (80-94); Monocyte# 0.31 X10^3/uL; Monocyte% 2.9 % (0-10); NRBC Flagged by Analyzer 0 % (0-5); Neutrophil # 9.94 X10^3/uL (2.7-7.7); Neutrophil % 94.4 % (47-70); POSITIVE DIFFERENTIAL YES; Platelet Count 159 K/mm3 (150-450); RBC Distribution Width CV 13.4 % (11.6-14.6); RBC Distribution Width SD 41.8 fl (35.1-43.9); Red Blood Count 4.13 M/mm3 (4.6-6.2); White Blood Count 10.5 K/mm3 (4.4-11.0)
[2021-11-01 07:42] LABS: Differential Indicated SCAN CRITERIA MET
[2021-11-01 07:57] LABS: ALB/GLOB Ratio 0.7 RATIO (0.9-2.4); AST(SGOT) 35 U/L (15-37); Alanine Aminotransfer ALT/SGPT 43 U/L (16-61); Albumin, Serum 2.4 g/dL (3.2-5.0); Alkaline Phosphatase 81 U/L (45-117); Anion Gap 10 (5-15); BUN 55 mg/dL (7-18); BUN/Creat Ratio 35.7 RATIO (10-20); Calcium,Total 8.1 mg/dL (8.5-10.1); Chloride 96 mmol/L (98-107); Creatinine, Serum 1.54 mg/dL (0.70-1.30); EST Glomerular Filtration Rate 46 mL/min (>60); Est Glom Filt Rate - Afr Amer 56 mL/min (>60); Estimated Creatinine Clearance 33.52 ml/min; Globulin 3.4 g/dL (2.2-4.2); Glucose 283 mg/dL (74-106); Potassium 3.9 mmol/L (3.5-5.1); Protein, Total 5.8 g/dL (6.4-8.2); Sodium Level 131 mmol/L (136-145)
[2021-11-01 08:27] LABS: Platelet Estimate ADEQUATE (ADEQ); Red Cell Morphology NORM C+C NORMAL (NORM C&C)
[2021-11-01] MEDS: dexAMETHasone 10 MG/ML Vial 6 MG IV (09:25)
[2021-11-01] MEDS: Galantamine Hydrobromide 4 MG Tablet 8 MG PO ×2 (09:26→23:19)
[2021-11-01] MEDS: Memantine Hydrochloride 10 MG Tablet PO ×2 (09:26→23:19)
[2021-11-01] MEDS: 0.9% Saline Lock 10 ML Syringe IV (09:26)
[2021-11-01] MEDS: Calcium Carb/Vitamin D 1 TABLET Tablet PO (09:26)
[2021-11-01] MEDS: Erythromycin Base 1 OPTH.TUBE 1 APPLIC RIGHT EYE ×4 (09:27→23:25)
[2021-11-01] MEDS: Menthol/Lanolin/Calamine/Znox 113 GM Tube 1 APPLIC TOPICAL ×4 (09:28→23:26)
--- NOTE | 2021-11-01 12:22 | PN.HOSP_ITS ---
Documented by User: Jesús MENG 11/01/21 12:32 Subjective Subjective Patient is an 81-year-old male comfortably resting in bed, alert and orient x3. Patient confusion and shortness of breath appears stable from yesterday, much improved from admission. Denies development of any new symptoms overnight. Does not appear in acute distress. Objective Data Objective Data Vital Signs: Vital Signs Temp Pulse Resp BP Pulse Ox 97.8 F 77 15 133/69 H 91 11/01/21 09:21 11/01/21 11:38 11/01/21 09:21 11/01/21 09:21 11/01/21 09:21 Oxygen Flow Rate (L/min) 2 Oxygen Delivery Method Nasal Cannula Weight: 143 lb 11.862 oz Body Mass Index (BMI) 19.5 Intake & Output: Intake and Output for Last 24 Hours 10/30/21 10/31/21 11/01/21 23:59 23:59 23:59 Intake Total 1345.00 / 1345.00 1846.25 / 1846.25 Output Total 300 / 300 250 / 250 Balance 1345.00 / 1345.00 1546.25 / 1546.25 -250 / -250 Lab / Micro Data Result Diagrams: 11/01/21 07:11 11/01/21 07:11 Labs: Laboratory Results - last 24 hr 10/30/21 23:37: POC Glucose 241 H 10/30/21 23:39: POC Glucose 269 H 10/31/21 16:28: POC Glucose 397 H 10/31/21 21:16: POC Glucose 366 H 11/01/21 06:33: POC Glucose 272 H 11/01/21 07:11: WBC 10.5, RBC 4.13 L, Hgb 12.4 L, Hct 34.9 L, MCV 84.5, MCH 30.0, MCHC 35.5 D, RDW Std Deviation 41.8, RDW Coeff of Arturo 13.4, Plt Count 159, MPV 10.0, Immature Gran % (Auto) 0.500, Neut % (Auto) 94.4 H, Lymph % (Auto) 2.2 L, [place] % (Auto) 2.9, Eos % (Auto) 0.0, Baso % (Auto) 0.0, Absolute Neuts (auto) 9.9 H, Absolute Lymphs (auto) 0.23 L, Nucleated RBC % 0, Differential Comment , Platelet Estimate ADEQUATE, RBC Morphology NORM C+C 11/01/21 07:11: Sodium 131 L, Potassium 3.9, Chloride 96 L, Carbon Dioxide 25.0, Anion Gap 10, BUN 55 H, Creatinine 1.54 H, Estim Creat Clear Calc 33.52, Est GFR (MDRD) Af Amer 56 L, Est GFR (MDRD) Non-Af 46 L, BUN/Creatinine Ratio 35.7 H, Glucose 283 H, Calcium 8.1 L, Total Bilirubin 0.60, AST 35, ALT 43, Alkaline Phosphatase 81, Total Protein 5.8 L, Albumin 2.4 L, Globulin 3.4, Al bumin/Globulin Ratio 0.7 L Micro: Microbiology 10/29/21 14:05 Blood Culture (Wb) - Anticubital Left Blood Culture - Prel iminary No growth in 48 hours. 10/29/21 15:40 Blood Culture (Wb) #2 - Anticubital Right Blood Culture - Preliminary No growth in 48 hours. 10/31/21 01:32 Urine, Clean Catch Streptococcus pneumoniae Antigen (M - Final 10/31/21 01:32 Urine, Clean Catch Legionella Antigen - Final 10/29/21 13:35 Nasal Secretion SARS-CoV-2 Antigen (Rapid) - Final SARS-CoV-2 (COVID 19) Physical Exam Const alert, oriented x3 and no apparent distress HEENT head/scalp atraumatic, moist oral mucous membranes and oropharynx normal Head and Scalp: normocephalic Eyes PERRL, EOMs intact bilaterally and conjunctivae normal Neck no lymphadenopathy, supple and no JVD Resp normal respiratory effort, no retractions, no use of accessory muscles and clear to auscultation bilaterally Cardio regular rate, regular rhythm, no murmurs and no JVD GI normal to inspection, nondistended, normoactive bowel sounds, soft to palpation and non-tender Extremity normal to inspection, full ROM and no clubbing, cyanosis or edema Skin no rashes or lesions noted, no wounds and skin turgor normal Neuro CN's II-XII intact bilaterally Psych affect normal Assessment & Plan Assessment/Plan (1) Acute encephalopathy: (2) Pneumonia due to 2019 novel coronavirus: (3) Respiratory failure with hypoxia: QUALIFIERS: Chronicity: acute on chronic Qualified Code(s): J96 .21 - Acute and chronic respiratory failure with hypoxia PLAN: Day 3 Discharge planning: To be determined, patient and family would like patient to return home, although it is unclear that patient and/or family can care for them. 1) Acute hypoxic respiratory failure secondary to acute COVID-19 pneumonia Currently satting 94% on 2 L via nasal cannula. CBC does not demonstrate a leukocytosis. CTA of the chest did not demonstrate PE arterial dissection but showed bilateral patchy infiltrates that are consistent with COVID-19 pneumonia. This provider took time to educate family member about why we believe he has COVID-19, unclear whether nephew understands what was being explained. Plan is for patient to continue remdesivir through 10/29 and Decadron and to encourage use of incentive spirometry to wean off O2. 2) Acute metabolic encephalopathy Resolved, currently mentating at baseline. 3) Acute severe right conjunctival hemorrhage/chemosis, unclear etiology, Discussed with ophthalmology; continue on erythromycin ointment 4) DM2 Continue Accu-Cheks with sliding scale insulin. 5) debility Unclear if patient has the ability to take care of himself at home or whether can help patient. We will continue to assess for possible SNF placement. Chronic medical conditions - CAD status post CABG/Hypertension/Hyperlipidemia/SHERMAN, noncompliant/Dementia Continue on Atorvastatin and Namenda. DVT prophylaxis - SCD's Patient seen by Jesús Downing PA-C, under the supervision of Dr. Vaughan. Documented by User: Dr. Enzo Vaughan, DO 11/01/21 20:16 Objective Data Lab / Micro Data Result Diagrams: 11/01/21 07:11 11/01/21 07:11 Charges/Coding Addendum Addendum: Patient was seen and examined today independently of Jesús Downing, I talked with his son who was in the room at the time of my examination, patient is very weak and I recommended that he consider going to an extended care facility for short-term rehab. Patient states he would consider going to TCU, I will check with case management tomorrow regarding bed availability and his insurance coverage. I explained to the son that he would have to be in quarant ine for a total of 20 days at home due to his Covid. On examination he appeared weak and frail. Vital signs as documented. Skin warm and dry and without overt rashes. Neck without JVD, neck was supple, trachea midline, thyroid was normal. Lungs clear bilaterally, normal air movement was noted. Heart exam notable for regular rhythm, normal sounds and absence of murmurs, rubs or gallops. Abdomen unremarkable and without evidence of organomegaly, masses, or abdominal aortic enlargement. Bowel sounds are present, abdomen is not distended. Extremities nonedematous, no cyanosis was noted, no clubbing was noted. Neuro: Cranial nerves II through XII are grossly intact, no focal motor deficits were noted, sensation to light touch and pinprick intact, motor exam 5/5 throughout. Psych: Patient is alert and oriented x3, he does not appear anxious or depressed, he does not appear agitated. I have reviewed Jesús Zendejas's progress note including his medical assessment and plan of care and endorse it. Visit Charges Inpatient E&M: 56815 Subs Hosp L2
[2021-11-01 12:50] LABS: Bedside Glucose 424 mg/dL (70-110)
--- NOTE | 2021-11-01 14:55 | CASEMGMT ---
Social Work SW did attempt to speak w/pt, however therapy is in the room. NELLI called daughter Bee([phone]) who is POA, to inquire how pt was doing prior to this hospital stay and review anticipated discharge plan. PCP: Dr. Gupta Specialists: daughter unsure of specialists. Pharmacy: [facility] in [place] Insurance: Medicare/[employer] LNOK: Erin, son Godwin, daughter Bee nephew Enzo Living arrangements/Prior level of function: Pt lives home w/ on a farm. As per daughter, both have been independent at home. Pt uses a cane occasionally. 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 Daughter stands behind him when he goes up the steps. Pt still drives. LW/POA: Daughter states she is medical POA, the family just made her POA. She states son José Luis has not been very involved. DME/SNF/HHC: As per daughter, pt uses cane, pt has been here for rehab. Plan: Daughter states plan is to move both pt and his to [place]'s house. She has a mother in law suite here in [place], and has family there who can care for the pt and . NELLI inquired if [place] Marlow is okay w/caring for pt knowing pt has COVID. She states that this is fine. She may want home health for pt as well. SW asked daughter to let SW know tomorrow if this is the definite plan, and if so, then we can ask CM to follow up w/her to set up home health. NELLI inquired if there will be enough help to care for pt as he is an assist of two, she states that there is. Address for Homa Marlow: [address] [place], [address] SW to follow up tomorrow, CM aware that home health referral may be needed. TUSHAR Jacobs
--- NOTE | 2021-11-01 15:31 | CASEMGMT ---
Addendum entered by Josefina Stein 11/01/21 16:29: Social Work Nephew did ask about hospice. SW educated pt about hospice, pt is not in agreement with a hospice referral. RN then got a call from hospice stating Cassandra Otto(unclear who this is) called her on request of daughter to make a hospice referral. RN tried to call daughter, could not reach her. SW to follow up w/daughter tomorrow in regard to this. TUSHAR Jacobs Original Note: Social Work SW did go in to see pt, his nephew Enzo is in the room. Pt is in agreement going to [facility] home at discharge. Enzo and pt both spoke about whether or not they can assist pt with medications at the [place] home. SW will ask the daughter to check on this. SW called daughter, call went to voicemail and voicemail is full. SW will continue to follow. TUSHAR Jacobs
[2021-11-01 16:01] LABS: Bedside Glucose 411 mg/dL (70-110)
--- NOTE | 2021-11-01 16:30 | NURSING ---
this nurse recieved phone call from hospice requesting orders for them to see patient here. Asked hospice which family member called she states karie Otto was asked by daughter Bee to call. This nurse called Daughter Bee and phone and voice mailbox is full
[2021-11-01] MEDS: Pramipexole Di-HCl 1 MG Tablet 1.5 MG PO (23:19)
[2021-11-01] MEDS: Senna/Docusate Sodium 1 Tablet PO (23:19)
[2021-11-01] MEDS: Atorvastatin Calcium 20 MG Tablet PO (23:19)
[2021-11-02] VITALS (8 sets, daily range): BP systolic 134–168; BP diastolic 75–85; PULSE 57–69; RESP 16–18; TEMP 36.4–36.8; O2SAT 86–96
[2021-11-02 00:20] LABS: Bedside Glucose 269 mg/dL (70-110)
[2021-11-02] MEDS: Insulin Lispro 100 UNIT/ML INSULN.PEN SC ×2 (06:43→12:10)
[2021-11-02 06:50] LABS: Bedside Glucose 189 mg/dL (70-110)
[2021-11-02 07:26] LABS: Anion Gap 5 (5-15); BUN 45 mg/dL (7-18); BUN/Creat Ratio 45.3 RATIO (10-20); Calcium,Total 8.6 mg/dL (8.5-10.1); Chloride 100 mmol/L (98-107); Creatinine, Serum 0.99 mg/dL (0.70-1.30); EST Glomerular Filtration Rate 76 mL/min (>60); Est Glom Filt Rate - Afr Amer 92 mL/min (>60); Estimated Creatinine Clearance 51.34 ml/min; Glucose 180 mg/dL (74-106); Potassium 4.6 mmol/L (3.5-5.1); Sodium Level 132 mmol/L (136-145)
--- NOTE | 2021-11-02 09:43 | CASEMGMT ---
Addendum entered by Aye Verdin 11/02/21 11:48: Return call from [facility] home health services and they are able to accept and start services on . CHANO Hodgson Original Note: Social Work SW spoke with pt daughter Bee Steiner regarding discharge plan. SW explained that [facility] hospice has called requesting a referral as Cassandra Otto had notified hospice of family wishes for hospice care. SW explained hospice services vs home health services to Bee. At this time Bee is not interested in hospice and would like home health. NELLI spoke with Bee regarding home vs SNF placement. Bee is adamant that pt will be returning home and that SNF is not the plan at this time. NELLI reviewed list of [facility] companies including quality and resource use data. Bee's first choice is [facility] and second choice is [facility]. Pt will discharge to the home of Homa Marlow where pt will be in the in law suite but have several caregivers living on sight to provide needed care. Pt dgt notified of pt level of care and she confirms he can be cared for appropriately and she will set up medications and assist as needed as well. Per dgts wishes, phone call to [facility] and spoke with Anjali and cancelled referral. Anjali to call Bee to confirm. Referral made to [facility] for PT/OT/RN. Will await determination of acceptance. NELLI met with pt and nephew in room and discussed discharge plan. Pt and nephew are agreeable with plan that dgt has set. RNCM updated. Plan: home wit home health PT/OT/SN CHANO Hodgson
[2021-11-02] MEDS: Calcium Carb/Vitamin D 1 TABLET Tablet PO (09:49)
[2021-11-02] MEDS: Memantine Hydrochloride 10 MG Tablet PO (09:49)
[2021-11-02] MEDS: 0.9% Saline Lock 10 ML Syringe IV (09:49)
[2021-11-02] MEDS: dexAMETHasone 10 MG/ML Vial 6 MG IV (09:49)
[2021-11-02] MEDS: Senna/Docusate Sodium 1 Tablet PO (09:49)
[2021-11-02] MEDS: Menthol/Lanolin/Calamine/Znox 113 GM Tube 1 APPLIC TOPICAL ×2 (09:49→15:13)
[2021-11-02] MEDS: Galantamine Hydrobromide 4 MG Tablet 8 MG PO (09:49)
[2021-11-02] MEDS: Erythromycin Base 1 OPTH.TUBE 1 APPLIC RIGHT EYE ×2 (09:52→15:13)
[2021-11-02 12:30] LABS: Bedside Glucose 310 mg/dL (70-110)
--- NOTE | 2021-11-02 13:12 | NURSING ---
discussed [place] don and doffing of ppe with visitor and expectations of covid visitor. Visitor states he really doesnt remember if someone reviewed with him or not on admit. admitted he didnt wash his hands when he left covid room but will now
--- NOTE | 2021-11-02 13:25 | PCM.DC ---
Discharge Instructions Diet Discharge Diet: No restrictions Activity Discharge Activity: Return to Normal Activity Weight Bearing Status: Weight bearing as tolerated Dressing / Incision Call your doctor if you observe: Fever of 101 or Higher, Numbness or Tingling, Shortness of breath, Dizziness, Chest pain, Increased palpitations (irregular heartbeat) and Calf discomfort Follow Up Care Please Follow Up With: Primary care provider When: Within the next two weeks. Test Results: Test results from this visit will be discussed in further detail at your follow-up appointment, if applicable. Discharge Plan Admission Admit Date/Time: 10/29/21 15:40 Primary Reason for Your Visit: Shortness of breath Attending Provider: Enzo Vaughan Primary Care Provider: London Gupta Consulting Providers: Husam Daniels ; Juno Escalante ; Cammie Otto ETCH OPERATOR [employer] Instructions Additional Instructions / Restrictions: [facility] Home Health Services with start of care on . Discharge Orders/Prescriptions Prescriptions: New dexamethasone 2 mg tablet 6 mg PO DAILY Qty: 18 RF: 0 Continued (DME) comp.stocking,knee,long,medium Misc See Rx Instructions .ROUTE .MEDSUPPLY Qty: 2 RF: 0 (DME) Disability placard See Rx Instructions .Route .MEDSUPPLY Qty: 1 RF: 0 insulin glargine 100 UNITS/ML insulin pen 18 units SC DAILY RF: 0 pramipexole 1 MG tablet 1.5 mg PO QHS RF: 0 calcium carbonate-vitamin D3 1 EACH tablet 1 tab PO DAILY MDD bones RF: 0 atorvastatin 40 mg tablet 20 mg PO QHS RF: 0 carvedilol [Coreg] 6.25 mg tablet 6.25 mg PO BID RF: 0 clopidogrel 75 mg tablet 75 mg PO DAILY RF: 0 memantine 10 mg tablet 10 mg PO BID RF: 0 galantamine 16 mg capsule,ext rel. pellets 24 hr 16 mg PO QAM RF: 0 Discontinued prednisone 10 mg tablet 7.5 mg PO DAILY RF: 0 Referrals / Follow Up: London Gupta MD [Primary Care Provider] - Within 2 Weeks Disposition Disposition (needs filled in before D/C Order can be placed): Home Health Service
--- NOTE | 2021-11-02 14:07 | CASEMGMT ---
Addendum entered by Ginny Eason 11/02/21 14:55: [facility] also aware that pt to discharge to different address than home and aware that address provided on script and facesheet. Hilary CINTRON CM Original Note: Per Melissa CINTRON, pt qualifies for 2L at rest and 3L w/ exertion home oxygen and pt states would like [facility] for home oxygen. Script faxed to [facility] at this time and call to [facility] to notify of referral. Hilary CINTRON CM
--- NOTE | 2021-11-02 15:11 | DS.PCM_ITS ---
Documented by User: Jesús MENG 11/02/21 15:22 Providers Date of Admission: 10/29/21 Date of Discharge: 11/02/21 Primary Care Physician: Dr. London Gupta MD Consultations 10/29/21 17:24 Consult: Director Of Global Marketing / Pulmonary Medicine Routine Consulting Provider: Pulmonary Medicine rei Ruano Reason for Consult: Covid-19 EMERGENT Consult: No MD Notified: Yes Date Notified: 10/29/21 Time Notified: 15:46 Method of Notification: Text Reason For Visit: RESP FAILURE/COVID Diagnosis Discharge Diagnosis (1) Acute encephalopathy: Status: Acute Code(s): G93.40 - Encephalopathy, unspecified (2) Pneumonia due to 2019 novel coronavirus: Status: Acute Code(s): U07.1 - COVID-19; J12.82 - Pneumonia due to coronavirus disease 2019 (3) Respiratory failure with hypoxia: Status: Acute Code(s): J96.91 - Respiratory failure, unspecified with hypoxia Qualifiers: Chronicity: acute on chronic Qualified Code(s): J96.21 - Acute and chronic respiratory failure with hypoxia Medications at Discharge Home Medications insulin glargine 18 units SC DAILY 09/28/16 calcium carbonate-vitamin D3 1 tab PO DAILY MDD bones 03/18/19 pramipexole 1.5 mg PO QHS 03/18/19 comp.stocking,knee,long,medium #2 each 02/08/21 Disability placard #1 ea NS 07/26/21 atorvastatin 20 mg PO QHS 10/29/21 carvedilol [Coreg] 6.25 mg PO BID 10/29/21 clopidogrel 75 mg PO DAILY 10/29/21 galantamine 16 mg PO QAM 10/29/21 memantine 10 mg PO BID 10/29/21 dexamethasone 6 mg PO DAILY #18 tab 11/02/21 Hospital Course Summary of Care Provided Minutes Spent on Discharge: 35 Hospital Course: Disposition: Patient to discharge in care of family friends. Family was advised that this would be increasingly difficult due to patient's quarantine status. Family advised providers that this is in their wishes and they will do their best to maintain quarantine standards. 1) Acute hypoxic respiratory failure secondary to acute COVID-19 pneumonia Patient currently satting 93% on 2 L via nasal cannula. With ambulation patient required 3 L of oxygen to maintain saturations. Will be provided oxygen prescription on discharge. Patient given 4 days of Decadron while admitted, will continue for 6 more days to complete 10-day course. Remdesivir given thro ughout admissiion. Patient to remain quarantined through November 16, 2021 to complete 20-day course. High concern for readmission given disposition planning, concerns voiced to family. Unclear if family members understand the severity of COVID-19 or the importance of maintaining quarantine for public health. 2) Acute metabolic encephalopathy Resolved, secondary to above. 3) Acute severe right conjunctival hemorrhage/chemosis, unclear etiology, Treated with erythromycin ointment while admitted. 4) DM2 Continue home insulin regimen. 5) debility Discharge plan as above. Patient seen by Jesús Downing PA-C, under the supervision of Dr. Vaughan. Physical Exam Narrative Patient is an 81-year-old male comfortably resting in bed, alert x3. Patient reports significant improvement in shortness of breath from admission. Denies development of any new symptoms overnight. Does not appear in acute distress. Const alert, oriented x3 and no apparent distress HEENT normocephalic, head/scalp atraumatic and hearing grossly normal bilaterally Eyes PERRL, EOMs intact bilaterally and conjunctivae normal Neck no lymphadenopathy, supple and no JVD Resp normal respiratory effort, no retractions and no use of accessory muscles Resp Narrative: Currently satting 93% on 2 L via nasal cannula. Auscultation: diminished lung sounds Cardio regular rate, regular rhythm, no murmurs and no JVD GI normal to inspection, nondistended, normoactive bowel sounds, soft to palpation and non-tender Extremity normal to inspection, full ROM and no clubbing, cyanosis or edema Skin no rashes or lesions noted, no wounds and skin turgor normal Neuro CN's II-XII intact bilaterally Psych affect normal Weight / BMI Weight Weight: 141 lb 8.588 oz Body Mass Index (BMI) 19.5 ABG / Lab / Microbiology Data Result Diagrams: 11/01/21 07:11 11/02/21 06:43 Laboratory: Laboratory Results - last 24 hr 11/01/21 15:39: POC Glucose 411 H 11/01/21 23:23: POC Glucose 269 H 11/02/21 06:41: POC Glucose 189 H 11/02/21 06:43: Sodium 132 L, Potassium 4.6, Chloride 100, Carbon Dioxide 27.0, Anion Gap 5, BUN 45 H, Creatinine 0.99, Estim Creat Clear Calc 51.34, Est GFR (MDRD) Af Amer 92, Est GFR (MDRD) Non-Af 76, BUN/Creatinine Ratio 45.3 H, Glucose 180 H, Calcium 8.6 11/02/21 12:08: POC Glucose 310 H Microbiology: Microbiology 11/02/21 03:50 Sputum, Expectorated/Coughed Gram Stain - Final 10/29/21 14:05 Blood Culture (Wb) - Anticubital Left Blood Culture - Pr eliminary No growth in 48 hours. 10/29/21 15:40 Blood Culture (Wb) #2 - Anticubital Right Blood Culture - Preliminary No growth in 48 hours. 10/31/21 01:32 Urine, Clean Catch Streptococcus pneumoniae Antigen (M - Final 10/31/21 01:32 Urine, Clean Catch Legionella Antigen - Final 10/29/21 13:35 Nasal Secretion SARS-CoV-2 Antigen (Rapid) - Final SARS-CoV-2 (COVID 19) D/C Instructions Discharge Diet: No restrictions Weight Bearing Status: Weight bearing as tolerated Call your doctor if you observe: Fever of 101 or Higher, Numbness or Tingling, Shortness of breath, Dizziness, Chest pain, Increased palpitations (irregular heartbeat) and Calf discomfort Please Follow Up With: Primary care provider When: Within the next two weeks. Meaningful Use Info Meaningful Use Diagnoses (Choose all that apply): None applicable Discharge Plan Admission Admit Date/Time: 10/29/21 15:40 Primary Reason for Your Visit: Shortness of breath Attending Provider: Enzo Vaughan Primary Care Provider: London Gupta Consulting Providers: Husam Daniels ; Juno Escalante ; Cammie Otto [employer] Instructions Additional Instructions / Restrictions: * [facility] Home Health Services with start of care on . *Patient is to maintain quarantined through November 16, 2021 to complete 20-day quarantine course. Discharge Orders/Prescriptions Prescriptions: New dexamethasone 2 mg tablet 6 mg PO DAILY Qty: 18 RF: 0 Continued (DME) comp.stocking,knee,long,medium Misc See Rx Instructions .ROUTE .MEDSUPPLY Qty: 2 RF: 0 (DME) Disability placard See Rx Instructions .Route .MEDSUPPLY Qty: 1 RF: 0 insulin glargine 100 UNITS/ML insulin pen 18 units SC DAILY RF: 0 pramipexole 1 MG tablet 1.5 mg PO QHS RF: 0 calcium carbonate-vitamin D3 1 EACH tablet 1 tab PO DAILY MDD bones RF: 0 atorvastatin 40 mg tablet 20 mg PO QHS RF: 0 carvedilol [Coreg] 6.25 mg tablet 6.25 mg PO BID RF: 0 clopidogrel 75 mg tablet 75 mg PO DAILY RF: 0 memantine 10 mg tablet 10 mg PO BID RF: 0 galantamine 16 mg capsule,ext rel. pellets 24 hr 16 mg PO QAM RF: 0 Discontinued prednisone 10 mg tablet 7.5 mg PO DAILY RF: 0 Referrals / Follow Up: London Gupta MD [Primary Care Provider] - See Referral Note (Reschedule appointment due to quarantine. ) Disposition Disposition (needs filled in before D/C Order can be placed): Home Health Service Documented by User: Dr. Enzo Vaughan DO 11/02/21 17:32 Providers Date of Admission: 10/29/21 Reason For Visit: RESP FAILURE/COVID Medications at Discharge Home Medications insulin glargine 18 units SC DAILY 09/28/16 calcium carbonate-vitamin D3 1 tab PO DAILY MDD bones 03/18/19 pramipexole 1.5 mg PO QHS 03/18/19 comp.stocking,knee,long,medium #2 each 02/08/21 Disability placard #1 ea NS 07/26/21 atorvastatin 20 mg PO QHS 10/29/21 carvedilol [Coreg] 6.25 mg PO BID 10/29/21 clopidogrel 75 mg PO DAILY 10/29/21 galantamine 16 mg PO QAM 10/29/21 memantine 10 mg PO BID 10/29/21 dexamethasone 6 mg PO DAILY #18 tab 11/02/21 ABG / Lab / Microbiology Data Result Diagrams: 11/01/21 07:11 11/02/21 06:43 Discharge Plan Admission Admit Date/Time: 10/29/21 15:40 Primary Reason for Your Visit: Shortness of breath Attending Provider: Enzo Vaughan Primary Care Provider: London Gupta Consulting Providers: Husam Daniels ; Juno Escalante ; Cammie Otto [employer] Instructions Additional Instructions / Restrictions: * [facility] Home Health Services with start of care on . *Patient is to maintain quarantined through November 16, 2021 to complete 20-day quarantine course. Discharge Orders/Prescriptions Prescriptions: New dexamethasone 2 mg tablet 6 mg PO DAILY Qty: 18 RF: 0 Continued (DME) comp.stocking,knee,long,medium Misc See Rx Instructions .ROUTE .MEDSUPPLY Qty: 2 RF: 0 (DME) Disability placard See Rx Instructions .Route .MEDSUPPLY Qty: 1 RF: 0 insulin glargine 100 UNITS/ML insulin pen 18 units SC DAILY RF: 0 pramipexole 1 MG tablet 1.5 mg PO QHS RF: 0 calcium carbonate-vitamin D3 1 EACH tablet 1 tab PO DAILY MDD bones RF: 0 atorvastatin 40 mg tablet 20 mg PO QHS RF: 0 carvedilol [Coreg] 6.25 mg tablet 6.25 mg PO BID RF: 0 clopidogrel 75 mg tablet 75 mg PO DAILY RF: 0 memantine 10 mg tablet 10 mg PO BID RF: 0 galantamine 16 mg capsule,ext rel. pellets 24 hr 16 mg PO QAM RF: 0 Discontinued prednisone 10 mg tablet 7.5 mg PO DAILY RF: 0 Referrals / Follow Up: London Gupta MD [Primary Care Provider] - See Referral Note (Reschedule appointment due to quarantine. ) Disposition Disposition (needs filled in before D/C Order can be placed): Home Health Service Charges/Coding Addendum Addendum: Patient was seen and examined today independently of Jesús Downing, I talked with his nephew who is in the room at the time of my examination. Patient requires 2 L of oxygen at rest and during ambulation to maintain his pulse ox, he is expected to use the supplemental oxygen in his home and outside his home as directed. On examination he appeared in good health and spirits. Vital signs as documented . Skin warm and dry and without overt rashes. Neck without JVD, neck was supple, trachea midline, thyroid was normal. Lungs clear bilaterally, normal air movement was noted. Heart exam notable for regular rhythm, normal sounds and absence of murmurs, rubs or gallops. Abdomen unremarkable and without evidence of organomegaly, masses, or abdominal aortic enlargement. Bowel sounds are present, abdomen is not distended. Extremities nonedematous, no cyanosis was noted, no clubbing was noted. Neuro: Cranial nerves II through XII are grossly intact, no focal motor deficits were noted, sensation to light touch and pinprick intact, motor exam 5/5 throughout. Psych: Patient is alert and oriented x3, he does not appear anxious or depressed, he does not appear agitated. Patient appears stable for discharge at this time, I have reviewed Jesús Downing's discharge summary including his medical assessment and plan of care and endorse it. Visit Charges Inpatient E&M: [id number] Disch Hosp
[2021-11-02] MEDS: Albuterol Sulfate 8 gm Inhaler (60 puffs) 2 PUFF INHALATION (15:14)
--- NOTE | 2021-11-02 16:33 | NURSING ---
called daughter reviewed dc instructions / home health/ medication changes and follow upcare
== END 2021-11-02 18:09 | disposition home health service (06) | DRG 177 ==
LOC: ED 15:47 → ICU 16:02 → PCU 10-31 01:49
PROVIDERS: Internal Medicine Critical Care Medicine; Physician Assistant; Admitting Provider Internal Medicine; Emergency Provider Emergency Medicine; PCP Family Medicine; Visit Provider Internal Medicine
DX: U07.1 COVID-19 (principal); J12.82 Pneumonia due to coronavirus disease 2019; J96.21 Acute and chronic respiratory failure with hypoxia; G93.41 Metabolic encephalopathy; I50.20 Unspecified systolic (congestive) heart failure; E27.40 Unspecified adrenocortical insufficiency; I95.9 Hypotension, unspecified; F01.50 Vascular dementia, unspecified severity, without behavioral disturbance, psychotic disturbance, mood disturbance, and anxiety; Z79.4 Long term (current) use of insulin; G30.1 Alzheimer's disease with late onset; I10 Essential (primary) hypertension; I25.10 Atherosclerotic heart disease of native coronary artery without angina pectoris; H11.31 Conjunctival hemorrhage, right eye; G47.33 Obstructive sleep apnea (adult) (pediatric); E78.5 Hyperlipidemia, unspecified; I16.0 Hypertensive urgency; Z66 Do not resuscitate; Z91.19 Patient's noncompliance with other medical treatment and regimen
CPT/HCPCS: 36415; 36600; 70450; 71045; 71275; 80048; 80053; 80076; 82550; 82803; 82962; 83605; 83735; 83880; 84484; 85025; 85379; 86140; 87040; 87070; 87205; 87426; 87449; 93005; 94640; 97110; 97162; 97166; 97530; 97535; 99251; 99285; J7050; Q9967; A4216; G0463; J0248; J1940